=== PATIENT | male | born 1955 | race Caucasian/White ===

== ENCOUNTER 2017-08-10 07:54 | Day surgery (SDC) | payer OTHER, SELFPAY ==
[~2017-08-10] VITALS: Ht 193 cm; Wt 109.8 kg
[~2017-08-10 07:54] MED LIST: ASPI81EC PO; Aspirin EC81 MG PO; CITA20 PO; DIPH50 PO; DOCU100 PO; FLUO10 PO; Fluoxetine HCl10 M1; GLIP10 PO; HYDR1TAB94 PO; INSUASPI SC; INSULANPEN SC; LOSA25; LOSA25 PO; METF500 PO; NAPR220 PO; Norco 5-325 Ta1 EACH; ONE DAILY COMP1 EACH; Omeprazole20 M1 PO; PREG75; PREG75 PO; RANI150 PO; SIMV40 PO; SULTRIDS; TRAM50 PO; WARF10 PO; WARF3 PO
== END 2017-08-10 09:56 | disposition home or self-care (01) ==
LOC: ORSCMMR 07:54
PROVIDERS: Internal Medicine Gastroenterology
PROC: 0DJD8ZZ Inspection of Lower Intestinal Tract, Via Natural or Artificial Opening Endoscopic (ICD-10-PCS; principal; 2017-08-10 09:00)
DX: Z12.11 Encounter for screening for malignant neoplasm of colon (principal); K57.30 Diverticulosis of large intestine without perforation or abscess without bleeding; E11.40 Type 2 diabetes mellitus with diabetic neuropathy, unspecified; I10 Essential (primary) hypertension; Z79.4 Long term (current) use of insulin; Z79.899 Other long term (current) drug therapy; Z87.891 Personal history of nicotine dependence
CPT/HCPCS: 82947; J7120

== ENCOUNTER 2017-09-11 15:46 | Emergency (ER) | payer OTHER, SELFPAY ==
[~2017-09-11] VITALS: Ht 193 cm; Wt 108.9 kg
[2017-09-11 16:21] LABS: BASOPHILS ABSOLUTE AUTO 0.01 K/mm3 (0.00-0.23); BASOPHILS PERCENT AUTO 0 % (0-2); EOSINOPHILS ABSOLUTE AUTO 0.13 K/mm3 (0.00-0.68); EOSINOPHILS PERCENT AUTO 3 % (0-6); Hematocrit 38.4 % (37.0-53.0); Hemoglobin 12.7 g/dL (13.5-17.5); IMMATURE GRAN ABSOLUTE AUTO 0.01 K/mm3 (0.00-0.10); IMMATURE GRAN PERCENT AUTO 0 % (0-1); LYMPHOCYTES ABSOLUTE AUTO 1.41 K/mm3 (0.84-5.20); LYMPHOCYTES PERCENT AUTO 29 % (21-46); MONOCYTES ABSOLUTE AUTO 0.46 K/mm3 (0.16-1.47); MONOCYTES PERCENT AUTO 10 % (4-13); Mean Corpuscular HGB 31.4 pg (26.0-34.0); Mean Corpuscular HGB Conc 33.1 g/dL (31.5-36.5); Mean Corpuscular Volume 95 fL (80-100); Mean Platelet Volume 10.9 fL (9.1-12.4); NEUTROPHILS ABSOLUTE AUTO 2.83 K/mm3 (1.96-9.15); NEUTROPHILS PERCENT AUTO 58 % (41-73); Platelet Count 112 K/mm3 (150-400); RDW Coefficient Variation 13.2 % (11.7-14.2); RDW Standard Deviation 46.5 fL (35.1-46.3); Red Blood Cell Count 4.05 M/mm3 (4.30-5.90); White Blood Cell Count 4.85 K/mm3 (4.00-11.30)
[2017-09-11 16:38] LABS: Anion Gap 5 mmol/L (6-16); Blood Urea Nitrogen 15 mg/dL (8-24); Bun/Creatinine Ratio 19.6 (12.0-20.0); CO2, Blood 27 mmol/L (21-32); Calcium, Blood 8.6 mg/dL (8.5-10.1); Chloride, Blood 107 mmol/L (98-108); Creatinine, Blood 0.77 mg/dL (0.60-1.20); Glomerular Filtration Rate >60 (60-); Glucose, Blood 113 mg/dL (70-99); Potassium, Blood 3.9 mmol/L (3.5-5.5); Sodium, Blood 139 mmol/L (136-145); Troponin I <0.015 ng/mL (0.000-0.040)
[2017-09-11] MEDS ORDERED: Norco 5-325 Ta1 EACH PO (16:54)
[2017-09-11] MEDS ORDERED: Kristalose20 GM PO (16:54)
== END 2017-09-11 17:05 | disposition home or self-care (01) ==
LOC: ER 15:46
PROVIDERS: Emergency Medicine
DX: S29.9XXA Unspecified injury of thorax, initial encounter (principal); E11.9 Type 2 diabetes mellitus without complications; E66.01 Morbid (severe) obesity due to excess calories; J44.9 Chronic obstructive pulmonary disease, unspecified; Z87.891 Personal history of nicotine dependence; Z86.718 Personal history of other venous thrombosis and embolism; Z68.29 Body mass index [BMI] 29.0-29.9, adult; X58.XXXA Exposure to other specified factors, initial encounter
CPT/HCPCS: 36415; 71111; 80048; 84484; 85025; 93005; 93010; 96374; 96376; 99284; J3010

== ENCOUNTER → 2018-08-22 | Outpatient (CLI) | payer OTHER ==
[~2018-08-22] MED LIST changes: +Kristalose20 GM PO; +Norco 5-325 Ta1 EACH PO
== END | disposition home or self-care (01) ==
LOC: PLD 08:39 → LAB SHORT 08:39
DX: M77.40 Metatarsalgia, unspecified foot (principal); M89.9 Disorder of bone, unspecified; M21.6X9 Other acquired deformities of unspecified foot
CPT/HCPCS: 88300

== ENCOUNTER 2019-03-30 07:09 | Day surgery (SDC) | payer OTHER ==
[~2019-03-30] VITALS: Ht 190.5 cm; Wt 115.0 kg
--- NOTE | 2019-03-30 09:43 | NUR ---
PT ARRIVED BACK TO RECOVERY ROOM IN BED. LEFT GROIN SITE SOFT NON-TENDER WITH NO HEMATOMA NO PULSATILE BLEEDING. PT DENIES CP. PT C/O "15" CHRONIC RIGHT SHOULDER PAIN. CALL LIGHT IN REACH.
--- NOTE | 2019-03-30 12:26 | NUR ---
PT AMBULATED TO TO VOID. LEFT GROIN SITE STILL SOFT NON-TENDER WITH INTACT DRESSING AND NO HEMATOMA AND NO PULSATILE BLEEDING. 20 G IV DISCONTINUED FROM LEFT FA WITH INTACT CANNULA. PT ESCORTED OUT VIA WHEELCHAIR ESCORT.
== END 2019-03-30 12:30 | disposition home or self-care (01) ==
LOC: MHTC 07:09
DX: E11.51 Type 2 diabetes mellitus with diabetic peripheral angiopathy without gangrene (principal); E11.622 Type 2 diabetes mellitus with other skin ulcer; L97.519 Non-pressure chronic ulcer of other part of right foot with unspecified severity; I10 Essential (primary) hypertension; E78.00 Pure hypercholesterolemia, unspecified; M79.7 Fibromyalgia; Z88.0 Allergy status to penicillin; Z88.8 Allergy status to other drugs, medicaments and biological substances; Z79.82 Long term (current) use of aspirin; Z79.899 Other long term (current) drug therapy; Z79.4 Long term (current) use of insulin; Z87.891 Personal history of nicotine dependence
CPT/HCPCS: 36247; 75716; 75774; 99152; 99153; A9270-GY; C1760; C1769; C1887; C1894; J0360; J1644; J2250; J3010; J7030; Q9967

== ENCOUNTER 2019-04-13 08:00 | Day surgery (SDC) | payer OTHER | END 2019-04-13 23:19 | disposition home or self-care (01) | LOC: WOUND 08:00 | DX: E11.621 Type 2 diabetes mellitus with foot ulcer (principal); L97.515 Non-pressure chronic ulcer of other part of right foot with muscle involvement without evidence of necrosis; J44.9 Chronic obstructive pulmonary disease, unspecified; F32.9 Major depressive disorder, single episode, unspecified; E11.21 Type 2 diabetes mellitus with diabetic nephropathy; Z87.891 Personal history of nicotine dependence; Z79.4 Long term (current) use of insulin; Z79.899 Other long term (current) drug therapy; Z79.82 Long term (current) use of aspirin; Z88.0 Allergy status to penicillin | CPT/HCPCS: 87071; 87075; 87077; 87147; 87186; 87205 ==

== ENCOUNTER 2019-04-17 16:43 | Day surgery (SDC) | payer OTHER | END 2019-04-17 23:15 | disposition home or self-care (01) | LOC: WOUND 16:43 | DX: E11.621 Type 2 diabetes mellitus with foot ulcer (principal); L97.515 Non-pressure chronic ulcer of other part of right foot with muscle involvement without evidence of necrosis; J44.9 Chronic obstructive pulmonary disease, unspecified; F32.9 Major depressive disorder, single episode, unspecified; E11.21 Type 2 diabetes mellitus with diabetic nephropathy; Z79.4 Long term (current) use of insulin; Z79.899 Other long term (current) drug therapy ==

== ENCOUNTER 2019-04-27 13:50 | Day surgery (SDC) | payer OTHER | END 2019-04-27 23:09 | disposition home or self-care (01) | LOC: WOUND 13:50 | DX: E11.621 Type 2 diabetes mellitus with foot ulcer (principal); L97.412 Non-pressure chronic ulcer of right heel and midfoot with fat layer exposed; E11.21 Type 2 diabetes mellitus with diabetic nephropathy; J44.9 Chronic obstructive pulmonary disease, unspecified; F32.9 Major depressive disorder, single episode, unspecified; Z79.4 Long term (current) use of insulin; Z79.899 Other long term (current) drug therapy; Z79.82 Long term (current) use of aspirin ==

== ENCOUNTER 2019-05-02 14:54 | Day surgery (SDC) | payer OTHER | END 2019-05-02 23:04 | disposition home or self-care (01) | LOC: WOUND 14:54 | DX: E11.621 Type 2 diabetes mellitus with foot ulcer (principal); L97.513 Non-pressure chronic ulcer of other part of right foot with necrosis of muscle; E11.52 Type 2 diabetes mellitus with diabetic peripheral angiopathy with gangrene; I96 Gangrene, not elsewhere classified; M06.9 Rheumatoid arthritis, unspecified; M79.7 Fibromyalgia; J44.9 Chronic obstructive pulmonary disease, unspecified; F32.9 Major depressive disorder, single episode, unspecified; C94.80 Other specified leukemias not having achieved remission; E11.21 Type 2 diabetes mellitus with diabetic nephropathy; Z86.718 Personal history of other venous thrombosis and embolism; Z88.0 Allergy status to penicillin; Z88.8 Allergy status to other drugs, medicaments and biological substances; Z79.4 Long term (current) use of insulin; Z79.82 Long term (current) use of aspirin; Z79.899 Other long term (current) drug therapy ==

== ENCOUNTER 2019-05-09 15:15 | Day surgery (SDC) | payer OTHER | END 2019-05-09 23:33 | disposition home or self-care (01) | LOC: WOUND 15:15 | DX: E11.621 Type 2 diabetes mellitus with foot ulcer (principal); L97.515 Non-pressure chronic ulcer of other part of right foot with muscle involvement without evidence of necrosis; E11.21 Type 2 diabetes mellitus with diabetic nephropathy; J44.9 Chronic obstructive pulmonary disease, unspecified; F32.9 Major depressive disorder, single episode, unspecified; Z79.4 Long term (current) use of insulin; Z79.899 Other long term (current) drug therapy ==

== ENCOUNTER 2019-05-16 16:13 | Day surgery (SDC) | payer OTHER | END 2019-05-16 17:13 | disposition home or self-care (01) | LOC: WOUND | DX: E11.621 Type 2 diabetes mellitus with foot ulcer (principal); L97.515 Non-pressure chronic ulcer of other part of right foot with muscle involvement without evidence of necrosis; E11.21 Type 2 diabetes mellitus with diabetic nephropathy; E11.40 Type 2 diabetes mellitus with diabetic neuropathy, unspecified; Q66.12 Congenital talipes calcaneovarus, left foot; Q66.11 Congenital talipes calcaneovarus, right foot; C95.90 Leukemia, unspecified not having achieved remission; M06.9 Rheumatoid arthritis, unspecified; M79.7 Fibromyalgia; J44.9 Chronic obstructive pulmonary disease, unspecified; F32.9 Major depressive disorder, single episode, unspecified; Z86.718 Personal history of other venous thrombosis and embolism; Z88.0 Allergy status to penicillin; Z88.8 Allergy status to other drugs, medicaments and biological substances; Z79.82 Long term (current) use of aspirin; Z79.84 Long term (current) use of oral hypoglycemic drugs; Z79.899 Other long term (current) drug therapy ==

== ENCOUNTER 2019-05-23 15:12 | Day surgery (SDC) | payer OTHER | END 2019-05-23 22:35 | disposition home or self-care (01) | LOC: WOUND 15:12 | DX: E11.621 Type 2 diabetes mellitus with foot ulcer (principal); L97.512 Non-pressure chronic ulcer of other part of right foot with fat layer exposed; E11.40 Type 2 diabetes mellitus with diabetic neuropathy, unspecified; E11.21 Type 2 diabetes mellitus with diabetic nephropathy; C94.80 Other specified leukemias not having achieved remission; M06.9 Rheumatoid arthritis, unspecified; M79.7 Fibromyalgia; J44.9 Chronic obstructive pulmonary disease, unspecified; F32.9 Major depressive disorder, single episode, unspecified; Q66.12 Congenital talipes calcaneovarus, left foot; Q66.11 Congenital talipes calcaneovarus, right foot; Z88.0 Allergy status to penicillin; Z88.8 Allergy status to other drugs, medicaments and biological substances; Z86.718 Personal history of other venous thrombosis and embolism; Z79.01 Long term (current) use of anticoagulants; Z79.4 Long term (current) use of insulin; Z79.82 Long term (current) use of aspirin; Z79.899 Other long term (current) drug therapy ==

== ENCOUNTER 2019-05-30 09:07 | Day surgery (SDC) | payer OTHER | END 2019-05-30 22:44 | disposition home or self-care (01) | LOC: WOUND | DX: E11.621 Type 2 diabetes mellitus with foot ulcer (principal); E11.21 Type 2 diabetes mellitus with diabetic nephropathy; L97.415 Non-pressure chronic ulcer of right heel and midfoot with muscle involvement without evidence of necrosis; J44.9 Chronic obstructive pulmonary disease, unspecified; F32.9 Major depressive disorder, single episode, unspecified; G25.81 Restless legs syndrome; Z79.4 Long term (current) use of insulin; Z79.899 Other long term (current) drug therapy ==

== ENCOUNTER 2019-06-06 00:11 | Day surgery (SDC) | payer OTHER | END 2019-06-06 23:02 | disposition home or self-care (01) | LOC: WOUND 00:11 | DX: E11.621 Type 2 diabetes mellitus with foot ulcer (principal); E11.21 Type 2 diabetes mellitus with diabetic nephropathy; J44.9 Chronic obstructive pulmonary disease, unspecified; F32.9 Major depressive disorder, single episode, unspecified; L97.415 Non-pressure chronic ulcer of right heel and midfoot with muscle involvement without evidence of necrosis; Z79.4 Long term (current) use of insulin; Z79.899 Other long term (current) drug therapy | CPT/HCPCS: 87081 ==

== ENCOUNTER 2019-06-13 00:15 | Day surgery (SDC) | payer OTHER | END 2019-06-13 22:47 | disposition home or self-care (01) | LOC: WOUND 00:15 | DX: E11.621 Type 2 diabetes mellitus with foot ulcer (principal); E11.21 Type 2 diabetes mellitus with diabetic nephropathy; L97.412 Non-pressure chronic ulcer of right heel and midfoot with fat layer exposed; J44.9 Chronic obstructive pulmonary disease, unspecified; F32.9 Major depressive disorder, single episode, unspecified; Z79.4 Long term (current) use of insulin; Z79.899 Other long term (current) drug therapy ==

== ENCOUNTER 2019-06-20 00:11 | Day surgery (SDC) | payer OTHER | END 2019-06-20 22:57 | disposition home or self-care (01) | LOC: WOUND 00:11 | DX: E11.621 Type 2 diabetes mellitus with foot ulcer (principal); E11.21 Type 2 diabetes mellitus with diabetic nephropathy; L97.415 Non-pressure chronic ulcer of right heel and midfoot with muscle involvement without evidence of necrosis; J44.9 Chronic obstructive pulmonary disease, unspecified; F32.9 Major depressive disorder, single episode, unspecified; Z79.899 Other long term (current) drug therapy; Z79.4 Long term (current) use of insulin ==

== ENCOUNTER 2019-07-04 00:13 | Day surgery (SDC) | payer OTHER | END 2019-07-04 23:01 | disposition home or self-care (01) | LOC: WOUND 00:13 | DX: E11.621 Type 2 diabetes mellitus with foot ulcer (principal); L97.415 Non-pressure chronic ulcer of right heel and midfoot with muscle involvement without evidence of necrosis; J44.9 Chronic obstructive pulmonary disease, unspecified; E11.21 Type 2 diabetes mellitus with diabetic nephropathy; Z79.899 Other long term (current) drug therapy; Z79.84 Long term (current) use of oral hypoglycemic drugs; Z79.82 Long term (current) use of aspirin ==

== ENCOUNTER → 2019-07-11 | Day surgery (SDC) | payer OTHER | LOC: WOUND 00:12 | DX: E11.621 Type 2 diabetes mellitus with foot ulcer (principal); L97.515 Non-pressure chronic ulcer of other part of right foot with muscle involvement without evidence of necrosis; J44.9 Chronic obstructive pulmonary disease, unspecified; M06.9 Rheumatoid arthritis, unspecified; M79.7 Fibromyalgia; F32.9 Major depressive disorder, single episode, unspecified; E11.40 Type 2 diabetes mellitus with diabetic neuropathy, unspecified; Z86.718 Personal history of other venous thrombosis and embolism; Z79.899 Other long term (current) drug therapy | CPT/HCPCS: Q4196 ==

== ENCOUNTER 2019-07-14 08:19 | Day surgery (SDC) | payer OTHER | END 2019-07-14 22:47 | disposition home or self-care (01) | LOC: ATC 08:19 | DX: E11.621 Type 2 diabetes mellitus with foot ulcer (principal); E11.40 Type 2 diabetes mellitus with diabetic neuropathy, unspecified; E11.21 Type 2 diabetes mellitus with diabetic nephropathy; L97.419 Non-pressure chronic ulcer of right heel and midfoot with unspecified severity; J44.9 Chronic obstructive pulmonary disease, unspecified; F32.9 Major depressive disorder, single episode, unspecified; Z79.4 Long term (current) use of insulin; Z79.899 Other long term (current) drug therapy; Z79.82 Long term (current) use of aspirin ==

== ENCOUNTER 2019-07-18 02:11 | Day surgery (SDC) | payer OTHER | END 2019-07-18 23:00 | disposition home or self-care (01) | LOC: WOUND 02:11 | DX: E11.621 Type 2 diabetes mellitus with foot ulcer (principal); E11.21 Type 2 diabetes mellitus with diabetic nephropathy; L97.415 Non-pressure chronic ulcer of right heel and midfoot with muscle involvement without evidence of necrosis; J44.9 Chronic obstructive pulmonary disease, unspecified; F32.9 Major depressive disorder, single episode, unspecified; Z79.899 Other long term (current) drug therapy; Z79.4 Long term (current) use of insulin | CPT/HCPCS: Q4196 ==

== ENCOUNTER 2019-07-25 00:54 | Day surgery (SDC) | payer OTHER | END 2019-07-25 12:00 | disposition home or self-care (01) | LOC: WOUND 00:54 | DX: E11.621 Type 2 diabetes mellitus with foot ulcer (principal); E11.21 Type 2 diabetes mellitus with diabetic nephropathy; J44.9 Chronic obstructive pulmonary disease, unspecified; F32.9 Major depressive disorder, single episode, unspecified; L97.415 Non-pressure chronic ulcer of right heel and midfoot with muscle involvement without evidence of necrosis; Z79.899 Other long term (current) drug therapy; Z79.4 Long term (current) use of insulin | CPT/HCPCS: Q4196 ==

== ENCOUNTER 2019-08-01 00:15 | Day surgery (SDC) | payer OTHER | END 2019-08-01 22:53 | disposition home or self-care (01) | LOC: WOUND 00:15 | DX: E11.621 Type 2 diabetes mellitus with foot ulcer (principal); E11.21 Type 2 diabetes mellitus with diabetic nephropathy; J44.9 Chronic obstructive pulmonary disease, unspecified; F32.9 Major depressive disorder, single episode, unspecified; L97.415 Non-pressure chronic ulcer of right heel and midfoot with muscle involvement without evidence of necrosis; Z79.899 Other long term (current) drug therapy; Z79.4 Long term (current) use of insulin; Z79.82 Long term (current) use of aspirin | CPT/HCPCS: Q4196 ==

== ENCOUNTER 2019-08-08 00:24 | Day surgery (SDC) | payer OTHER | END 2019-08-08 22:51 | disposition home or self-care (01) | LOC: WOUND 00:24 | DX: E11.621 Type 2 diabetes mellitus with foot ulcer (principal); L97.513 Non-pressure chronic ulcer of other part of right foot with necrosis of muscle; E11.21 Type 2 diabetes mellitus with diabetic nephropathy | CPT/HCPCS: Q4133 ==

== ENCOUNTER 2019-08-15 00:19 | Day surgery (SDC) | payer OTHER | END 2019-08-15 22:49 | disposition home or self-care (01) | LOC: WOUND 00:19 | DX: E11.621 Type 2 diabetes mellitus with foot ulcer (principal); E11.40 Type 2 diabetes mellitus with diabetic neuropathy, unspecified; E11.21 Type 2 diabetes mellitus with diabetic nephropathy; J44.9 Chronic obstructive pulmonary disease, unspecified; L97.412 Non-pressure chronic ulcer of right heel and midfoot with fat layer exposed; Z79.899 Other long term (current) drug therapy; Z79.4 Long term (current) use of insulin | CPT/HCPCS: Q4133 ==

== ENCOUNTER 2019-08-22 00:09 | Day surgery (SDC) | payer OTHER | END 2019-08-22 22:50 | disposition home or self-care (01) | LOC: WOUND 00:09 | DX: E11.621 Type 2 diabetes mellitus with foot ulcer (principal); J44.9 Chronic obstructive pulmonary disease, unspecified; E11.21 Type 2 diabetes mellitus with diabetic nephropathy; L97.412 Non-pressure chronic ulcer of right heel and midfoot with fat layer exposed; Z79.4 Long term (current) use of insulin | CPT/HCPCS: Q4133 ==

== ENCOUNTER 2019-09-05 00:06 | Day surgery (SDC) | payer OTHER | END 2019-09-05 22:56 | disposition home or self-care (01) | LOC: WOUND 00:06 | DX: E11.621 Type 2 diabetes mellitus with foot ulcer (principal); E11.21 Type 2 diabetes mellitus with diabetic nephropathy; J44.9 Chronic obstructive pulmonary disease, unspecified; L97.412 Non-pressure chronic ulcer of right heel and midfoot with fat layer exposed; Z79.899 Other long term (current) drug therapy; Z79.4 Long term (current) use of insulin | CPT/HCPCS: Q4133 ==

== ENCOUNTER 2019-09-12 00:24 | Day surgery (SDC) | payer OTHER | END 2019-09-12 22:53 | disposition home or self-care (01) | LOC: WOUND 00:24 | DX: E11.621 Type 2 diabetes mellitus with foot ulcer (principal); L97.412 Non-pressure chronic ulcer of right heel and midfoot with fat layer exposed; E11.21 Type 2 diabetes mellitus with diabetic nephropathy; J44.9 Chronic obstructive pulmonary disease, unspecified ==

== ENCOUNTER 2019-09-19 00:34 | Day surgery (SDC) | payer OTHER | END 2019-09-19 22:38 | disposition home or self-care (01) | LOC: WOUND 00:34 | DX: E11.621 Type 2 diabetes mellitus with foot ulcer (principal); L97.512 Non-pressure chronic ulcer of other part of right foot with fat layer exposed; E11.21 Type 2 diabetes mellitus with diabetic nephropathy; E11.40 Type 2 diabetes mellitus with diabetic neuropathy, unspecified ==

== ENCOUNTER 2019-09-26 00:07 | Day surgery (SDC) | payer OTHER | END 2019-09-26 22:37 | disposition home or self-care (01) | LOC: WOUND 00:07 | DX: E11.621 Type 2 diabetes mellitus with foot ulcer (principal); E11.21 Type 2 diabetes mellitus with diabetic nephropathy; J44.9 Chronic obstructive pulmonary disease, unspecified; F32.9 Major depressive disorder, single episode, unspecified; L97.412 Non-pressure chronic ulcer of right heel and midfoot with fat layer exposed; Z79.4 Long term (current) use of insulin; Z79.899 Other long term (current) drug therapy ==

== ENCOUNTER 2019-10-03 00:11 | Day surgery (SDC) | payer OTHER | END 2019-10-03 22:47 | disposition home or self-care (01) | LOC: WOUND 00:11 | DX: E11.621 Type 2 diabetes mellitus with foot ulcer (principal); L97.412 Non-pressure chronic ulcer of right heel and midfoot with fat layer exposed; E11.21 Type 2 diabetes mellitus with diabetic nephropathy; Z79.4 Long term (current) use of insulin; Z79.82 Long term (current) use of aspirin; Z79.899 Other long term (current) drug therapy | CPT/HCPCS: G0463 ==

== ENCOUNTER 2019-10-10 00:26 | Day surgery (SDC) | payer OTHER | END 2019-10-10 23:13 | disposition home or self-care (01) | LOC: WOUND 00:26 | DX: E11.621 Type 2 diabetes mellitus with foot ulcer (principal); E11.21 Type 2 diabetes mellitus with diabetic nephropathy; L97.509 Non-pressure chronic ulcer of other part of unspecified foot with unspecified severity; Z79.4 Long term (current) use of insulin | CPT/HCPCS: G0463 ==

== ENCOUNTER 2019-10-17 00:10 | Day surgery (SDC) | payer OTHER | END 2019-10-17 22:54 | disposition home or self-care (01) | LOC: WOUND 00:10 | DX: E11.621 Type 2 diabetes mellitus with foot ulcer (principal); E11.21 Type 2 diabetes mellitus with diabetic nephropathy; J44.9 Chronic obstructive pulmonary disease, unspecified; F32.9 Major depressive disorder, single episode, unspecified; L97.412 Non-pressure chronic ulcer of right heel and midfoot with fat layer exposed; Z79.4 Long term (current) use of insulin; Z79.899 Other long term (current) drug therapy ==

== ENCOUNTER 2019-10-24 00:16 | Day surgery (SDC) | payer OTHER | END 2019-10-24 23:34 | disposition home or self-care (01) | LOC: WOUND 00:16 | DX: E11.621 Type 2 diabetes mellitus with foot ulcer (principal); L97.512 Non-pressure chronic ulcer of other part of right foot with fat layer exposed; E11.21 Type 2 diabetes mellitus with diabetic nephropathy ==

== ENCOUNTER 2019-10-31 00:06 | Day surgery (SDC) | payer OTHER | END 2019-10-31 23:07 | disposition home or self-care (01) | LOC: WOUND 00:06 | DX: E11.621 Type 2 diabetes mellitus with foot ulcer (principal); E11.21 Type 2 diabetes mellitus with diabetic nephropathy; J44.9 Chronic obstructive pulmonary disease, unspecified; F32.9 Major depressive disorder, single episode, unspecified; L97.412 Non-pressure chronic ulcer of right heel and midfoot with fat layer exposed; Z79.4 Long term (current) use of insulin; Z79.899 Other long term (current) drug therapy; Z79.82 Long term (current) use of aspirin ==

== ENCOUNTER 2019-11-14 00:17 | Day surgery (SDC) | payer OTHER | END 2019-11-14 23:15 | disposition home or self-care (01) | LOC: WOUND 00:17 | DX: E11.621 Type 2 diabetes mellitus with foot ulcer (principal); E11.21 Type 2 diabetes mellitus with diabetic nephropathy; L97.412 Non-pressure chronic ulcer of right heel and midfoot with fat layer exposed; J44.9 Chronic obstructive pulmonary disease, unspecified; F32.9 Major depressive disorder, single episode, unspecified; Z79.899 Other long term (current) drug therapy; Z79.4 Long term (current) use of insulin ==

== ENCOUNTER 2019-11-28 00:13 | Day surgery (SDC) | payer OTHER | END 2019-11-28 22:41 | disposition home or self-care (01) | LOC: WOUND 00:13 | DX: E11.621 Type 2 diabetes mellitus with foot ulcer (principal); E11.21 Type 2 diabetes mellitus with diabetic nephropathy; L97.419 Non-pressure chronic ulcer of right heel and midfoot with unspecified severity ==

== ENCOUNTER 2020-01-16 00:10 | Day surgery (SDC) | payer OTHER | END 2020-01-16 23:13 | disposition home or self-care (01) | LOC: WOUND 00:10 | DX: E11.621 Type 2 diabetes mellitus with foot ulcer (principal); L97.512 Non-pressure chronic ulcer of other part of right foot with fat layer exposed; E11.21 Type 2 diabetes mellitus with diabetic nephropathy; J44.9 Chronic obstructive pulmonary disease, unspecified; Z79.4 Long term (current) use of insulin; Z79.899 Other long term (current) drug therapy | CPT/HCPCS: G0463 ==

== ENCOUNTER 2020-01-30 00:35 | Day surgery (SDC) | payer OTHER | END 2020-01-30 22:39 | disposition home or self-care (01) | LOC: WOUND 00:35 | DX: E11.621 Type 2 diabetes mellitus with foot ulcer (principal); L97.512 Non-pressure chronic ulcer of other part of right foot with fat layer exposed; E11.21 Type 2 diabetes mellitus with diabetic nephropathy; J44.9 Chronic obstructive pulmonary disease, unspecified; Z79.4 Long term (current) use of insulin ==

== ENCOUNTER 2020-02-13 00:34 | Day surgery (SDC) | payer OTHER | END 2020-02-13 22:46 | disposition home or self-care (01) | LOC: WOUND 00:34 | DX: E11.621 Type 2 diabetes mellitus with foot ulcer (principal); E11.21 Type 2 diabetes mellitus with diabetic nephropathy; L97.512 Non-pressure chronic ulcer of other part of right foot with fat layer exposed; Z79.4 Long term (current) use of insulin | CPT/HCPCS: G0463 ==

== ENCOUNTER 2020-02-27 05:28 | Day surgery (SDC) | payer OTHER | END 2020-02-27 23:04 | disposition home or self-care (01) | LOC: WOUND 05:28 | DX: E11.621 Type 2 diabetes mellitus with foot ulcer (principal); L97.412 Non-pressure chronic ulcer of right heel and midfoot with fat layer exposed; E11.52 Type 2 diabetes mellitus with diabetic peripheral angiopathy with gangrene; I96 Gangrene, not elsewhere classified; E11.40 Type 2 diabetes mellitus with diabetic neuropathy, unspecified; Z79.4 Long term (current) use of insulin; Z79.82 Long term (current) use of aspirin; Z79.899 Other long term (current) drug therapy; Z88.0 Allergy status to penicillin; Z88.8 Allergy status to other drugs, medicaments and biological substances | CPT/HCPCS: G0463 ==

== ENCOUNTER 2020-03-12 00:39 | Day surgery (SDC) | payer OTHER | END 2020-03-12 22:52 | disposition home or self-care (01) | LOC: WOUND 00:39 | DX: E11.621 Type 2 diabetes mellitus with foot ulcer (principal); L97.412 Non-pressure chronic ulcer of right heel and midfoot with fat layer exposed; E11.52 Type 2 diabetes mellitus with diabetic peripheral angiopathy with gangrene; I96 Gangrene, not elsewhere classified; E11.40 Type 2 diabetes mellitus with diabetic neuropathy, unspecified; E11.21 Type 2 diabetes mellitus with diabetic nephropathy; M06.9 Rheumatoid arthritis, unspecified; M79.7 Fibromyalgia; J44.9 Chronic obstructive pulmonary disease, unspecified; F32.9 Major depressive disorder, single episode, unspecified; Z79.4 Long term (current) use of insulin; Z79.82 Long term (current) use of aspirin; Z79.899 Other long term (current) drug therapy; Z86.718 Personal history of other venous thrombosis and embolism; Z88.0 Allergy status to penicillin; Z88.8 Allergy status to other drugs, medicaments and biological substances ==

== ENCOUNTER 2020-03-26 02:03 | Day surgery (SDC) | payer OTHER | END 2020-03-26 23:11 | disposition home or self-care (01) | LOC: WOUND 02:03 | DX: E11.621 Type 2 diabetes mellitus with foot ulcer (principal); L97.412 Non-pressure chronic ulcer of right heel and midfoot with fat layer exposed; E11.52 Type 2 diabetes mellitus with diabetic peripheral angiopathy with gangrene; I96 Gangrene, not elsewhere classified; E11.21 Type 2 diabetes mellitus with diabetic nephropathy; E11.40 Type 2 diabetes mellitus with diabetic neuropathy, unspecified; C95.90 Leukemia, unspecified not having achieved remission; M06.9 Rheumatoid arthritis, unspecified; M79.7 Fibromyalgia; J44.9 Chronic obstructive pulmonary disease, unspecified; F32.9 Major depressive disorder, single episode, unspecified; Z79.4 Long term (current) use of insulin; Z79.82 Long term (current) use of aspirin; Z79.899 Other long term (current) drug therapy; Z86.718 Personal history of other venous thrombosis and embolism; Z88.0 Allergy status to penicillin; Z88.8 Allergy status to other drugs, medicaments and biological substances ==

== ENCOUNTER 2020-04-02 00:53 | Day surgery (SDC) | payer OTHER | END 2020-04-02 23:01 | disposition home or self-care (01) | LOC: WOUND 00:53 | DX: E11.621 Type 2 diabetes mellitus with foot ulcer (principal); L97.512 Non-pressure chronic ulcer of other part of right foot with fat layer exposed; E11.21 Type 2 diabetes mellitus with diabetic nephropathy; J44.9 Chronic obstructive pulmonary disease, unspecified; F32.9 Major depressive disorder, single episode, unspecified; Z79.4 Long term (current) use of insulin; Z79.899 Other long term (current) drug therapy ==

== ENCOUNTER 2020-04-10 00:58 | Day surgery (SDC) | payer OTHER | END 2020-04-10 22:45 | disposition home or self-care (01) | LOC: WOUND 00:58 | DX: E11.621 Type 2 diabetes mellitus with foot ulcer (principal); L97.412 Non-pressure chronic ulcer of right heel and midfoot with fat layer exposed; E11.52 Type 2 diabetes mellitus with diabetic peripheral angiopathy with gangrene; I96 Gangrene, not elsewhere classified; E11.40 Type 2 diabetes mellitus with diabetic neuropathy, unspecified; E11.21 Type 2 diabetes mellitus with diabetic nephropathy; C94.80 Other specified leukemias not having achieved remission; M06.9 Rheumatoid arthritis, unspecified; M79.7 Fibromyalgia; J44.9 Chronic obstructive pulmonary disease, unspecified; F32.9 Major depressive disorder, single episode, unspecified; Z86.718 Personal history of other venous thrombosis and embolism; Z79.4 Long term (current) use of insulin; Z79.82 Long term (current) use of aspirin; Z79.899 Other long term (current) drug therapy; Z88.0 Allergy status to penicillin; Z88.8 Allergy status to other drugs, medicaments and biological substances | CPT/HCPCS: Q4133 ==

== ENCOUNTER 2020-04-16 00:56 | Day surgery (SDC) | payer OTHER | END 2020-04-16 23:36 | disposition home or self-care (01) | LOC: WOUND 00:56 | DX: E11.621 Type 2 diabetes mellitus with foot ulcer (principal); L97.412 Non-pressure chronic ulcer of right heel and midfoot with fat layer exposed; E11.52 Type 2 diabetes mellitus with diabetic peripheral angiopathy with gangrene; I96 Gangrene, not elsewhere classified; E11.40 Type 2 diabetes mellitus with diabetic neuropathy, unspecified; E11.21 Type 2 diabetes mellitus with diabetic nephropathy; C94.80 Other specified leukemias not having achieved remission; M06.9 Rheumatoid arthritis, unspecified; M79.7 Fibromyalgia; J44.9 Chronic obstructive pulmonary disease, unspecified; F32.9 Major depressive disorder, single episode, unspecified; Z86.718 Personal history of other venous thrombosis and embolism; Z79.4 Long term (current) use of insulin; Z79.82 Long term (current) use of aspirin; Z79.899 Other long term (current) drug therapy; Z88.0 Allergy status to penicillin; Z88.8 Allergy status to other drugs, medicaments and biological substances | CPT/HCPCS: Q4133 ==

== ENCOUNTER 2020-04-22 00:39 | Day surgery (SDC) | payer OTHER | END 2020-04-22 22:52 | disposition home or self-care (01) | LOC: WOUND 00:39 | DX: E11.621 Type 2 diabetes mellitus with foot ulcer (principal); E11.21 Type 2 diabetes mellitus with diabetic nephropathy; L97.512 Non-pressure chronic ulcer of other part of right foot with fat layer exposed; J44.9 Chronic obstructive pulmonary disease, unspecified; Z79.84 Long term (current) use of oral hypoglycemic drugs | CPT/HCPCS: Q4133 ==

== ENCOUNTER 2020-04-30 00:27 | Day surgery (SDC) | payer OTHER | END 2020-04-30 22:39 | disposition home or self-care (01) | LOC: WOUND 00:27 | DX: E11.621 Type 2 diabetes mellitus with foot ulcer (principal); L97.412 Non-pressure chronic ulcer of right heel and midfoot with fat layer exposed; E11.40 Type 2 diabetes mellitus with diabetic neuropathy, unspecified; E11.21 Type 2 diabetes mellitus with diabetic nephropathy; M06.9 Rheumatoid arthritis, unspecified; M79.7 Fibromyalgia; J44.9 Chronic obstructive pulmonary disease, unspecified; F32.9 Major depressive disorder, single episode, unspecified; Z79.4 Long term (current) use of insulin; Z79.82 Long term (current) use of aspirin; Z79.899 Other long term (current) drug therapy; Z86.718 Personal history of other venous thrombosis and embolism | CPT/HCPCS: Q4133 ==

== ENCOUNTER 2020-05-06 00:14 | Day surgery (SDC) | payer OTHER | END 2020-05-06 22:54 | disposition home or self-care (01) | LOC: WOUND 00:14 | DX: E11.621 Type 2 diabetes mellitus with foot ulcer (principal); L97.412 Non-pressure chronic ulcer of right heel and midfoot with fat layer exposed; E11.52 Type 2 diabetes mellitus with diabetic peripheral angiopathy with gangrene; I96 Gangrene, not elsewhere classified; E11.40 Type 2 diabetes mellitus with diabetic neuropathy, unspecified; M06.9 Rheumatoid arthritis, unspecified; M79.7 Fibromyalgia; J44.9 Chronic obstructive pulmonary disease, unspecified; F32.9 Major depressive disorder, single episode, unspecified; Z86.718 Personal history of other venous thrombosis and embolism; Z79.4 Long term (current) use of insulin; Z79.82 Long term (current) use of aspirin; Z79.899 Other long term (current) drug therapy ==

== ENCOUNTER 2020-05-13 00:22 | Day surgery (SDC) | payer OTHER | END 2020-05-13 23:47 | disposition home or self-care (01) | LOC: WOUND 00:22 | DX: E11.621 Type 2 diabetes mellitus with foot ulcer (principal); L97.512 Non-pressure chronic ulcer of other part of right foot with fat layer exposed; E11.21 Type 2 diabetes mellitus with diabetic nephropathy; J44.9 Chronic obstructive pulmonary disease, unspecified; Z79.4 Long term (current) use of insulin; Z79.899 Other long term (current) drug therapy | CPT/HCPCS: Q4133 ==

== ENCOUNTER 2020-05-20 00:22 | Day surgery (SDC) | payer OTHER | END 2020-05-20 23:04 | disposition home or self-care (01) | LOC: WOUND 00:22 | DX: E11.621 Type 2 diabetes mellitus with foot ulcer (principal); L97.412 Non-pressure chronic ulcer of right heel and midfoot with fat layer exposed; E11.40 Type 2 diabetes mellitus with diabetic neuropathy, unspecified; E11.21 Type 2 diabetes mellitus with diabetic nephropathy; M06.9 Rheumatoid arthritis, unspecified; J44.9 Chronic obstructive pulmonary disease, unspecified; M79.7 Fibromyalgia; F32.9 Major depressive disorder, single episode, unspecified; Z79.4 Long term (current) use of insulin; Z79.82 Long term (current) use of aspirin; Z79.899 Other long term (current) drug therapy; Z86.718 Personal history of other venous thrombosis and embolism; Z88.0 Allergy status to penicillin; Z88.8 Allergy status to other drugs, medicaments and biological substances | CPT/HCPCS: Q4133 ==

== ENCOUNTER 2020-05-27 00:44 | Day surgery (SDC) | payer OTHER | END 2020-05-27 22:53 | disposition home or self-care (01) | LOC: WOUND 00:44 | DX: E11.621 Type 2 diabetes mellitus with foot ulcer (principal); L97.512 Non-pressure chronic ulcer of other part of right foot with fat layer exposed; E11.21 Type 2 diabetes mellitus with diabetic nephropathy; Z79.4 Long term (current) use of insulin; J44.9 Chronic obstructive pulmonary disease, unspecified; M79.7 Fibromyalgia; M06.9 Rheumatoid arthritis, unspecified; Z86.718 Personal history of other venous thrombosis and embolism ==

== ENCOUNTER 2020-06-03 00:34 | Day surgery (SDC) | payer OTHER, SELFPAY ==
[~2020-06-03 00:34] MED LIST changes: -LOSA25 PO
== END 2020-06-03 23:13 | disposition home or self-care (01) ==
LOC: WOUND 00:34
DX: E11.621 Type 2 diabetes mellitus with foot ulcer (principal); L97.412 Non-pressure chronic ulcer of right heel and midfoot with fat layer exposed; E11.40 Type 2 diabetes mellitus with diabetic neuropathy, unspecified; E11.21 Type 2 diabetes mellitus with diabetic nephropathy; M06.9 Rheumatoid arthritis, unspecified; M79.7 Fibromyalgia; J44.9 Chronic obstructive pulmonary disease, unspecified; F32.9 Major depressive disorder, single episode, unspecified; Z79.4 Long term (current) use of insulin; Z79.82 Long term (current) use of aspirin; Z79.899 Other long term (current) drug therapy; Z88.0 Allergy status to penicillin; Z88.8 Allergy status to other drugs, medicaments and biological substances; Z86.718 Personal history of other venous thrombosis and embolism

== ENCOUNTER 2020-06-10 00:25 | Day surgery (SDC) | payer OTHER | END 2020-06-10 22:46 | disposition home or self-care (01) | LOC: WOUND 00:25 | DX: E11.621 Type 2 diabetes mellitus with foot ulcer (principal); L97.512 Non-pressure chronic ulcer of other part of right foot with fat layer exposed; M06.9 Rheumatoid arthritis, unspecified; M79.7 Fibromyalgia; F32.9 Major depressive disorder, single episode, unspecified; J44.9 Chronic obstructive pulmonary disease, unspecified; Z85.6 Personal history of leukemia; Z86.718 Personal history of other venous thrombosis and embolism; Z88.0 Allergy status to penicillin; Z88.8 Allergy status to other drugs, medicaments and biological substances; Z79.82 Long term (current) use of aspirin; Z79.4 Long term (current) use of insulin; Z79.899 Other long term (current) drug therapy | CPT/HCPCS: G0463 ==

== ENCOUNTER 2020-06-17 00:20 | Day surgery (SDC) | payer OTHER, SELFPAY | END 2020-06-17 22:44 | disposition home or self-care (01) | LOC: WOUND 00:20 | DX: E11.621 Type 2 diabetes mellitus with foot ulcer (principal); L97.512 Non-pressure chronic ulcer of other part of right foot with fat layer exposed; E11.21 Type 2 diabetes mellitus with diabetic nephropathy ==

== ENCOUNTER 2020-06-24 00:39 | Day surgery (SDC) | payer OTHER, SELFPAY | END 2020-06-24 23:45 | LOC: WOUND 00:39 | DX: E11.621 Type 2 diabetes mellitus with foot ulcer (principal); L97.512 Non-pressure chronic ulcer of other part of right foot with fat layer exposed; E11.21 Type 2 diabetes mellitus with diabetic nephropathy; M79.7 Fibromyalgia; F32.9 Major depressive disorder, single episode, unspecified; Z79.4 Long term (current) use of insulin ==

== ENCOUNTER 2020-07-01 00:33 | Day surgery (SDC) | payer OTHER, SELFPAY | END 2020-07-01 23:30 | disposition home or self-care (01) | LOC: WOUND 00:33 | DX: E11.621 Type 2 diabetes mellitus with foot ulcer (principal); L97.412 Non-pressure chronic ulcer of right heel and midfoot with fat layer exposed; E11.21 Type 2 diabetes mellitus with diabetic nephropathy; J44.9 Chronic obstructive pulmonary disease, unspecified | CPT/HCPCS: A9270 ==

== ENCOUNTER 2020-07-08 00:29 | Day surgery (SDC) | payer OTHER, SELFPAY | END 2020-07-08 23:58 | disposition home or self-care (01) | LOC: WOUND 00:29 | DX: E11.621 Type 2 diabetes mellitus with foot ulcer (principal); L97.412 Non-pressure chronic ulcer of right heel and midfoot with fat layer exposed; E11.21 Type 2 diabetes mellitus with diabetic nephropathy; M06.9 Rheumatoid arthritis, unspecified; J44.9 Chronic obstructive pulmonary disease, unspecified; F32.9 Major depressive disorder, single episode, unspecified; Q66.71 Congenital pes cavus, right foot; Z85.6 Personal history of leukemia; Z86.718 Personal history of other venous thrombosis and embolism ==

== ENCOUNTER 2020-07-15 00:41 | Day surgery (SDC) | payer OTHER, SELFPAY | END 2020-07-15 22:56 | disposition home or self-care (01) | LOC: WOUND 00:41 | DX: E11.621 Type 2 diabetes mellitus with foot ulcer (principal); L97.512 Non-pressure chronic ulcer of other part of right foot with fat layer exposed; E11.21 Type 2 diabetes mellitus with diabetic nephropathy; M06.9 Rheumatoid arthritis, unspecified; M79.7 Fibromyalgia; J44.9 Chronic obstructive pulmonary disease, unspecified; F32.9 Major depressive disorder, single episode, unspecified; Z85.6 Personal history of leukemia; Z86.718 Personal history of other venous thrombosis and embolism ==

== ENCOUNTER 2020-07-22 00:47 | Day surgery (SDC) | payer OTHER | END 2020-07-22 22:54 | disposition home or self-care (01) | LOC: WOUND 00:47 | DX: E11.621 Type 2 diabetes mellitus with foot ulcer (principal); L97.412 Non-pressure chronic ulcer of right heel and midfoot with fat layer exposed; E11.21 Type 2 diabetes mellitus with diabetic nephropathy; M06.9 Rheumatoid arthritis, unspecified; J44.9 Chronic obstructive pulmonary disease, unspecified; M79.7 Fibromyalgia; Q66.71 Congenital pes cavus, right foot; F32.9 Major depressive disorder, single episode, unspecified; Z85.6 Personal history of leukemia; Z86.718 Personal history of other venous thrombosis and embolism | CPT/HCPCS: G0463 ==

== ENCOUNTER 2020-07-29 01:20 | Day surgery (SDC) | payer OTHER | END 2020-07-29 23:08 | disposition home or self-care (01) | LOC: WOUND 01:20 | DX: E11.621 Type 2 diabetes mellitus with foot ulcer (principal); L97.415 Non-pressure chronic ulcer of right heel and midfoot with muscle involvement without evidence of necrosis; E11.21 Type 2 diabetes mellitus with diabetic nephropathy; J44.9 Chronic obstructive pulmonary disease, unspecified; M79.7 Fibromyalgia; M06.9 Rheumatoid arthritis, unspecified; Q66.12 Congenital talipes calcaneovarus, left foot; Q66.11 Congenital talipes calcaneovarus, right foot; Z86.718 Personal history of other venous thrombosis and embolism; Z85.6 Personal history of leukemia | CPT/HCPCS: A9270; G0463 ==

== ENCOUNTER 2020-08-05 00:07 | Day surgery (SDC) | payer OTHER | END 2020-08-05 23:03 | disposition home or self-care (01) | LOC: WOUND 00:07 | DX: E11.621 Type 2 diabetes mellitus with foot ulcer (principal); L97.415 Non-pressure chronic ulcer of right heel and midfoot with muscle involvement without evidence of necrosis; J44.9 Chronic obstructive pulmonary disease, unspecified; M79.7 Fibromyalgia; E11.21 Type 2 diabetes mellitus with diabetic nephropathy; Z86.718 Personal history of other venous thrombosis and embolism | CPT/HCPCS: Q4196 ==

== ENCOUNTER 2020-08-12 00:39 | Day surgery (SDC) | payer OTHER | END 2020-08-12 23:01 | disposition home or self-care (01) | LOC: WOUND 00:39 | DX: E11.621 Type 2 diabetes mellitus with foot ulcer (principal); L97.512 Non-pressure chronic ulcer of other part of right foot with fat layer exposed; E11.21 Type 2 diabetes mellitus with diabetic nephropathy; J44.9 Chronic obstructive pulmonary disease, unspecified | CPT/HCPCS: Q4196 ==

== ENCOUNTER 2020-08-19 04:43 | Inpatient (IN) | payer OTHER, MEDICARE ==
[~2020-08-19] VITALS: Ht 190.5 cm; Wt 113.8 kg
[2020-08-19 05:13] LABS: BASOPHILS ABSOLUTE AUTO 0.02 K/mm3 (0.00-0.23); BASOPHILS PERCENT AUTO 0 % (0-2); EOSINOPHILS ABSOLUTE AUTO 0.07 K/mm3 (0.00-0.68); EOSINOPHILS PERCENT AUTO 1 % (0-6); Hematocrit 36.6 % (37.0-53.0); Hemoglobin 11.6 g/dL (13.5-17.5); IMMATURE GRAN ABSOLUTE AUTO 0.01 K/mm3 (0.00-0.10); IMMATURE GRAN PERCENT AUTO 0 % (0-1); LYMPHOCYTES ABSOLUTE AUTO 0.82 K/mm3 (0.84-5.20); LYMPHOCYTES PERCENT AUTO 13 % (21-46); MONOCYTES ABSOLUTE AUTO 0.48 K/mm3 (0.16-1.47); MONOCYTES PERCENT AUTO 8 % (4-13); Mean Corpuscular HGB Conc 31.7 g/dL (31.5-36.5); Mean Corpuscular Volume 88 fL (80-100); Mean Platelet Volume 10.3 fL (9.1-12.4); NEUTROPHILS ABSOLUTE AUTO 4.91 K/mm3 (1.96-9.15); NEUTROPHILS PERCENT AUTO 78 % (41-73); Platelet Count 138 K/mm3 (150-400); RDW Coefficient Variation 15.7 % (11.7-14.2); RDW Standard Deviation 50.8 fL (35.1-46.3); Red Blood Cell Count 4.14 M/mm3 (4.30-5.90); White Blood Cell Count 6.31 K/mm3 (4.00-11.30)
[2020-08-19 05:33] LABS: Alanine Aminotransfer (ALT/SGP 29 U/L (12-78); Albumin, Blood 3.5 g/dL (3.4-5.0); Albumin/Globulin Ratio 0.7 (0.8-1.8); Alk Phos 95 U/L (50-136); Anion Gap 5 mmol/L (6-16); Aspartate Aminotrans (AST/SGOT 20 U/L (12-37); Bilirubin, Total 1.1 mg/dL (0.1-1.0); Blood Urea Nitrogen 16 mg/dL (8-24); Bun/Creatinine Ratio 24.2 (12.0-20.0); CO2, Blood 27 mmol/L (21-32); Calcium, Blood 9.2 mg/dL (8.5-10.1); Chloride, Blood 106 mmol/L (98-108); Creatinine, Blood 0.66 mg/dL (0.60-1.20); Globulin, Blood 4.8 g/dL (2.2-4.0); Glomerular Filtration Rate >60 (60-); Glucose, Blood 157 mg/dL (70-99); Potassium, Blood 3.7 mmol/L (3.5-5.5); Sodium, Blood 138 mmol/L (136-145); Total Protein, Blood 8.3 g/dL (6.4-8.2); Troponin I <0.015 ng/mL (0.000-0.040)
[2020-08-19 08:32] LABS: CPK Creatine Kinase 92 U/L (39-308)
--- NOTE | 2020-08-19 10:10 | NUR ---
PT ARRIVES FROM [facility], ESCORTED BY HEART CENTER STAFF. UPON PT ARRIVAL AND ASSESSMENT OF RT RADIAL SITE, PT IS FOUND TO HAVE LARGE HEMATOMA MEDIAL TO TR BAND, HEART CENTER STAFF APPLY PRESSURE AND APPLY SECOND TR BAND, AND INFLATE TO 12 CC. 1ST TR BAND WNL, HEART CENTER STAFF ADDS 2 CC AIR, MAKING THE TOTAL IN 1ST BAND 12 CC. PT IS A&O, RESP EVEN AND UNLABORED ON ROOM AIR, HRR, DENIES CHEST PAIN/PRESSURE AT THIS TIME, NG TUBE CONTINUES IN PLACE AND SET UP TO INTERMITTENT SUCTION.
[2020-08-19 13:20] LABS: CPK Creatine Kinase 98 U/L (39-308)
--- NOTE | 2020-08-19 16:04 | NUR ---
SHIFT SUMMARY: PT CONTINUES A&OX4, RESP EVEN AND UNLABORED, HRR. BOTH TR BANDS HAVE BEEN REMOVED, TRANSPARENT DRESSING OVER INSERTION SITE AND FOREARM/WRIST WRAPPED IN [place]. PT TOLERATING WELL. NG TUBE CONTINUES IN PLACED, SET TO LOW INTERMITTENT SUCTION, LOW AMOUNT OF GREEN/BROWN OUTPUT. DR GORDON TO ROOM, HAS PLACED ORDERS FOR POSSIBLE DC OF NG TUBE THIS EVENING IF PT CONTINUES TO DO WELL. PT C/O DISCOMFORT TO THROAT, PRN MEDICATIONS IN PLACE. WILL CONTINUE TO MONITOR AND TREAT ACCORDINGLY UNTIL CHANGE OF SHIFT.
--- NOTE | 2020-08-19 19:00 | NUR ---
UPDATE NG TUBE PULLED BY THIS RN DUE TO LITTLE OUTPUT THROUGHOUT SHIFT AND ORDERS FROM DR. GORDON. PT DENIES ANY NAUSEA OR ABD PAIN. PT REPORTS HE HAD MEDIUM BM.
[2020-08-19 19:03] LABS: CPK Creatine Kinase 82 U/L (39-308)
[2020-08-20 00:17] LABS: BASOPHILS ABSOLUTE AUTO 0.01 K/mm3 (0.00-0.23); BASOPHILS PERCENT AUTO 0 % (0-2); EOSINOPHILS ABSOLUTE AUTO 0.11 K/mm3 (0.00-0.68); EOSINOPHILS PERCENT AUTO 3 % (0-6); Hematocrit 29.3 % (37.0-53.0); Hemoglobin 9.2 g/dL (13.5-17.5); IMMATURE GRAN ABSOLUTE AUTO 0.01 K/mm3 (0.00-0.10); IMMATURE GRAN PERCENT AUTO 0 % (0-1); LYMPHOCYTES ABSOLUTE AUTO 0.69 K/mm3 (0.84-5.20); LYMPHOCYTES PERCENT AUTO 19 % (21-46); MONOCYTES ABSOLUTE AUTO 0.41 K/mm3 (0.16-1.47); MONOCYTES PERCENT AUTO 11 % (4-13); Mean Corpuscular HGB 27.9 pg (26.0-34.0); Mean Corpuscular HGB Conc 31.4 g/dL (31.5-36.5); Mean Corpuscular Volume 89 fL (80-100); Mean Platelet Volume 10.1 fL (9.1-12.4); NEUTROPHILS ABSOLUTE AUTO 2.37 K/mm3 (1.96-9.15); NEUTROPHILS PERCENT AUTO 66 % (41-73); Platelet Count 99 K/mm3 (150-400); RDW Coefficient Variation 15.8 % (11.7-14.2); RDW Standard Deviation 51.1 fL (35.1-46.3)
[2020-08-20 00:36] LABS: Alanine Aminotransfer (ALT/SGP 20 U/L (12-78); Albumin, Blood 2.7 g/dL (3.4-5.0); Alk Phos 74 U/L (50-136); Anion Gap 5 mmol/L (6-16); Aspartate Aminotrans (AST/SGOT 15 U/L (12-37); Bilirubin, Total 0.8 mg/dL (0.1-1.0); Blood Urea Nitrogen 12 mg/dL (8-24); Bun/Creatinine Ratio 18.6 (12.0-20.0); CO2, Blood 27 mmol/L (21-32); Calcium, Blood 8.1 mg/dL (8.5-10.1); Chloride, Blood 110 mmol/L (98-108); Creatinine, Blood 0.64 mg/dL (0.60-1.20); Glomerular Filtration Rate >60 (60-); Glucose, Blood 97 mg/dL (70-99); Magnesium, Blood 1.8 mg/dL (1.6-2.4); Phosphorus, Blood 2.6 mg/dL (2.5-4.9); Potassium, Blood 3.6 mmol/L (3.5-5.5); Sodium, Blood 142 mmol/L (136-145)
[2020-08-20 00:51] LABS: Albumin/Globulin Ratio 0.8 (0.8-1.8); Globulin, Blood 3.5 g/dL (2.2-4.0); Total Protein, Blood 6.2 g/dL (6.4-8.2)
--- NOTE | 2020-08-20 04:43 | NUR ---
SHIFT SUMMARY NO ACUTE CHANGES THIS SHIFT. VSS. AXO. ON RA. IN SR, SLIGHT HOTN. TR BAND TO RIGHT WRIST STABLE WITH ARMBOARD ON. PT VOIDING. R FOOT DRESSING REMAINS CDI. PT DENYING CP T/O SHIFT. HAD BM AT BEGINNING OF SHIFT WITH PASSING OF FLATUS LTER IN SHIFT. PT REMIANS NPO. PT STATES PAIN TO ABD, EVEN WITH PALP, HAS RECEDED. LR INFUSING PER EMAR. WILL CONTINUE TO MONITOR UNTIL SHIFT CHANGE.
--- NOTE | 2020-08-20 09:28 | NUR ---
PT ALERT AND ORIENTED X4. ON ROOM AIR SATING ABOVE 93%. TELE SHOWING SINUS WITH HR 70-80'S. DENIES CHEST PAIN/PRESSURE THIS AM. NITRO PATCH TAKEN OFF AND SKIN WIPED CLEAN DUE TO BP 96/60. VITAL SIGNS STABLE WITH SOFT BP. SKIN C/D/I. RIGHT RADIAL SIGHT SCANT DRAINAGE UNDER DRESSING. NO SIGNS OF ACTIVE BLEEDING OR HEMATOMA, ARM BOARD IN PLACE AND EDUCATION PROVIDED ON POST ANGIO CARE. RIGHT DIABETIC FOOT WOUND DRESSING INTACT. LR INFUSING AT 125 ML/HR. PT UP TO BATHROOM FEELING "STEADY" ON HIS FEET. WILL CONTINUE TO MONITOR.
[2020-08-20] MEDS ORDERED: ASPI325 PO (10:48)
[2020-08-20] MEDS ORDERED: BENMENLOZ MT (10:50)
[2020-08-20] MEDS ORDERED: AZO CRANBERRY PO (10:53)
[2020-08-20] MEDS ORDERED: ONDA4ODT MM (10:54)
[2020-08-20] MEDS ORDERED: NITR.4SL SL (10:54)
[2020-08-20] MEDS ORDERED: DILT180 PO (10:56)
--- NOTE | 2020-08-20 11:52 | NUR ---
DISCHARGE: NO ACUTE CHANGES FROM THIS AM. RIGHT DIABETIC ULCER WOUND DRESSING CHANGED PER WOUND CARE ORDERS. PT ABLE TO HAVE BM. DR. ESPINOSATRATE IN TO SEE PT. DISCHARGE ORDERS. DISCHARGE INSTRUCTIONS REVIEWED, QUESTIONS ANSWERED. POST ANGIO CARE EDUCATION PROVIDED. IV REMOVED PER PROTOCOL. PT TAKEN OUT TO CAR VIA WHEELCHAIR.
== END 2020-08-20 11:53 | disposition home or self-care (01) | DRG 287 ==
LOC: ER 04:43 → ICUW 06:14 → PCU 06:14
PROVIDERS: Emergency Medicine; ADMIT Family Medicine
PROC: B2111ZZ Fluoroscopy of Multiple Coronary Arteries using Low Osmolar Contrast (ICD-10-PCS; principal; 2020-08-19)
PROC: 4A023N7 Measurement of Cardiac Sampling and Pressure, Left Heart, Percutaneous Approach (ICD-10-PCS; 2020-08-19)
DX: I25.111 Atherosclerotic heart disease of native coronary artery with angina pectoris with documented spasm (principal); K56.609 Unspecified intestinal obstruction, unspecified as to partial versus complete obstruction; E11.621 Type 2 diabetes mellitus with foot ulcer; L97.519 Non-pressure chronic ulcer of other part of right foot with unspecified severity; D53.9 Nutritional anemia, unspecified; D69.6 Thrombocytopenia, unspecified; Z68.31 Body mass index [BMI] 31.0-31.9, adult; E66.9 Obesity, unspecified; J44.9 Chronic obstructive pulmonary disease, unspecified; M54.9 Dorsalgia, unspecified; G89.29 Other chronic pain; M79.7 Fibromyalgia; Z79.4 Long term (current) use of insulin; Z79.82 Long term (current) use of aspirin; Z79.899 Other long term (current) drug therapy; Z86.718 Personal history of other venous thrombosis and embolism; Z88.0 Allergy status to penicillin; Z88.8 Allergy status to other drugs, medicaments and biological substances; Z87.891 Personal history of nicotine dependence; Z98.890 Other specified postprocedural states
CPT/HCPCS: 36415; 74176; 76937; 80053; 82550; 82947; 83690; 83735; 84100; 84484; 85025; 86850; 86900; 86901; 93005; 93010; 93458; 96374; 96375; 99285-25; A9270; C1769; C1894; G0480; J1170; J1644; J1815; J2250; J2405; J3010; J7030; J7050; J7120; Q9967

== ENCOUNTER 2020-08-26 00:27 | Day surgery (SDC) | payer OTHER ==
[~2020-08-26 00:27] MED LIST changes: +ASPI325 PO; +AZO CRANBERRY PO; +BENMENLOZ MT; +DILT180 PO; +NITR.4SL SL; +ONDA4ODT MM
== END 2020-08-26 22:57 | disposition home or self-care (01) ==
LOC: WOUND 00:27
DX: E11.621 Type 2 diabetes mellitus with foot ulcer (principal); L97.512 Non-pressure chronic ulcer of other part of right foot with fat layer exposed; E11.21 Type 2 diabetes mellitus with diabetic nephropathy
CPT/HCPCS: G0463

== ENCOUNTER 2020-09-02 00:46 | Day surgery (SDC) | payer OTHER ==
[~2020-09-02 00:46] MED LIST changes: +CLOP75 PO; +LIPITOR80 MG PO; +LOSA25 PO
== END 2020-09-02 22:53 | disposition home or self-care (01) ==
LOC: WOUND 00:46
DX: E11.621 Type 2 diabetes mellitus with foot ulcer (principal); L97.415 Non-pressure chronic ulcer of right heel and midfoot with muscle involvement without evidence of necrosis; E11.21 Type 2 diabetes mellitus with diabetic nephropathy; J44.9 Chronic obstructive pulmonary disease, unspecified; M79.7 Fibromyalgia; Z85.6 Personal history of leukemia; Z86.718 Personal history of other venous thrombosis and embolism

== ENCOUNTER 2020-09-09 00:24 | Day surgery (SDC) | payer OTHER | END 2020-09-09 22:57 | disposition home or self-care (01) | LOC: WOUND 00:24 | DX: E11.621 Type 2 diabetes mellitus with foot ulcer (principal); L97.415 Non-pressure chronic ulcer of right heel and midfoot with muscle involvement without evidence of necrosis; E11.21 Type 2 diabetes mellitus with diabetic nephropathy; M06.9 Rheumatoid arthritis, unspecified; M79.7 Fibromyalgia; J44.9 Chronic obstructive pulmonary disease, unspecified; F32.9 Major depressive disorder, single episode, unspecified; Z85.6 Personal history of leukemia; Z86.718 Personal history of other venous thrombosis and embolism ==

== ENCOUNTER 2020-09-11 09:09 | Emergency (ER) | payer OTHER ==
[~2020-09-11] VITALS: Ht 190.5 cm; Wt 108.9 kg
[2020-09-11 09:22] LABS: BASOPHILS ABSOLUTE AUTO 0.02 K/mm3 (0.00-0.23); BASOPHILS PERCENT AUTO 1 % (0-2); EOSINOPHILS ABSOLUTE AUTO 0.12 K/mm3 (0.00-0.68); EOSINOPHILS PERCENT AUTO 3 % (0-6); Hematocrit 31.9 % (37.0-53.0); Hemoglobin 10.3 g/dL (13.5-17.5); IMMATURE GRAN ABSOLUTE AUTO 0.01 K/mm3 (0.00-0.10); IMMATURE GRAN PERCENT AUTO 0 % (0-1); LYMPHOCYTES ABSOLUTE AUTO 0.74 K/mm3 (0.84-5.20); LYMPHOCYTES PERCENT AUTO 20 % (21-46); MONOCYTES PERCENT AUTO 11 % (4-13); Mean Corpuscular HGB 28.4 pg (26.0-34.0); Mean Corpuscular HGB Conc 32.3 g/dL (31.5-36.5); Mean Corpuscular Volume 88 fL (80-100); Mean Platelet Volume 10.8 fL (9.1-12.4); NEUTROPHILS ABSOLUTE AUTO 2.43 K/mm3 (1.96-9.15); NEUTROPHILS PERCENT AUTO 65 % (41-73); Platelet Count 102 K/mm3 (150-400); RDW Coefficient Variation 15.9 % (11.7-14.2); RDW Standard Deviation 50.8 fL (35.1-46.3); Red Blood Cell Count 3.63 M/mm3 (4.30-5.90); White Blood Cell Count 3.72 K/mm3 (4.00-11.30)
[2020-09-11 09:47] LABS: Alanine Aminotransfer (ALT/SGP 27 U/L (12-78); Albumin, Blood 3.3 g/dL (3.4-5.0); Albumin/Globulin Ratio 0.8 (0.8-1.8); Alk Phos 95 U/L (50-136); Anion Gap 6 mmol/L (6-16); Aspartate Aminotrans (AST/SGOT 21 U/L (12-37); Bilirubin, Total 0.9 mg/dL (0.1-1.0); Blood Urea Nitrogen 11 mg/dL (8-24); Bun/Creatinine Ratio 16.2 (12.0-20.0); CO2, Blood 27 mmol/L (21-32); Calcium, Blood 8.6 mg/dL (8.5-10.1); Chloride, Blood 106 mmol/L (98-108); Creatinine, Blood 0.68 mg/dL (0.60-1.20); Globulin, Blood 4.4 g/dL (2.2-4.0); Glomerular Filtration Rate >60 (60-); Glucose, Blood 212 mg/dL (70-99); Potassium, Blood 3.7 mmol/L (3.5-5.5); Sodium, Blood 139 mmol/L (136-145); Total Protein, Blood 7.7 g/dL (6.4-8.2); Troponin I <0.015 ng/mL (0.000-0.040)
== END 2020-09-11 14:12 | disposition home or self-care (01) ==
LOC: ER 09:09
PROVIDERS: Emergency Medicine
DX: R07.9 Chest pain, unspecified (principal); E11.9 Type 2 diabetes mellitus without complications; J44.9 Chronic obstructive pulmonary disease, unspecified; Z79.4 Long term (current) use of insulin; Z79.899 Other long term (current) drug therapy; Z88.0 Allergy status to penicillin
CPT/HCPCS: 71045; 71275; 74175; 80053; 84484; 85025; 93005; 93010; 99285-25; A9270; Q9967

== ENCOUNTER 2020-09-16 00:12 | Day surgery (SDC) | payer OTHER | END 2020-09-16 23:11 | disposition home or self-care (01) | LOC: WOUND 00:12 | DX: E11.621 Type 2 diabetes mellitus with foot ulcer (principal); L97.415 Non-pressure chronic ulcer of right heel and midfoot with muscle involvement without evidence of necrosis; L97.512 Non-pressure chronic ulcer of other part of right foot with fat layer exposed; E11.21 Type 2 diabetes mellitus with diabetic nephropathy; J44.9 Chronic obstructive pulmonary disease, unspecified; Z86.718 Personal history of other venous thrombosis and embolism; M06.9 Rheumatoid arthritis, unspecified; M79.7 Fibromyalgia | CPT/HCPCS: G0463 ==

== ENCOUNTER 2020-09-30 00:04 | Day surgery (SDC) | payer OTHER ==
[~2020-09-30 00:04] MED LIST changes: -CLOP75 PO; -LIPITOR80 MG PO; -LOSA25 PO
== END 2020-09-30 23:03 | disposition home or self-care (01) ==
LOC: WOUND 00:04
DX: E11.621 Type 2 diabetes mellitus with foot ulcer (principal); L97.515 Non-pressure chronic ulcer of other part of right foot with muscle involvement without evidence of necrosis; E11.21 Type 2 diabetes mellitus with diabetic nephropathy; J44.9 Chronic obstructive pulmonary disease, unspecified; Z86.718 Personal history of other venous thrombosis and embolism; M06.9 Rheumatoid arthritis, unspecified
CPT/HCPCS: 87071; 87075; 87077; 87147; 87186; 87205; A9270

== ENCOUNTER → 2020-10-06 | Outpatient (CLI) | payer OTHER ==
[~2020-10-06] MED LIST changes: +Aspir 8181 MG PO; +CEPH500 PO; +CLOP75 PO; +CYAN500 PO; +DILTIAZEM 24HR180 M3 PO; +FEROSUL325 M1 PO; +FURO20 PO; +INSULANI SC; +LIPITOR80 MG PO; +LOSA25 PO; +MAGNESIUM PO; +Nadolol40 MG PO; +PROBIOTIC1 EA13 PO; +SPIR25 PO; +TRAZ100 PO
[2020-10-06 17:39] LABS: Hematocrit 33.1 % (37.0-53.0); Hemoglobin 10.3 g/dL (13.5-17.5); Mean Corpuscular HGB 27.4 pg (26.0-34.0); Mean Corpuscular HGB Conc 31.1 g/dL (31.5-36.5); Mean Corpuscular Volume 88 fL (80-100); Mean Platelet Volume 11.3 fL (9.1-12.4); Platelet Count 99 K/mm3 (150-400); RDW Coefficient Variation 16.2 % (11.7-14.2); RDW Standard Deviation 52.4 fL (35.1-46.3); Red Blood Cell Count 3.76 M/mm3 (4.30-5.90); White Blood Cell Count 2.63 K/mm3 (4.00-11.30)
[2020-10-06 17:52] LABS: Alanine Aminotransfer (ALT/SGP 41 U/L (12-78); Albumin, Blood 3.4 g/dL (3.4-5.0); Albumin/Globulin Ratio 0.7 (0.8-1.8); Alk Phos 116 U/L (50-136); Anion Gap 5 mmol/L (6-16); Aspartate Aminotrans (AST/SGOT 32 U/L (12-37); Bilirubin, Total 0.5 mg/dL (0.1-1.0); Blood Urea Nitrogen 13 mg/dL (8-24); Bun/Creatinine Ratio 18.5 (12.0-20.0); CO2, Blood 27 mmol/L (21-32); Calcium, Blood 9.1 mg/dL (8.5-10.1); Chloride, Blood 107 mmol/L (98-108); Ferritin, Serum 8 ng/mL (26-388); Globulin, Blood 4.7 g/dL (2.2-4.0); Glomerular Filtration Rate >60 (60-); Glucose, Blood 202 mg/dL (70-99); Iron Serum 33 ug/dL (65-175); Percent Saturation 8.9 % (20.0-50.0); Phosphorus, Blood 2.5 mg/dL (2.5-4.9); Potassium, Blood 3.7 mmol/L (3.5-5.5); Sodium, Blood 139 mmol/L (136-145); Thyroxine (T4) 10.6 ug/dL (4.5-12.1); Total Iron Binding Capacity 371 ug/dL (250-450); Total Protein, Blood 8.1 g/dL (6.4-8.2)
[2020-10-06 18:06] LABS: BASOPHILS ABSOLUTE MAN 0.02 K/mm3 (0.00-0.23); BASOPHILS PERCENT MAN 1 % (0-2); EOSINOPHILS ABSOLUTE MAN 0.05 K/mm3 (0.00-0.68); EOSINOPHILS PERCENT MAN 2 % (0-6); LYMPHOCYTES ABSOLUTE MAN 0.73 K/mm3 (0.84-5.20); LYMPHOCYTES PERCENT MAN 28 % (21-46); MONOCYTES ABSOLUTE MAN 0.26 K/mm3 (0.16-1.47); MONOCYTES PERCENT MAN 10 % (4-13); NEUTROPHILS ABSOLUTE MAN 1.55 K/mm3 (1.96-9.15); SEG NEUTROPHILS PERCENT MAN 59 % (41-73); TOTAL CELLS COUNTED 100
== END | disposition home or self-care (01) ==
LOC: LAB SHORT 16:20 → LAB 16:20
PROVIDERS: Nurse Practitioner
DX: D64.9 Anemia, unspecified (principal)
CPT/HCPCS: 80053; 82728; 83540; 83550; 83880; 84100; 84436; 84443; 85007; 85027

== ENCOUNTER 2020-10-07 00:10 | Day surgery (SDC) | payer OTHER, SELFPAY ==
[~2020-10-07 00:10] MED LIST changes: -Aspir 8181 MG PO; -CEPH500 PO; -CLOP75 PO; -CYAN500 PO; -DILTIAZEM 24HR180 M3 PO; -FEROSUL325 M1 PO; -FURO20 PO; -INSULANI SC; -LIPITOR80 MG PO; -LOSA25 PO; -MAGNESIUM PO; -Nadolol40 MG PO; -PROBIOTIC1 EA13 PO; -SPIR25 PO; -TRAZ100 PO
== END 2020-10-07 22:54 | disposition home or self-care (01) ==
LOC: WOUND 00:10
DX: E11.621 Type 2 diabetes mellitus with foot ulcer (principal); L97.415 Non-pressure chronic ulcer of right heel and midfoot with muscle involvement without evidence of necrosis; L97.512 Non-pressure chronic ulcer of other part of right foot with fat layer exposed; E11.21 Type 2 diabetes mellitus with diabetic nephropathy; J44.9 Chronic obstructive pulmonary disease, unspecified; M06.9 Rheumatoid arthritis, unspecified; M79.7 Fibromyalgia; Z86.718 Personal history of other venous thrombosis and embolism
CPT/HCPCS: 73630

== ENCOUNTER 2020-10-14 00:10 | Day surgery (SDC) | payer OTHER, SELFPAY | END 2020-10-14 23:02 | disposition home or self-care (01) | LOC: WOUND 00:10 | DX: E11.621 Type 2 diabetes mellitus with foot ulcer (principal); L97.415 Non-pressure chronic ulcer of right heel and midfoot with muscle involvement without evidence of necrosis; E11.21 Type 2 diabetes mellitus with diabetic nephropathy; R93.89 Abnormal findings on diagnostic imaging of other specified body structures; M06.9 Rheumatoid arthritis, unspecified; M79.7 Fibromyalgia; J44.9 Chronic obstructive pulmonary disease, unspecified; F32.9 Major depressive disorder, single episode, unspecified; Z86.718 Personal history of other venous thrombosis and embolism | CPT/HCPCS: A9270 ==

== ENCOUNTER 2020-10-22 04:46 | Day surgery (SDC) | payer OTHER, SELFPAY | END 2020-10-22 23:44 | disposition home or self-care (01) | LOC: WOUND 04:46 | DX: E11.621 Type 2 diabetes mellitus with foot ulcer (principal); L97.415 Non-pressure chronic ulcer of right heel and midfoot with muscle involvement without evidence of necrosis; L97.512 Non-pressure chronic ulcer of other part of right foot with fat layer exposed; E11.21 Type 2 diabetes mellitus with diabetic nephropathy; R93.89 Abnormal findings on diagnostic imaging of other specified body structures; J44.9 Chronic obstructive pulmonary disease, unspecified; M06.9 Rheumatoid arthritis, unspecified; M79.7 Fibromyalgia; Z86.718 Personal history of other venous thrombosis and embolism; Z88.0 Allergy status to penicillin; Z79.82 Long term (current) use of aspirin; Z79.02 Long term (current) use of antithrombotics/antiplatelets; Z79.4 Long term (current) use of insulin; Z79.899 Other long term (current) drug therapy ==

== ENCOUNTER 2020-10-28 00:34 | Day surgery (SDC) | payer OTHER, SELFPAY ==
[2020-10-28] MEDS ORDERED: FURO20 PO (11:22)
[2020-10-28] MEDS ORDERED: CYAN500 PO (11:23)
[2020-10-28] MEDS ORDERED: SPIR25 PO (11:23)
[2020-10-28] MEDS ORDERED: MAGNESIUM PO (11:24)
[2020-10-28] MEDS ORDERED: PROBIOTIC1 EA13 PO (11:24)
== END 2020-10-28 23:02 | disposition home or self-care (01) ==
LOC: WOUND 00:34
DX: E11.621 Type 2 diabetes mellitus with foot ulcer (principal); L97.512 Non-pressure chronic ulcer of other part of right foot with fat layer exposed; E11.21 Type 2 diabetes mellitus with diabetic nephropathy; R93.89 Abnormal findings on diagnostic imaging of other specified body structures; M06.9 Rheumatoid arthritis, unspecified; J44.9 Chronic obstructive pulmonary disease, unspecified; Z86.718 Personal history of other venous thrombosis and embolism

== ENCOUNTER 2020-11-04 00:23 | Day surgery (SDC) | payer OTHER ==
[~2020-11-04 00:23] MED LIST changes: +CYAN500 PO; +FURO20 PO; +MAGNESIUM PO; +PROBIOTIC1 EA13 PO; +SPIR25 PO
== END 2020-11-04 23:19 | disposition home or self-care (01) ==
LOC: WOUND 00:23
DX: E11.621 Type 2 diabetes mellitus with foot ulcer (principal); L97.415 Non-pressure chronic ulcer of right heel and midfoot with muscle involvement without evidence of necrosis; E11.21 Type 2 diabetes mellitus with diabetic nephropathy; J44.9 Chronic obstructive pulmonary disease, unspecified; Z86.718 Personal history of other venous thrombosis and embolism; R93.89 Abnormal findings on diagnostic imaging of other specified body structures

== ENCOUNTER 2020-11-05 06:49 | Day surgery (SDC) | payer OTHER, SELFPAY ==
[~2020-11-05] VITALS: Ht 190.5 cm; Wt 109.3 kg
--- NOTE | 2020-11-05 08:29 | NUR ---
11/05/20 0829 Rick Hall History, Chart, Medications and Allergies reviewed before start of procedure.MONITOR INTACT WITH CONTINUOUS PULSE OXIMETRY AND INTERMITTENT BP.3-LEAD EKG REVIEWED WITH PHYSICIAN PRIOR TO START OF PROCEDURE.O2 VIA N/C INTACT THROUGHOUT SEDATION/PROCEDURE. See Anesthesia record.
--- NOTE | 2020-11-05 10:26 | NUR ---
Patient up to Ambulate independently. Gait steady. Discharge instructions reviewed with patient. Patient verbalizes understanding. Copy given to patient to take home. Discharged via wheelchair to private car for ride home.
== END 2020-11-06 22:57 | disposition home or self-care (01) ==
LOC: ORSCMMR 06:49 → ORD 10:30 → ORSCMMR 10:30
PROVIDERS: Internal Medicine Gastroenterology
PROC: 0DB78ZX Excision of Stomach, Pylorus, Via Natural or Artificial Opening Endoscopic, Diagnostic (ICD-10-PCS; principal; 2020-11-05 07:30)
PROC: 0DBH8ZX Excision of Cecum, Via Natural or Artificial Opening Endoscopic, Diagnostic (ICD-10-PCS; principal; 2020-11-05 07:30)
PROC: 0DB98ZX Excision of Duodenum, Via Natural or Artificial Opening Endoscopic, Diagnostic (ICD-10-PCS; principal; 2020-11-05 07:30)
DX: K62.5 Hemorrhage of anus and rectum (principal); D46.4 Refractory anemia, unspecified; K74.60 Unspecified cirrhosis of liver; K76.6 Portal hypertension; K29.70 Gastritis, unspecified, without bleeding; K31.89 Other diseases of stomach and duodenum; I85.00 Esophageal varices without bleeding; D12.0 Benign neoplasm of cecum; K57.30 Diverticulosis of large intestine without perforation or abscess without bleeding; I10 Essential (primary) hypertension; I25.10 Atherosclerotic heart disease of native coronary artery without angina pectoris; E11.9 Type 2 diabetes mellitus without complications; M79.7 Fibromyalgia; I25.2 Old myocardial infarction; Z79.899 Other long term (current) drug therapy; Z79.82 Long term (current) use of aspirin; Z79.84 Long term (current) use of oral hypoglycemic drugs
CPT/HCPCS: 82947; 88305; J2370; J2704; J3010; J7120

== ENCOUNTER 2020-11-11 00:36 | Day surgery (SDC) | payer OTHER | END 2020-11-12 02:58 | disposition home or self-care (01) | LOC: WOUND 00:36 | DX: E11.621 Type 2 diabetes mellitus with foot ulcer (principal); L97.512 Non-pressure chronic ulcer of other part of right foot with fat layer exposed; E11.21 Type 2 diabetes mellitus with diabetic nephropathy; R93.89 Abnormal findings on diagnostic imaging of other specified body structures ==

== ENCOUNTER 2020-11-18 00:31 | Day surgery (SDC) | payer OTHER | END 2020-11-18 23:39 | disposition home or self-care (01) | LOC: WOUND 00:31 | DX: E11.621 Type 2 diabetes mellitus with foot ulcer (principal); L97.512 Non-pressure chronic ulcer of other part of right foot with fat layer exposed; E11.21 Type 2 diabetes mellitus with diabetic nephropathy; R93.89 Abnormal findings on diagnostic imaging of other specified body structures; Z88.0 Allergy status to penicillin; Z91.048 Other nonmedicinal substance allergy status; J44.9 Chronic obstructive pulmonary disease, unspecified | CPT/HCPCS: 87071; 87075; 87077; 87147; 87186; 87205; A9270 ==

== ENCOUNTER 2020-11-26 04:15 | Day surgery (SDC) | payer OTHER | END 2020-11-26 22:57 | disposition home or self-care (01) | LOC: WOUND 04:15 | DX: E11.621 Type 2 diabetes mellitus with foot ulcer (principal); L97.415 Non-pressure chronic ulcer of right heel and midfoot with muscle involvement without evidence of necrosis; L97.512 Non-pressure chronic ulcer of other part of right foot with fat layer exposed; E11.21 Type 2 diabetes mellitus with diabetic nephropathy; R93.89 Abnormal findings on diagnostic imaging of other specified body structures ==

== ENCOUNTER 2020-12-09 01:00 | Day surgery (SDC) | payer OTHER | END 2020-12-09 23:02 | disposition home or self-care (01) | LOC: WOUND 01:00 | DX: E11.621 Type 2 diabetes mellitus with foot ulcer (principal); L97.415 Non-pressure chronic ulcer of right heel and midfoot with muscle involvement without evidence of necrosis; E11.21 Type 2 diabetes mellitus with diabetic nephropathy; R93.89 Abnormal findings on diagnostic imaging of other specified body structures; M06.9 Rheumatoid arthritis, unspecified; M79.7 Fibromyalgia; J44.9 Chronic obstructive pulmonary disease, unspecified; Z86.718 Personal history of other venous thrombosis and embolism; Z88.0 Allergy status to penicillin; Z91.048 Other nonmedicinal substance allergy status ==

== ENCOUNTER 2020-12-11 08:23 | Inpatient (IN) | payer OTHER, MEDICARE ==
[~2020-12-11] VITALS: Ht 190.5 cm; Wt 105.7 kg
--- NOTE | 2020-12-11 11:00 | NUR ---
PT REQUESTING TO GET UP AND MOVE AROUND, UNCOMFORTABLE LAYING IN BED. UP TO BATHROOM WITH SBA; TOLERATED WELL. PUNCTURE SIDE D&I.
--- NOTE | 2020-12-11 11:08 | NUR ---
CALLED TO DR PERES REGARDING PT'S STATUS. DR. PERES WILL COME TO SEE PT. PT DANGLING AT BEDSIDE. CONTINUE TO MONITOR AND TX PER ORDERS.
--- NOTE | 2020-12-11 11:12 | NUR ---
PT'S LUNGS CLEAR, SATS 100% RA.
--- NOTE | 2020-12-11 11:20 | NUR ---
NEW ORDERS PER DR PERES TO GIVEN TYLENOL 1,000MG PO NOW. THEN RE-EVALUATE IN 30 MINS.
--- NOTE | 2020-12-11 11:49 | NUR ---
PT BECAME UNRESPONSIVE DANGLING AT BEDSIDE STARRING OUT INTO SPACE. NO RESPONSE WITH VERBAL OR TACTILE STIMULI. LAID PT DOWN AND CALLED FOR HELP. NOT ABLE TO OBTAIN BP, HR 60'S, DECREASE SATS NOTED. PALE/SCOTT COLOR SKIN. APPLIED. PT'S CONDITION CONTINUED TO DECLINE, HR 40'S AND DECREASE SATS. CODE BLUE CALLED. SEE CODE BLUE SHEET. PT TRANSFER 1CU 10.
[2020-12-11] MEDS ORDERED: CEPH500 PO (12:45)
[2020-12-11] MEDS ORDERED: TRAZ100 PO (12:46)
[2020-12-11] MEDS ORDERED: CLOP75 PO (12:47)
[2020-12-11] MEDS ORDERED: LIPITOR80 MG PO (12:47)
[2020-12-11] MEDS ORDERED: FEROSUL325 M1 PO (12:48)
[2020-12-11] MEDS ORDERED: Nadolol40 MG PO (12:49)
[2020-12-11] MEDS ORDERED: LOSA25 PO (12:49)
[2020-12-11] MEDS ORDERED: INSULANI SC (12:50)
[2020-12-11] MEDS ORDERED: METF500 PO (12:50)
[2020-12-11] MEDS ORDERED: DILTIAZEM 24HR180 M3 PO (12:51)
[2020-12-11] MEDS ORDERED: PREG75 PO (12:51)
[2020-12-11] MEDS ORDERED: Aspir 8181 MG PO (12:52)
[2020-12-11 12:54] LABS: International Normalized Ratio 1.19; Prothrombin Time Results 12.7 Sec (9.7-11.5)
[2020-12-11 12:56] LABS: Alanine Aminotransfer (ALT/SGP 32 U/L (12-78); Albumin, Blood 2.7 g/dL (3.4-5.0); Albumin/Globulin Ratio 0.7 (0.8-1.8); Alk Phos 80 U/L (50-136); Anion Gap 4 mmol/L (6-16); Aspartate Aminotrans (AST/SGOT 22 U/L (12-37); Bilirubin, Total 0.6 mg/dL (0.1-1.0); Blood Urea Nitrogen 19 mg/dL (8-24); CO2, Blood 27 mmol/L (21-32); Calcium, Blood 8.4 mg/dL (8.5-10.1); Chloride, Blood 111 mmol/L (98-108); Creatinine, Blood 0.76 mg/dL (0.60-1.20); Globulin, Blood 3.7 g/dL (2.2-4.0); Glomerular Filtration Rate >60 (60-); Glucose, Blood 197 mg/dL (70-99); Potassium, Blood 4.1 mmol/L (3.5-5.5); Sodium, Blood 142 mmol/L (136-145); Total Protein, Blood 6.4 g/dL (6.4-8.2); Troponin I <0.015 ng/mL (0.000-0.040)
[2020-12-11 12:59] LABS: Magnesium, Blood 1.8 mg/dL (1.6-2.4)
[2020-12-11 13:02] LABS: BASOPHILS ABSOLUTE AUTO 0.03 K/mm3 (0.00-0.23); BASOPHILS PERCENT AUTO 1 % (0-2); EOSINOPHILS ABSOLUTE AUTO 0.25 K/mm3 (0.00-0.68); EOSINOPHILS PERCENT AUTO 4 % (0-6); Hematocrit 28.9 % (37.0-53.0); Hemoglobin 9.1 g/dL (13.5-17.5); IMMATURE GRAN ABSOLUTE AUTO 0.02 K/mm3 (0.00-0.10); IMMATURE GRAN PERCENT AUTO 0 % (0-1); LYMPHOCYTES ABSOLUTE AUTO 1.41 K/mm3 (0.84-5.20); LYMPHOCYTES PERCENT AUTO 25 % (21-46); MONOCYTES ABSOLUTE AUTO 0.49 K/mm3 (0.16-1.47); MONOCYTES PERCENT AUTO 9 % (4-13); Mean Corpuscular HGB 29.4 pg (26.0-34.0); Mean Corpuscular HGB Conc 31.5 g/dL (31.5-36.5); Mean Corpuscular Volume 93 fL (80-100); Mean Platelet Volume 12.4 fL (9.1-12.4); NEUTROPHILS ABSOLUTE AUTO 3.49 K/mm3 (1.96-9.15); NEUTROPHILS PERCENT AUTO 61 % (41-73); Platelet Count 124 K/mm3 (150-400); RDW Coefficient Variation 17.5 % (11.7-14.2); RDW Standard Deviation 59.6 fL (35.1-46.3); White Blood Cell Count 5.69 K/mm3 (4.00-11.30)
[2020-12-11 13:23] LABS: Creatine Kinase MB 2.1 ng/mL (0.0-3.6)
[2020-12-11 15:31] LABS: Hematocrit 27.2 % (37.0-53.0); Hemoglobin 8.7 g/dL (13.5-17.5)
--- NOTE | 2020-12-11 15:49 | NUR ---
PT ARRIVED TO ICU 10 FROM DAY SURGERY AT 1225. PT WAS HERE FOR OUTPT LIVER BIOPSY. PT HAD ZORAN'D DOWN AFTER PROCEDURE AND WAS UNRESPONSIVE IN DAY SURGERY AND A CODE BLUE WAS CALLED. PT IS NOW A/O X4, PT IS PLEASANT, COOPERATIVE AND JOKING WITH STAFF. DENIES CP, PRESSURE, N/V AND SOB. PT HAD EPI GTT RUNNING PERIPHERALLY BUT WAS STOPPED ON ARRIVAL TO ICU. PICC LINE WAS PLACED IN CASE NEEDED FOR PRESSORS. PT STATES HE HAD GONE TO THE BATHROOM IN DAY SURGERY WHEN HE STARTED FEELING ILL. DID NOT HAVE A BM. PT STATES HE LAID BACK DOWN AND BEGAN PASSING OUT. PT STATES HE HAS EPISODES LIKE THIS AT HOME BUT DOES NOT PASS OUT. PT ALSO GETS VERY CHILLED AT THE SAME TIME. PT TAKEN TO CT THIS AFTERNOON. PUNCTURE SITE TO R SIDE FROM LIVER BIOPSY WITH BANDAID INTACT. Barbra BISHOP IS IN TO SEE PT AND HAS BEEN UPDATE ON EVENTS. PT HAS A CHRONIC WOUND TO R FOOT THAT HE GOES TO THE WOUND CLINIC FOR. PT HAS HAD BONES REMOVED FROM FOOT AND STATES HE HAD MRSA AT ONE POINT BUT HAS SINCE TESTED NEGATIVE. PT WEARS SPECIAL BOOT BILAT THAT ARE WITH HIM. PHOTOS TAKEN OF THE WOUND AND RE-DRESSED WOUND CARE CLINIC HAD DONE. NO SIGN OF DISTRESS NOW. CALL LIGHT IN REACH.
--- NOTE | 2020-12-11 18:58 | NUR ---
PT RESTING IN BED. A/O X4. ATE DINNER WITHOUT ISSUE. PT BECAME HYPOTENSIVE THIS EVENING. CALLED DR. BARRERA WHO ORDERED A 1L BOLUS. PT RESPONDED WELL TO BOLUS. DISCUSSED H&H RESULTS WELL. DR. BARRERA SAID TO WATCH NEXT SET AND TO NOTIFY MD IF THERE IS A DROP. PT C/O SHARP PAIN TO R SIDE WITH DEEP INSPIRATION. NO SWELLING AT THE PUNCTURE SITE, NO BRUISING TO BACK OR SIDE, NO DESATTING, PT IS ON RA. NO SIGN OF DISTRESS. CALL LIGHT IN REACH.
--- NOTE | 2020-12-11 19:42 | NUR ---
REPORT RECEIVED CARE ASSUMED. PT AWAKE, FINISHING UP DINNER. C/O SHARP PAIN ON DEEP BREATH RT RIB/CHEST AREA. POST OR SITE RUQ CDI, NO SIGNS OF BLEEDING. IVF INFUSING @ 100 ML/HR. CONTINUE ASSESSMENT AND CARE.
--- NOTE | 2020-12-11 20:00 | NUR ---
NOTIFIED DR. CARRILLO NOTIFIED. PT HAVING PAIN ON INSPIRATION RT CHEST & DECREASED BS RT LOWER LOBE.2003 MD ORDERED STAT CXR. 2019-DONE.
[2020-12-11 21:10] LABS: Hematocrit 24.8 % (37.0-53.0); Hemoglobin 8.1 g/dL (13.5-17.5)
--- NOTE | 2020-12-11 21:23 | NUR ---
MD NOTIFICATION DR. CARRILLO- LOW BP'S AND PVC'S. LABS SENT- 2124 MD AT BEDSIDE.
--- NOTE | 2020-12-11 22:26 | NUR ---
PT CONTINUES TO HAVE LOW PRESSURES POST BOLUS NS. LEVOFED ORDER- CALLED PHARM FOR MED TO BE SENT. TUBE TRAILER FILLER AWARE.
--- NOTE | 2020-12-12 00:44 | NUR ---
ASSESS PT SLEEPING, WAKES TO VOICE, ALEART/FOLLOWS. PT TURN SELF TO RT SIDE-PILLOW SUPPORT USED TO ASSIST COMFORT. OFFERED PM CARE-PT REFUSED. PT ON LEVO 10 MCG/MIN. IVF @ 100ML/HR FOR ONGOING LOW BP'S-SEE PRINTED VITAL FLOWSHHET IN CHART. CURRENTLY PAIN WELL CONTROLED AT A LEVEL OF 2 REPORTED BY P-RT UPPER QUAD. BIOPSY SITE RUQ WITH BANDAID-C/D/I. NO BRUISING, NO SWELLING NOTED. ABD REMAINS SOFT WITH NORMAL ACTIVE BT. BS REMAINS UNCHANGED: CLEAR BILAT UPPER, DECREASED RT LOWER LOBE. CONTINUE ASSESSMENT AND CARE.
[2020-12-12 04:20] LABS: Hematocrit 22.5 % (37.0-53.0); Hemoglobin 7.4 g/dL (13.5-17.5); Mean Corpuscular HGB 30.3 pg (26.0-34.0); Mean Corpuscular HGB Conc 32.9 g/dL (31.5-36.5); Mean Corpuscular Volume 92 fL (80-100); Platelet Count 112 K/mm3 (150-400); RDW Coefficient Variation 17.4 % (11.7-14.2); RDW Standard Deviation 58.2 fL (35.1-46.3); Red Blood Cell Count 2.44 M/mm3 (4.30-5.90); White Blood Cell Count 7.42 K/mm3 (4.00-11.30)
--- NOTE | 2020-12-12 04:30 | NUR ---
ASSESS LABS SENT PT ON 10 MCG/MIN LEVO, NS INFUSING @ 100 ML/HR. PT A&O, WATCHING TV. PAIN REPORTED 2 OUT OF 10, RUQ. RT FOOT WOUND BANDAGE CHANGED. POST BIOPSY SITE REMIANS C/D/I, NO S&S OF BLEEDING. CONTINUE ASSESSMENT AND CARE.
[2020-12-12 04:53] LABS: Alanine Aminotransfer (ALT/SGP 24 U/L (12-78); Albumin, Blood 2.5 g/dL (3.4-5.0); Albumin/Globulin Ratio 0.8 (0.8-1.8); Alk Phos 64 U/L (50-136); Anion Gap 6 mmol/L (6-16); Aspartate Aminotrans (AST/SGOT 18 U/L (12-37); Bilirubin, Total 0.7 mg/dL (0.1-1.0); Blood Urea Nitrogen 14 mg/dL (8-24); Bun/Creatinine Ratio 24.8 (12.0-20.0); CO2, Blood 23 mmol/L (21-32); Chloride, Blood 112 mmol/L (98-108); Creatinine, Blood 0.56 mg/dL (0.60-1.20); Globulin, Blood 3.1 g/dL (2.2-4.0); Glomerular Filtration Rate >60 (60-); Glucose, Blood 249 mg/dL (70-99); Potassium, Blood 3.2 mmol/L (3.5-5.5); Sodium, Blood 141 mmol/L (136-145); Total Protein, Blood 5.6 g/dL (6.4-8.2)
--- NOTE | 2020-12-12 06:14 | NUR ---
END OF SHIFT K 3.2-REPORTED TO MD-40 KCL IV STARTED. LEVO AT 10 MCG/MIN. NS @ TKO. PT REMAINS A&O, WATCHING TV, PAIN 2 OUT OF 10 RUQ. BS UNCHANGED. CONTINUE ASSESSMENT AND CARE.
--- NOTE | 2020-12-12 08:00 | NUR ---
INITIAL ASSESSMENT PATIENT ALERT AND ORIENTED X 4. PATIENT CALM, COOPERATIVE, AND PLEASANT. PATIENT HAS A TEMP OF 99.5 DEGREES FAHRENHEIT THIS AM. PATIENT STATES HE HAS 2/10 PAIN "ALL OVER". PATIENT STATES THAT PAIN STARTED AFTER LIVER BIOPSY PROCEDURE YESTERDAY. PATIENT STATES THAT THEY WARNED HIM HE WOULD BE IN PAIN AFTERWARD. PATIENT DENIES NEED FOR PRN TYLENOL AT THIS TIME. R FOOT DEFORMITY NOTED. PATIENT STATES HE USES BOOT FOR THE R FOOT AND AMBULATES WITHOUT DIFFICULTY OR NEED OF ASSISTANCE DEVICES. PATIENT SATTING 90% AND GREATER ON RA. LUNGS CLEAR IN UPPER LOBES AND DIMINISHED IN LOWER LOBES. PATIENT STATES THAT HE HAS OCCASIONAL, DRY COUGH. PATIENT IN SR, HR 70S TO 90S. SBP 1-TEENS TO 120S. LEVOPHED AT 6 MCG/ MINUTE. SCDS IN PLACE. PATIENT STATES HIS LAST BM WAS AROUND 4 DAYS AGO. PATIENT STATES HE TAKES STOOL SOFTENERS AT HOME. PATIENT ON CARDIAC DIET. PATIENT STATES WNL. BANDAID TO R UPPER QUADRANT FROM LIVER BIOPSY SITE. WOUND TO R PLANTAR AREA. DRESSING C/D/I. NS INFUSING TKO. PATIENT RECEIVING 40 MEQ KCL FOR POTASSIUM OF 3.2 THIS AM. BED LOW, CALL LIGHT IN REACH. WILL CONTINUE TO MONITOR PATIENT FREQUENTLY THROUGHOUT SHIFT.
--- NOTE | 2020-12-12 08:38 | NUR ---
DR. BARRERA UPDATED ON PATIENT. INFORMED THAT PATIENT HAS TEMP OF 99.5 DEGREES FAHRENHEIT. INFORMED OF AM AMMONIA OF 93, HEMOGLOBIN OF 7.4. INFORMED OF POTASSIUM OF 3.2 AND THAT PATIENT RECEIVING 40 MEQ KCL. INFORMED THAT LEVOPHED CURRENTLY AT 8 MCG/ MINUTE. INFORMED THAT PATIENT HAS BEEN KEPT BEDREST PER HYPOTENSION. DR. BARRERA OKAY'D FOR PATIENT TO GO TO [facility] WITH STAFF ASSISTANCE. INFORMED THAT RADIOLOGIST FROM YESTERDAY'S PROCEDURE STOPPED BY AND WAS ASKED ABOUT PLAVIX AND ASA ORDERED TO BE GIVEN THIS AM. RADIOLOGIST LARISA STATED THAT THE PATIENT HAD SOME BLEEDING DURING PROCEDURE YESTERDAY AND THAT HE RECOMMENDS NOT GIVING PLAVIX OR ASA FOR A FEW DAYS. INFORMED THAT PATIENT HAS NOT HAD BM FOR 4 DAYS PER PATIENT REPORT AND THAT HE TAKES STOOL SOFTENERS AT HOME. ORDERS RECEIVED.
--- NOTE | 2020-12-12 12:00 | NUR ---
PATIENT HAS TEMP 99.1 DEGREES FAHRENHEIT. PATIENT REMAINS SATTING 90% AND GREATER ON RA. HR 70S TO 80S. SBP 90S TO 120S. LEVOPHED INFUSING AT 4 MCG/ MINUTE. BLOOD SUGAR OF 227; COVERAGE GIVEN. NO OTHER ACUTE CHANGES TO NOTE ON AT THIS TIME. WILL CONTINUE TO MONITOR.
[2020-12-12 13:35] LABS: Hematocrit 24.2 % (37.0-53.0); Hemoglobin 7.8 g/dL (13.5-17.5)
--- NOTE | 2020-12-12 17:05 | NUR ---
PATIENT HAS TEMP OF 99.1 DEGREES FAHRENHEIT. HR IN THE 70S. SBP LOW 100S TO 120S. LEVOPHED ON SB. BLOOD SUGAR OF 156; COVERAGE GIVEN. NO OTHER ACUTE CHANGES TO NOTE ON AT THIS TIME. WILL CONTINUE TO MONITOR.
--- NOTE | 2020-12-12 18:17 | NUR ---
SHIFT SUMMARY PATIENT HAS REMAINED ALERT AND ORIENTED X 4, CAM, PLEASANT, AND COOPERATIVE. PATIENT HAD TMAX OF 99.5 DEGREES FAHRENHEIT. PATIENT GIVEN PRN TYLENOL OT THIS SHIFT FOR COMPLAINT OF HEADACHE. PATIENT REMAINED TRANSFERRING WELL TO [facility] WITH 1 PERSON ASSIST. PATIENT REMAINED SATTING 90% AND GREATER ON RA. PATIENT CONTINUED TO HAVE OCCASIONAL, DRY COUGH. PATIENT REMAINED IN SR, HR 70S TO 90S. SBP 90S TO 120S. LEVOPHED AT 10 MCG/ MINUTE AT BEGINNING OF SHIFT AND HAS NOW BEEN TITRATED DOWN TO SB. PATIENT HAD GOOD APPETITE THIS SHIFT. PATIENT HAD LARGE BM. PATIENT VOIDED 1400 MLS THIS SHIFT. NO CHANGE TO SKIN. PATIENT REMAINED REPOSITIONING SELF IN BED. NS TKO. 40 MEQ KCL GIVEN THIS SHIFT FOR AM POTASSIUM OF 3.2. PATIENT REFUSED BED BATH. PATIENT OOB TO CHAIR WITH ASSISTANCE. CT PERFORMED THIS SHIFT. BLOOD SUGARS RANGED FROM 156 TO 227; COVERAGE GIVEN EACH TIME. PATIENT APPEARS COMFORTABLE AT THIS TIME. BED LOW, CALL LIGHT IN REACH. REPORT WILL BE GIVEN TO ASSUMING SEARCH ENGINE OPTIMIZATION STRATEGIST NURSE SHORTLY.
[2020-12-12 18:23] LABS: Hematocrit 23.7 % (37.0-53.0); Hemoglobin 7.8 g/dL (13.5-17.5)
--- NOTE | 2020-12-12 20:41 | NUR ---
ASSUMED CARE: REPORT RECEIVED FROM WALE Ling RN. ASSUMED CARE OF THIS PT AT APPROX 1900. ON ASSESSMENT, THE PT IS A&O, PLEASANT & COOPERATIVE. HE DENIES PAIN AT THIS TIME. TEMP 100.0, TYLENOL ADMIN PER EMAR. LS ARE CLEAR, DIM IN BASES. PT ON RA W/ O2 SATS > 92%. MONITOR SHOWS SR W/ HR 90s, BP STABLE. LEVOPHED OFF SINCE APPROX 1700 PER REPORT. THE PT HAS NO GI COMPLAINTS & IS TOLERATING PO INTAKE W/O DIFFICULTY. PT VOIDS W/O DIFFICULTY. SKIN CONDITION OVERALL CDI, PT REPOSITIONS SELF OR REQUESTS ASSISTANCE REPOSITIONING SELF APPROPRIATELY. WILL CONTINUE TO MONITOR & UPDATE NEEDED.
--- NOTE | 2020-12-12 20:55 | NUR ---
DR WYATT: CALL TO PROVIDER REGARDING POSSIBLE DOWNGRADE IN PT's STATUS FROM ICU. LEVOPHED OFF SINCE APPROX 1700 & PT's AVG SBP 120-130s. PT IS OVERALL STABLE - SEE ASSUMED CARE NOTE. ORDERS PLACED FOR PCU STATUS.
--- NOTE | 2020-12-12 22:55 | NUR ---
TRANSFER OF CARE: REPORT HAS BEEN GIVEN TO WILFRIDO Oakes RN TO ASSUME CARE. PT HAS BEEN TRANSFERRED TO ROOM ICU-02 FOR STAFFING PURPOSES. ALL OF HIS BELONGINGS, CHART & MEDS HAVE BEEN TAKEN OVER W/ THE PT.
--- NOTE | 2020-12-12 23:15 | NUR ---
UPDATE: REPORT RECEIVED FROM SHARAD FRANKS. PT LAYING IN BED W/ EVEN & UNLABORED RR. APPROPRIATELY INTERACTIVE W/ STAFF. VS UPDATED & STABLE. LEVOPHED ON SB. WILL CONTINUE TO MONITOR & REPORT APPROPRIATE.
[2020-12-13 01:52] LABS: Hematocrit 21.2 % (37.0-53.0); Hemoglobin 6.9 g/dL (13.5-17.5)
[2020-12-13 03:35] LABS: Hematocrit 22.7 % (37.0-53.0); Hemoglobin 7.3 g/dL (13.5-17.5); Mean Corpuscular HGB 29.8 pg (26.0-34.0); Mean Corpuscular HGB Conc 32.2 g/dL (31.5-36.5); Mean Corpuscular Volume 93 fL (80-100); Mean Platelet Volume 11.8 fL (9.1-12.4); Platelet Count 65 K/mm3 (150-400); RDW Coefficient Variation 17.8 % (11.7-14.2); RDW Standard Deviation 60.8 fL (35.1-46.3); Red Blood Cell Count 2.45 M/mm3 (4.30-5.90); White Blood Cell Count 3.72 K/mm3 (4.00-11.30)
[2020-12-13 03:54] LABS: Albumin, Blood 2.8 g/dL (3.4-5.0); Anion Gap 5 mmol/L (6-16); Blood Urea Nitrogen 13 mg/dL (8-24); Bun/Creatinine Ratio 18.8 (12.0-20.0); CO2, Blood 25 mmol/L (21-32); Chloride, Blood 111 mmol/L (98-108); Creatinine, Blood 0.69 mg/dL (0.60-1.20); Glomerular Filtration Rate >60 (60-); Glucose, Blood 148 mg/dL (70-99); Phosphorus, Blood 2.7 mg/dL (2.5-4.9); Potassium, Blood 3.7 mmol/L (3.5-5.5); Sodium, Blood 141 mmol/L (136-145)
--- NOTE | 2020-12-13 06:00 | NUR ---
SHIFT SUMMARY: PT RESTED WELL T/O THE NIGHT. AWAKING FOR PT CARE & TO USE BSC. PT EXPRESSES HIS EXCITEMENT TO GO HOME TODAY, STS HE IS FEELING MUCH IMPROVED. LEVOPHED CONTINUES TO BE ON SB. VS STABLE & W/O ACUTE NEG CHANGES. PT NOW PCU STATUS; TODAY PLAN FOR CONSIDERATION FOR MEDICAL STATUS. WILL CONTINUE TO MONITOR & REPORT APPROPRIATE.
--- NOTE | 2020-12-13 11:48 | NUR ---
REASSESSMENT PT HAS BEEN SITTING UP IN THE CHAIR THIS MORNING. HE IS ALERT AND ORIENTED. HAD A SMALL HEADACHE THIS MORNING, TREATED WITH TYLENOL. LUNGS ARE CLEAR, RA. SR, BP STABLE. PT SAYS HIS ABDOMEN IS MARKETING PR INTERN. BANDAID OVER BIOPSY SITE IS C/D/I. EATING WELL. VOIDING WITHOUT DIFFICULTY. PT TRIED TO HAVE A BM, BUT ONLY PASSED GAS. PT GOT UP AND AMBULATED AROUND THE NURSES STATION AND TOLERATED IT WELL. CONTINUING TO MONITOR.
--- NOTE | 2020-12-13 16:17 | NUR ---
DISCHARGE PT DISCHARGING TO HOME VIA PRIVATE VEHICLE. DR. GARCIA GAVE OK FOR PT TO DRIVE HIMSELF BECAUSE PT STATES HE DOESN'T HAVE ANOTHER RIDE. PICC LINE REMOVED WITHOUT COMPLICATIONS. DC INSTRUCTIONS, MEDICATIONS AND FOLLOW UP APPOINTMENTS REVIEWED. PT STATES HE ALREADY HAS APPOINTMENT SCHEDULED WITH DR. KARIMI ON WEDNESDAY. PT ABLE TO DRESS HIMSELF. NO OTHER CONCERNS AT THIS TIME. CONTINUE TO MONITOR. PT DISCHARGED AT 1619.
[2020-12-18] MEDS ORDERED: CEFP200 PO (01:26)
[2020-12-18] MEDS ORDERED: AZIT250 PO (01:26)
== END 2020-12-13 16:27 | disposition home or self-care (01) | DRG 312 ==
LOC: US 08:23 → ICUW 12:30 → ICUE 12-12 09:36 → ICUW 12-12 09:36 → ICUE 12-12 22:52
PROVIDERS: Internal Medicine; ADMIT Nurse Practitioner Acute Care
PROC: 0FB03ZX Excision of Liver, Percutaneous Approach, Diagnostic (ICD-10-PCS; 2020-12-11)
PROC: 3E033XZ Introduction of Vasopressor into Peripheral Vein, Percutaneous Approach (ICD-10-PCS; principal; 2020-12-12)
DX: R55 Syncope and collapse (principal); R57.1 Hypovolemic shock; R94.5 Abnormal results of liver function studies; K74.60 Unspecified cirrhosis of liver; J44.9 Chronic obstructive pulmonary disease, unspecified; I95.9 Hypotension, unspecified; I25.10 Atherosclerotic heart disease of native coronary artery without angina pectoris; G89.4 Chronic pain syndrome; E11.42 Type 2 diabetes mellitus with diabetic polyneuropathy; D50.9 Iron deficiency anemia, unspecified; E78.5 Hyperlipidemia, unspecified; M54.9 Dorsalgia, unspecified; I25.2 Old myocardial infarction; Z86.718 Personal history of other venous thrombosis and embolism; Z88.0 Allergy status to penicillin; Z79.82 Long term (current) use of aspirin; Z79.02 Long term (current) use of antithrombotics/antiplatelets; Z79.4 Long term (current) use of insulin; Z79.899 Other long term (current) drug therapy; Z87.891 Personal history of nicotine dependence
CPT/HCPCS: 36569; 47000; 71045; 74177; 76942; 80053; 80069; 82140; 82550; 82553; 82947; 83735; 83880; 84484; 85014; 85018; 85025; 85027; 85610; 87081; 88305; 88313; 93005; 93010; 96374; 96376; A9270; C1751; C1769; G0378; J0171; J0461; J1815; J3480; J7030; J7050; J7060; Q9967

== ENCOUNTER 2020-12-17 16:28 | Emergency (ER) | payer OTHER ==
[~2020-12-17] VITALS: Ht 190.5 cm; Wt 108.9 kg
[~2020-12-17 16:28] MED LIST changes: +Aspir 8181 MG PO; +CEPH500 PO; +CLOP75 PO; +DILTIAZEM 24HR180 M3 PO; +FEROSUL325 M1 PO; +INSULANI SC; +LIPITOR80 MG PO; +LOSA25 PO; +Nadolol40 MG PO; +TRAZ100 PO
[2020-12-17 17:27] LABS: BASOPHILS ABSOLUTE AUTO 0.02 K/mm3 (0.00-0.23); BASOPHILS PERCENT AUTO 1 % (0-2); EOSINOPHILS PERCENT AUTO 5 % (0-6); Hematocrit 28.2 % (37.0-53.0); Hemoglobin 9.1 g/dL (13.5-17.5); IMMATURE GRAN ABSOLUTE AUTO 0.02 K/mm3 (0.00-0.10); IMMATURE GRAN PERCENT AUTO 1 % (0-1); LYMPHOCYTES ABSOLUTE AUTO 0.77 K/mm3 (0.84-5.20); LYMPHOCYTES PERCENT AUTO 18 % (21-46); MONOCYTES ABSOLUTE AUTO 0.41 K/mm3 (0.16-1.47); MONOCYTES PERCENT AUTO 10 % (4-13); Mean Corpuscular HGB 30.6 pg (26.0-34.0); Mean Corpuscular HGB Conc 32.3 g/dL (31.5-36.5); Mean Corpuscular Volume 95 fL (80-100); Mean Platelet Volume 11.4 fL (9.1-12.4); NEUTROPHILS ABSOLUTE AUTO 2.89 K/mm3 (1.96-9.15); NEUTROPHILS PERCENT AUTO 67 % (41-73); Platelet Count 108 K/mm3 (150-400); RDW Coefficient Variation 18.6 % (11.7-14.2); RDW Standard Deviation 61.3 fL (35.1-46.3); Red Blood Cell Count 2.97 M/mm3 (4.30-5.90); White Blood Cell Count 4.31 K/mm3 (4.00-11.30)
[2020-12-17 17:53] LABS: Alanine Aminotransfer (ALT/SGP 34 U/L (12-78); Albumin, Blood 3.1 g/dL (3.4-5.0); Albumin/Globulin Ratio 0.8 (0.8-1.8); Alk Phos 100 U/L (50-136); Anion Gap 4 mmol/L (6-16); Aspartate Aminotrans (AST/SGOT 50 U/L (12-37); Bilirubin, Total 1.4 mg/dL (0.1-1.0); Blood Urea Nitrogen 14 mg/dL (8-24); CO2, Blood 24 mmol/L (21-32); Calcium, Blood 8.5 mg/dL (8.5-10.1); Chloride, Blood 110 mmol/L (98-108); Globulin, Blood 4.1 g/dL (2.2-4.0); Glomerular Filtration Rate >60 (60-); Glucose, Blood 203 mg/dL (70-99); Potassium, Blood 3.8 mmol/L (3.5-5.5); Sodium, Blood 138 mmol/L (136-145); Total Protein, Blood 7.2 g/dL (6.4-8.2)
[2020-12-17 17:55] LABS: Troponin I <0.015 ng/mL (0.000-0.040)
[2020-12-17] MEDS ORDERED: LOSARTAN POTASS25 M2 PO (19:16)
[2020-12-18] MEDS ORDERED: CEFP200 PO (01:26)
[2020-12-18] MEDS ORDERED: AZIT250 PO (01:26)
== END 2020-12-17 23:00 | disposition home or self-care (01) ==
LOC: ER 16:28
PROVIDERS: Physician Assistant
DX: R06.02 Shortness of breath (principal); G89.18 Other acute postprocedural pain; R07.89 Other chest pain; E78.00 Pure hypercholesterolemia, unspecified; E11.40 Type 2 diabetes mellitus with diabetic neuropathy, unspecified; Z88.0 Allergy status to penicillin; Z79.02 Long term (current) use of antithrombotics/antiplatelets; Z79.899 Other long term (current) drug therapy; Z87.891 Personal history of nicotine dependence
CPT/HCPCS: 36415; 71046; 71260; 80053; 84484; 85025; 85379; 93005; 93010; 99284-25; A9270; Q9967

== ENCOUNTER 2020-12-23 01:47 | Day surgery (SDC) | payer OTHER ==
[~2020-12-23 01:47] MED LIST changes: +AZIT250 PO; +CEFP200 PO; +LOSARTAN POTASS25 M2 PO
== END 2020-12-23 23:06 | disposition home or self-care (01) ==
LOC: WOUND 01:47
DX: E11.621 Type 2 diabetes mellitus with foot ulcer (principal); L97.415 Non-pressure chronic ulcer of right heel and midfoot with muscle involvement without evidence of necrosis; E11.21 Type 2 diabetes mellitus with diabetic nephropathy; R93.89 Abnormal findings on diagnostic imaging of other specified body structures; J44.9 Chronic obstructive pulmonary disease, unspecified; M06.9 Rheumatoid arthritis, unspecified

== ENCOUNTER 2021-01-06 02:38 | Day surgery (SDC) | payer OTHER | END 2021-01-06 12:00 | disposition home or self-care (01) | LOC: WOUND 02:38 | DX: E11.621 Type 2 diabetes mellitus with foot ulcer (principal); L97.512 Non-pressure chronic ulcer of other part of right foot with fat layer exposed; E11.21 Type 2 diabetes mellitus with diabetic nephropathy; R93.89 Abnormal findings on diagnostic imaging of other specified body structures; M06.9 Rheumatoid arthritis, unspecified; J44.9 Chronic obstructive pulmonary disease, unspecified; Z86.718 Personal history of other venous thrombosis and embolism ==

== ENCOUNTER 2021-01-20 02:52 | Day surgery (SDC) | payer OTHER | END 2021-01-20 23:20 | disposition home or self-care (01) | LOC: WOUND 02:52 | DX: E11.621 Type 2 diabetes mellitus with foot ulcer (principal); L97.415 Non-pressure chronic ulcer of right heel and midfoot with muscle involvement without evidence of necrosis; E11.21 Type 2 diabetes mellitus with diabetic nephropathy; C94.80 Other specified leukemias not having achieved remission; M06.9 Rheumatoid arthritis, unspecified; J44.9 Chronic obstructive pulmonary disease, unspecified; M79.7 Fibromyalgia; Z86.718 Personal history of other venous thrombosis and embolism | CPT/HCPCS: A9270 ==

== ENCOUNTER 2021-02-03 00:41 | Day surgery (SDC) | payer OTHER | END 2021-02-03 23:43 | disposition home or self-care (01) | LOC: WOUND 00:41 | DX: E11.621 Type 2 diabetes mellitus with foot ulcer (principal); L97.415 Non-pressure chronic ulcer of right heel and midfoot with muscle involvement without evidence of necrosis; E11.21 Type 2 diabetes mellitus with diabetic nephropathy; R93.89 Abnormal findings on diagnostic imaging of other specified body structures; J44.9 Chronic obstructive pulmonary disease, unspecified; Z88.0 Allergy status to penicillin; Z91.048 Other nonmedicinal substance allergy status ==

== ENCOUNTER 2021-02-17 04:49 | Day surgery (SDC) | payer OTHER | END 2021-02-17 23:38 | disposition home or self-care (01) | LOC: WOUND 04:49 | DX: E11.621 Type 2 diabetes mellitus with foot ulcer (principal); L97.512 Non-pressure chronic ulcer of other part of right foot with fat layer exposed; E11.21 Type 2 diabetes mellitus with diabetic nephropathy; R93.89 Abnormal findings on diagnostic imaging of other specified body structures; J44.9 Chronic obstructive pulmonary disease, unspecified; Z86.718 Personal history of other venous thrombosis and embolism | CPT/HCPCS: G0463 ==

== ENCOUNTER 2021-03-03 03:02 | Day surgery (SDC) | payer OTHER | END 2021-03-03 22:55 | disposition home or self-care (01) | LOC: WOUND 03:02 | DX: E11.621 Type 2 diabetes mellitus with foot ulcer (principal); L97.512 Non-pressure chronic ulcer of other part of right foot with fat layer exposed; E11.21 Type 2 diabetes mellitus with diabetic nephropathy; R93.89 Abnormal findings on diagnostic imaging of other specified body structures; J44.9 Chronic obstructive pulmonary disease, unspecified; Z86.711 Personal history of pulmonary embolism | CPT/HCPCS: G0463 ==

== ENCOUNTER 2021-03-17 05:42 | Day surgery (SDC) | payer OTHER | END 2021-03-17 22:53 | disposition home or self-care (01) | LOC: WOUND 05:42 | DX: E11.621 Type 2 diabetes mellitus with foot ulcer (principal); L97.415 Non-pressure chronic ulcer of right heel and midfoot with muscle involvement without evidence of necrosis; L97.519 Non-pressure chronic ulcer of other part of right foot with unspecified severity; E11.21 Type 2 diabetes mellitus with diabetic nephropathy; R93.89 Abnormal findings on diagnostic imaging of other specified body structures; Z86.718 Personal history of other venous thrombosis and embolism; J44.9 Chronic obstructive pulmonary disease, unspecified | CPT/HCPCS: G0463 ==

== ENCOUNTER 2021-04-01 08:00 | Day surgery (SDC) | payer OTHER | END 2021-04-01 23:59 | disposition home or self-care (01) | LOC: WOUND 08:00 | DX: E11.621 Type 2 diabetes mellitus with foot ulcer (principal); L97.415 Non-pressure chronic ulcer of right heel and midfoot with muscle involvement without evidence of necrosis; L97.519 Non-pressure chronic ulcer of other part of right foot with unspecified severity | CPT/HCPCS: G0463 ==

== ENCOUNTER 2021-04-08 03:20 | Day surgery (SDC) | payer OTHER | END 2021-04-08 23:39 | disposition home or self-care (01) | LOC: WOUND 03:20 | DX: E11.621 Type 2 diabetes mellitus with foot ulcer (principal); L97.415 Non-pressure chronic ulcer of right heel and midfoot with muscle involvement without evidence of necrosis; L97.519 Non-pressure chronic ulcer of other part of right foot with unspecified severity; R93.89 Abnormal findings on diagnostic imaging of other specified body structures; E11.21 Type 2 diabetes mellitus with diabetic nephropathy; E11.40 Type 2 diabetes mellitus with diabetic neuropathy, unspecified ==

== ENCOUNTER 2021-04-22 02:59 | Day surgery (SDC) | payer OTHER | END 2021-04-22 22:58 | disposition home or self-care (01) | LOC: WOUND 02:59 | DX: E11.621 Type 2 diabetes mellitus with foot ulcer (principal); L97.515 Non-pressure chronic ulcer of other part of right foot with muscle involvement without evidence of necrosis; E11.21 Type 2 diabetes mellitus with diabetic nephropathy; R93.89 Abnormal findings on diagnostic imaging of other specified body structures; E11.51 Type 2 diabetes mellitus with diabetic peripheral angiopathy without gangrene | CPT/HCPCS: G0463 ==

== ENCOUNTER 2021-05-06 00:48 | Day surgery (SDC) | payer OTHER | END 2021-05-06 23:06 | disposition home or self-care (01) | LOC: WOUND 00:48 | DX: E11.621 Type 2 diabetes mellitus with foot ulcer (principal); L97.512 Non-pressure chronic ulcer of other part of right foot with fat layer exposed; E11.40 Type 2 diabetes mellitus with diabetic neuropathy, unspecified; E11.51 Type 2 diabetes mellitus with diabetic peripheral angiopathy without gangrene; E11.21 Type 2 diabetes mellitus with diabetic nephropathy | CPT/HCPCS: G0463 ==

== ENCOUNTER 2021-06-03 04:05 | Day surgery (SDC) | payer MEDICARE, OTHER | END 2021-06-03 23:07 | disposition home or self-care (01) | LOC: WOUND 04:05 | DX: E11.621 Type 2 diabetes mellitus with foot ulcer (principal); L97.415 Non-pressure chronic ulcer of right heel and midfoot with muscle involvement without evidence of necrosis; E11.21 Type 2 diabetes mellitus with diabetic nephropathy; R93.89 Abnormal findings on diagnostic imaging of other specified body structures; E11.51 Type 2 diabetes mellitus with diabetic peripheral angiopathy without gangrene ==

== ENCOUNTER → 2021-06-03 | Outpatient (CLI) | payer MEDICARE, OTHER | LOC: LAB SHORT 13:34 | DX: L82.1 Other seborrheic keratosis (principal); L30.8 Other specified dermatitis; L73.8 Other specified follicular disorders | CPT/HCPCS: 88312 ==

== ENCOUNTER 2021-06-17 04:02 | Day surgery (SDC) | payer MEDICARE, OTHER | END 2021-06-17 23:23 | disposition home or self-care (01) | LOC: WOUND 04:02 | DX: E11.621 Type 2 diabetes mellitus with foot ulcer (principal); L97.415 Non-pressure chronic ulcer of right heel and midfoot with muscle involvement without evidence of necrosis; E11.21 Type 2 diabetes mellitus with diabetic nephropathy; E11.51 Type 2 diabetes mellitus with diabetic peripheral angiopathy without gangrene; R93.89 Abnormal findings on diagnostic imaging of other specified body structures | CPT/HCPCS: A9270 ==

== ENCOUNTER 2021-07-01 05:13 | Day surgery (SDC) | payer MEDICARE, OTHER ==
[~2021-07-01 05:13] MED LIST changes: +LACT10SY PO; +MAGNESIUM OXID500 MG PO
== END 2021-07-01 22:54 | disposition home or self-care (01) ==
LOC: WOUND 05:13
DX: E11.621 Type 2 diabetes mellitus with foot ulcer (principal); L97.415 Non-pressure chronic ulcer of right heel and midfoot with muscle involvement without evidence of necrosis; E11.21 Type 2 diabetes mellitus with diabetic nephropathy; E11.51 Type 2 diabetes mellitus with diabetic peripheral angiopathy without gangrene

== ENCOUNTER 2021-07-15 03:55 | Day surgery (SDC) | payer MEDICARE, OTHER | END 2021-07-15 22:53 | disposition home or self-care (01) | LOC: WOUND 03:55 | DX: E11.621 Type 2 diabetes mellitus with foot ulcer (principal); L97.415 Non-pressure chronic ulcer of right heel and midfoot with muscle involvement without evidence of necrosis; E11.21 Type 2 diabetes mellitus with diabetic nephropathy; E11.51 Type 2 diabetes mellitus with diabetic peripheral angiopathy without gangrene; E11.40 Type 2 diabetes mellitus with diabetic neuropathy, unspecified; R91.8 Other nonspecific abnormal finding of lung field; L03.115 Cellulitis of right lower limb; B95.61 Methicillin susceptible Staphylococcus aureus infection as the cause of diseases classified elsewhere ==

== ENCOUNTER 2021-07-22 00:31 | Day surgery (SDC) | payer MEDICARE, OTHER | END 2021-07-22 23:00 | disposition home or self-care (01) | LOC: WOUND 00:31 | DX: E11.621 Type 2 diabetes mellitus with foot ulcer (principal); L97.415 Non-pressure chronic ulcer of right heel and midfoot with muscle involvement without evidence of necrosis; E11.21 Type 2 diabetes mellitus with diabetic nephropathy; E11.51 Type 2 diabetes mellitus with diabetic peripheral angiopathy without gangrene ==

== ENCOUNTER 2021-07-29 05:56 | Day surgery (SDC) | payer MEDICARE, OTHER | END 2021-07-29 23:58 | disposition home or self-care (01) | LOC: WOUND 05:56 | DX: E11.621 Type 2 diabetes mellitus with foot ulcer (principal); L97.415 Non-pressure chronic ulcer of right heel and midfoot with muscle involvement without evidence of necrosis; E11.21 Type 2 diabetes mellitus with diabetic nephropathy; R93.89 Abnormal findings on diagnostic imaging of other specified body structures; E11.51 Type 2 diabetes mellitus with diabetic peripheral angiopathy without gangrene ==

== ENCOUNTER 2021-08-05 04:55 | Day surgery (SDC) | payer MEDICARE, OTHER | END 2021-08-05 23:54 | disposition home or self-care (01) | LOC: WOUND 04:55 | DX: E11.621 Type 2 diabetes mellitus with foot ulcer (principal); L97.415 Non-pressure chronic ulcer of right heel and midfoot with muscle involvement without evidence of necrosis; E11.21 Type 2 diabetes mellitus with diabetic nephropathy; E11.51 Type 2 diabetes mellitus with diabetic peripheral angiopathy without gangrene; R93.89 Abnormal findings on diagnostic imaging of other specified body structures ==

== ENCOUNTER 2021-08-12 01:58 | Day surgery (SDC) | payer MEDICARE, OTHER | END 2021-08-12 23:41 | disposition home or self-care (01) | LOC: WOUND 01:58 | DX: E11.621 Type 2 diabetes mellitus with foot ulcer (principal); L97.415 Non-pressure chronic ulcer of right heel and midfoot with muscle involvement without evidence of necrosis; E11.21 Type 2 diabetes mellitus with diabetic nephropathy; E11.51 Type 2 diabetes mellitus with diabetic peripheral angiopathy without gangrene | CPT/HCPCS: G0463 ==

== ENCOUNTER 2021-08-26 08:00 | Day surgery (SDC) | payer MEDICARE, OTHER | END 2021-08-26 23:59 | disposition home or self-care (01) | LOC: WOUND 08:00 | DX: E11.621 Type 2 diabetes mellitus with foot ulcer (principal); L97.415 Non-pressure chronic ulcer of right heel and midfoot with muscle involvement without evidence of necrosis; E11.21 Type 2 diabetes mellitus with diabetic nephropathy; R93.89 Abnormal findings on diagnostic imaging of other specified body structures; E11.51 Type 2 diabetes mellitus with diabetic peripheral angiopathy without gangrene ==

== ENCOUNTER 2021-09-09 02:03 | Day surgery (SDC) | payer MEDICARE, OTHER | END 2021-09-09 23:31 | disposition home or self-care (01) | LOC: WOUND 02:03 | DX: E11.621 Type 2 diabetes mellitus with foot ulcer (principal); L97.515 Non-pressure chronic ulcer of other part of right foot with muscle involvement without evidence of necrosis; E11.21 Type 2 diabetes mellitus with diabetic nephropathy; I73.9 Peripheral vascular disease, unspecified; R93.89 Abnormal findings on diagnostic imaging of other specified body structures | CPT/HCPCS: G0463 ==

== ENCOUNTER 2021-09-23 01:25 | Day surgery (SDC) | payer MEDICARE, OTHER | END 2021-09-23 23:26 | disposition home or self-care (01) | LOC: WOUND 01:25 | DX: E11.621 Type 2 diabetes mellitus with foot ulcer (principal); L97.415 Non-pressure chronic ulcer of right heel and midfoot with muscle involvement without evidence of necrosis; E11.21 Type 2 diabetes mellitus with diabetic nephropathy; R93.89 Abnormal findings on diagnostic imaging of other specified body structures; E11.51 Type 2 diabetes mellitus with diabetic peripheral angiopathy without gangrene | CPT/HCPCS: A9270 ==

== ENCOUNTER 2021-10-07 01:56 | Day surgery (SDC) | payer MEDICARE, OTHER | END 2021-10-07 23:20 | disposition home or self-care (01) | LOC: WOUND 01:56 | DX: E11.621 Type 2 diabetes mellitus with foot ulcer (principal); L97.515 Non-pressure chronic ulcer of other part of right foot with muscle involvement without evidence of necrosis; E11.21 Type 2 diabetes mellitus with diabetic nephropathy; E11.51 Type 2 diabetes mellitus with diabetic peripheral angiopathy without gangrene; R93.89 Abnormal findings on diagnostic imaging of other specified body structures | CPT/HCPCS: A9270 ==

== ENCOUNTER 2021-10-21 02:04 | Day surgery (SDC) | payer MEDICARE, OTHER | END 2021-10-21 23:17 | disposition home or self-care (01) | LOC: WOUND 02:04 | DX: E11.621 Type 2 diabetes mellitus with foot ulcer (principal); L97.415 Non-pressure chronic ulcer of right heel and midfoot with muscle involvement without evidence of necrosis; E11.21 Type 2 diabetes mellitus with diabetic nephropathy; E11.51 Type 2 diabetes mellitus with diabetic peripheral angiopathy without gangrene | CPT/HCPCS: G0463 ==

== ENCOUNTER → 2021-10-23 | Outpatient (CLI) | payer MEDICARE, OTHER ==
[2021-10-23 17:54] LABS: Hematocrit 33.3 % (37.0-53.0); Hemoglobin 11.3 g/dL (13.5-17.5); Mean Corpuscular HGB 32.5 pg (26.0-34.0); Mean Corpuscular HGB Conc 33.9 g/dL (31.5-36.5); Mean Corpuscular Volume 96 fL (80-100); Mean Platelet Volume 10.4 fL (9.1-12.4); Platelet Count 84 K/mm3 (150-400); RDW Coefficient Variation 14.6 % (11.7-14.2); RDW Standard Deviation 50.5 fL (35.1-46.3); Red Blood Cell Count 3.48 M/mm3 (4.30-5.90)
[2021-10-23 17:57] LABS: Bun/Creatinine Ratio 16.7 (12.0-20.0); Calcium, Blood 8.8 mg/dL (8.5-10.1); Creatinine, Blood 0.9 mg/dL (0.60-1.20); Potassium, Blood 3.6 mmol/L (3.5-5.5)
[2021-10-23 19:24] LABS: BASOPHILS ABSOLUTE MAN 0.13 K/mm3 (0.00-0.23); BASOPHILS PERCENT MAN 3 % (0-2); EOSINOPHILS ABSOLUTE MAN 0.96 K/mm3 (0.00-0.68); EOSINOPHILS PERCENT MAN 22 % (0-6); LYMPHOCYTES ABSOLUTE MAN 1.05 K/mm3 (0.84-5.20); LYMPHOCYTES PERCENT MAN 24 % (21-46); MONOCYTES ABSOLUTE MAN 0.39 K/mm3 (0.16-1.47); MONOCYTES PERCENT MAN 9 % (4-13); NEUTROPHILS ABSOLUTE MAN 1.84 K/mm3 (1.96-9.15); SEG NEUTROPHILS PERCENT MAN 42 % (41-73); TOTAL CELLS COUNTED 100
== END | disposition home or self-care (01) ==
LOC: LAB SHORT 17:47
PROVIDERS: Physician Assistant
DX: R06.00 Dyspnea, unspecified (principal)
CPT/HCPCS: 80048; 85025

== ENCOUNTER 2021-11-04 01:56 | Day surgery (SDC) | payer MEDICARE, OTHER | END 2021-11-04 22:58 | disposition home or self-care (01) | LOC: WOUND 01:56 | DX: E11.621 Type 2 diabetes mellitus with foot ulcer (principal); L97.512 Non-pressure chronic ulcer of other part of right foot with fat layer exposed; E11.21 Type 2 diabetes mellitus with diabetic nephropathy; E11.51 Type 2 diabetes mellitus with diabetic peripheral angiopathy without gangrene; R93.89 Abnormal findings on diagnostic imaging of other specified body structures | CPT/HCPCS: G0463 ==

== ENCOUNTER 2021-11-18 05:19 | Day surgery (SDC) | payer MEDICARE, OTHER | END 2021-11-18 23:00 | disposition home or self-care (01) | LOC: WOUND 05:19 | DX: E11.621 Type 2 diabetes mellitus with foot ulcer (principal); L97.515 Non-pressure chronic ulcer of other part of right foot with muscle involvement without evidence of necrosis; E11.21 Type 2 diabetes mellitus with diabetic nephropathy; E11.51 Type 2 diabetes mellitus with diabetic peripheral angiopathy without gangrene; R93.89 Abnormal findings on diagnostic imaging of other specified body structures | CPT/HCPCS: A9270 ==

== ENCOUNTER → 2021-12-09 | Day surgery (SDC) | payer MEDICARE | LOC: WOUND 03:18 | DX: E11.621 Type 2 diabetes mellitus with foot ulcer (principal); L97.412 Non-pressure chronic ulcer of right heel and midfoot with fat layer exposed; E11.21 Type 2 diabetes mellitus with diabetic nephropathy; E11.51 Type 2 diabetes mellitus with diabetic peripheral angiopathy without gangrene; R93.89 Abnormal findings on diagnostic imaging of other specified body structures ==

== ENCOUNTER 2021-12-23 01:02 | Day surgery (SDC) | payer MEDICARE, OTHER ==
[2021-12-23] MEDS ORDERED: LOSA25 PO (15:59)
[2021-12-23] MEDS ORDERED: INSULANI SC (16:00)
[2021-12-23] MEDS ORDERED: SPIR25 PO (16:01)
[2021-12-23] MEDS ORDERED: MIRALAX17 GM PO (16:02)
== END 2021-12-24 00:10 | disposition home or self-care (01) ==
LOC: WOUND 01:02
DX: E11.621 Type 2 diabetes mellitus with foot ulcer (principal); L97.512 Non-pressure chronic ulcer of other part of right foot with fat layer exposed; E11.21 Type 2 diabetes mellitus with diabetic nephropathy; E11.51 Type 2 diabetes mellitus with diabetic peripheral angiopathy without gangrene; R93.89 Abnormal findings on diagnostic imaging of other specified body structures

== ENCOUNTER 2021-12-24 07:34 | Day surgery (SDC) | payer MEDICARE, OTHER ==
[~2021-12-24] VITALS: Ht 190.5 cm; Wt 95.4 kg
[~2021-12-24 07:34] MED LIST changes: +MIRALAX17 GM PO
--- NOTE | 2021-12-24 08:16 | NUR ---
Ambulatory in Day Surgery. History, Chart, Medications and Allergies reviewed before start of procedure. Patient States Post-Procedure ride home has been arranged WITH
--- NOTE | 2021-12-24 09:09 | NUR ---
12/24/21 0909 Libra Knight HISTORY,CHART, MEDICATIONS AND ALLERGIES REVIEWED BEFORE START OF PROCEDURE. PATIENT CONFIRMS NPO STATUS AND AGREES WITH SCHEDULED PROCEDURE. 3-LEAD EKG REVIEWED WITH PHYSICIAN PRIOR TO START OF PROCEDURE. MONITOR INTACT WITH CONTINUOUS PULSE OXIMETRY, 3-LEAD EKG, CAPNOGRAPHY AND INTERMITTENT BP. SUPPLEMENTAL O2 TO BE TITRATED THROUGHOUT PROCEDURE TO MAINTAIN O2 SATURATION ABOVE 90%. PATIENT DETERMINED TO BE ASA APPROPRIATE FOR MODERATE SEDATION PRIOR TO START OF PROCEDURE BY DR. KARIMI.
--- NOTE | 2021-12-24 10:20 | NUR ---
DISCHARGE INSTRUCTIONS REVIEWED WITH PT, PT VERBALIZES UNDERSTANDING. PT DISCHARGED VIA WHEELCHAIR TO A PRIVATE CAR RIDE HOME
== END 2021-12-24 10:25 | disposition home or self-care (01) ==
LOC: ORSCMMR 07:34 → ORD 08:30 → ORSCMMR 10:25
PROVIDERS: Internal Medicine Gastroenterology
PROC: 0DJ08ZZ Inspection of Upper Intestinal Tract, Via Natural or Artificial Opening Endoscopic (ICD-10-PCS; principal; 2021-12-24 08:30)
DX: K74.60 Unspecified cirrhosis of liver (principal); I85.10 Secondary esophageal varices without bleeding; K76.6 Portal hypertension; K31.89 Other diseases of stomach and duodenum; E11.621 Type 2 diabetes mellitus with foot ulcer; I25.10 Atherosclerotic heart disease of native coronary artery without angina pectoris; Z79.01 Long term (current) use of anticoagulants; Z79.82 Long term (current) use of aspirin; Z79.4 Long term (current) use of insulin; Z79.899 Other long term (current) drug therapy; Z87.891 Personal history of nicotine dependence
CPT/HCPCS: 82947; A9270; J2250; J3010; J7120

== ENCOUNTER 2022-01-15 18:41 | Emergency (ER) | payer MEDICARE, OTHER ==
[~2022-01-15] VITALS: Ht 190.5 cm; Wt 99.8 kg
[2022-01-15 20:25] LABS: BASOPHILS ABSOLUTE AUTO 0.03 K/mm3 (0.00-0.23); BASOPHILS PERCENT AUTO 1 % (0-2); EOSINOPHILS ABSOLUTE AUTO 0.15 K/mm3 (0.00-0.68); EOSINOPHILS PERCENT AUTO 3 % (0-6); Hematocrit 30.3 % (37.0-53.0); Hemoglobin 10.3 g/dL (13.5-17.5); IMMATURE GRAN ABSOLUTE AUTO 0.01 K/mm3 (0.00-0.10); IMMATURE GRAN PERCENT AUTO 0 % (0-1); LYMPHOCYTES PERCENT AUTO 16 % (21-46); MONOCYTES ABSOLUTE AUTO 0.62 K/mm3 (0.16-1.47); MONOCYTES PERCENT AUTO 14 % (4-13); Mean Corpuscular HGB 32.2 pg (26.0-34.0); Mean Corpuscular Volume 95 fL (80-100); Mean Platelet Volume 10.4 fL (9.1-12.4); NEUTROPHILS ABSOLUTE AUTO 2.97 K/mm3 (1.96-9.15); NEUTROPHILS PERCENT AUTO 66 % (41-73); Platelet Count 86 K/mm3 (150-400); RDW Coefficient Variation 14.6 % (11.7-14.2); White Blood Cell Count 4.48 K/mm3 (4.00-11.30)
[2022-01-15 20:43] LABS: Albumin, Blood 2.4 g/dL (3.4-5.0); Albumin/Globulin Ratio 0.5 (0.8-1.8); Bilirubin, Total 1.2 mg/dL (0.1-1.0); Bun/Creatinine Ratio 24.5 (12.0-20.0); Calcium, Blood 8.3 mg/dL (8.5-10.1); Creatinine, Blood 0.69 mg/dL (0.60-1.20); Globulin, Blood 5.3 g/dL (2.2-4.0); Potassium, Blood 3.5 mmol/L (3.5-5.5); Total Protein, Blood 7.7 g/dL (6.4-8.2)
[2022-01-15 21:02] LABS: Influenza A, PCR NEGATIVE (NEGATIVE); Influenza B, PCR NEGATIVE (NEGATIVE); Resp Syncytial Virus, PCR NEGATIVE (NEGATIVE)
[2022-01-15 21:05] LABS: SARS-Cov-2 (COVID-19) PCR, MMC POSITIVE (NEGATIVE)
[2022-01-15] MEDS ORDERED: ONDA4ODT MM (23:22)
== END 2022-01-15 23:28 | disposition home or self-care (01) ==
LOC: ER 18:41
PROVIDERS: Physician Assistant
DX: U07.1 COVID-19 (principal); E83.42 Hypomagnesemia; E11.9 Type 2 diabetes mellitus without complications; I25.10 Atherosclerotic heart disease of native coronary artery without angina pectoris; I10 Essential (primary) hypertension; J44.9 Chronic obstructive pulmonary disease, unspecified; I25.2 Old myocardial infarction; Z87.891 Personal history of nicotine dependence; Z79.899 Other long term (current) drug therapy; Z79.02 Long term (current) use of antithrombotics/antiplatelets; Z79.4 Long term (current) use of insulin
CPT/HCPCS: 0241U; 71045; 80053; 83735; 85025; 93005; 93010; 96361; 96374; 96375; 99284-25; A9270; J1885; J3475; J7030; M0222

== ENCOUNTER 2022-01-27 00:58 | Day surgery (SDC) | payer MEDICARE, OTHER | END 2022-01-27 23:57 | disposition home or self-care (01) | LOC: WOUND 00:58 | DX: E11.621 Type 2 diabetes mellitus with foot ulcer (principal); L97.512 Non-pressure chronic ulcer of other part of right foot with fat layer exposed; E11.21 Type 2 diabetes mellitus with diabetic nephropathy; R93.89 Abnormal findings on diagnostic imaging of other specified body structures; E11.51 Type 2 diabetes mellitus with diabetic peripheral angiopathy without gangrene | CPT/HCPCS: A9270 ==

== ENCOUNTER → 2022-01-29 | Outpatient (CLI) | payer MEDICARE, OTHER ==
[2022-01-29 13:51] LABS: Stool Occult Bld Immuno 1 Negative (NEGATIVE)
== END | disposition home or self-care (01) ==
LOC: LAB SHORT 09:45
PROVIDERS: Family Medicine
DX: D64.89 Other specified anemias (principal); R06.09 Other forms of dyspnea; R53.83 Other fatigue
CPT/HCPCS: 82274

== ENCOUNTER 2022-02-24 02:23 | Day surgery (SDC) | payer MEDICARE, OTHER | END 2022-02-24 22:54 | disposition home or self-care (01) | LOC: WOUND 02:23 | DX: E11.621 Type 2 diabetes mellitus with foot ulcer (principal); L97.415 Non-pressure chronic ulcer of right heel and midfoot with muscle involvement without evidence of necrosis; E11.40 Type 2 diabetes mellitus with diabetic neuropathy, unspecified; E11.51 Type 2 diabetes mellitus with diabetic peripheral angiopathy without gangrene; R77.0 Abnormality of albumin; R63.4 Abnormal weight loss | CPT/HCPCS: A9270 ==

== ENCOUNTER 2022-03-10 02:48 | Day surgery (SDC) | payer MEDICARE, OTHER | END 2022-03-10 23:11 | disposition home or self-care (01) | LOC: WOUND 02:48 | DX: E11.621 Type 2 diabetes mellitus with foot ulcer (principal); L97.415 Non-pressure chronic ulcer of right heel and midfoot with muscle involvement without evidence of necrosis; L89.892 Pressure ulcer of other site, stage 2; E11.40 Type 2 diabetes mellitus with diabetic neuropathy, unspecified; E11.51 Type 2 diabetes mellitus with diabetic peripheral angiopathy without gangrene; R77.0 Abnormality of albumin; R63.4 Abnormal weight loss | CPT/HCPCS: A9270 ==

== ENCOUNTER 2022-03-18 16:37 | Emergency (ER) | payer MEDICARE, OTHER ==
[~2022-03-18] VITALS: Ht 193 cm; Wt 94.3 kg
[~2022-03-18 16:37] MED LIST changes: -VISBIOME 112.51 EACH PO
[2022-03-18 17:07] LABS: BASOPHILS ABSOLUTE AUTO 0.05 K/mm3 (0.00-0.23); BASOPHILS PERCENT AUTO 1 % (0-2); EOSINOPHILS ABSOLUTE AUTO 0.95 K/mm3 (0.00-0.68); EOSINOPHILS PERCENT AUTO 19 % (0-6); Hematocrit 33.2 % (37.0-53.0); IMMATURE GRAN ABSOLUTE AUTO 0.01 K/mm3 (0.00-0.10); IMMATURE GRAN PERCENT AUTO 0 % (0-1); LYMPHOCYTES ABSOLUTE AUTO 0.95 K/mm3 (0.84-5.20); LYMPHOCYTES PERCENT AUTO 19 % (21-46); MONOCYTES ABSOLUTE AUTO 0.48 K/mm3 (0.16-1.47); MONOCYTES PERCENT AUTO 10 % (4-13); Mean Corpuscular HGB 32.4 pg (26.0-34.0); Mean Corpuscular HGB Conc 33.1 g/dL (31.5-36.5); Mean Corpuscular Volume 98 fL (80-100); Mean Platelet Volume 10.4 fL (9.1-12.4); NEUTROPHILS ABSOLUTE AUTO 2.46 K/mm3 (1.96-9.15); NEUTROPHILS PERCENT AUTO 50 % (41-73); Platelet Count 107 K/mm3 (150-400); RDW Coefficient Variation 16.2 % (11.7-14.2)
[2022-03-18 18:00] LABS: Influenza A, PCR NEGATIVE (NEGATIVE); Influenza B, PCR NEGATIVE (NEGATIVE); Resp Syncytial Virus, PCR NEGATIVE (NEGATIVE)
[2022-03-18 18:27] LABS: Albumin, Blood 2.6 g/dL (3.4-5.0); Albumin/Globulin Ratio 0.4 (0.8-1.8); Bilirubin, Total 1.1 mg/dL (0.1-1.0); Bun/Creatinine Ratio 20.8 (12.0-20.0); Calcium, Blood 9.1 mg/dL (8.5-10.1); Creatinine, Blood 0.58 mg/dL (0.60-1.20); Potassium, Blood 3.6 mmol/L (3.5-5.5); Total Protein, Blood 8.6 g/dL (6.4-8.2)
[2022-03-18 18:37] LABS: SARS-Cov-2 (COVID-19) PCR, MMC POSITIVE (NEGATIVE)
[2022-03-18 19:32] LABS: Source, Urine Clean Catch
[2022-03-18 19:35] LABS: Appearance, Urine Clear (Clear); Bilirubin, Urine Neg (Neg); Blood, Urine 1+ (Neg); Color, Urine Yellow (P-Yellow); Glucose Qualitative, Urine Neg (Neg); Ketones, Urine Neg (Neg); Leukocyte Esterase, Urine Neg (Neg); Nitrite, Urine Neg (Neg); Protein, Urine Neg (Neg); Specific Gravity, Urine 1.015 (1.003-1.022); Urobilinogen, Urine 2+ (Normal)
[2022-03-18 19:41] LABS: Bacteria Rare /hpf; Squamous Epithelial Cells Not Seen /hpf (Few); White Blood Cells, Urine 0-2 /hpf (0-5)
== END 2022-03-18 20:11 | disposition home or self-care (01) ==
LOC: ER 16:37
PROVIDERS: Physician Assistant; Student in an Organized Health Care Education/Training Program
DX: U07.1 COVID-19 (principal); E11.9 Type 2 diabetes mellitus without complications; Z88.0 Allergy status to penicillin; Z79.899 Other long term (current) drug therapy; Z79.4 Long term (current) use of insulin; Z87.891 Personal history of nicotine dependence
CPT/HCPCS: 0241U; 36415; 71046; 80053; 81001; 83880; 84484; 85025; 93005; 93010

== ENCOUNTER → 2022-03-18 | Outpatient (CLI) | payer MEDICARE, OTHER ==
[~2022-03-18] MED LIST changes: +VISBIOME 112.51 EACH PO
== END ==
LOC: LAB SHORT 15:50 → LAB 15:50 → LAB SHORT 03-19 10:42
DX: F44.89 Other dissociative and conversion disorders (principal); R31.9 Hematuria, unspecified
CPT/HCPCS: 87077; 87086; 87186

== ENCOUNTER 2022-03-31 03:57 | Day surgery (SDC) | payer MEDICARE, OTHER ==
[~2022-03-31 03:57] MED LIST changes: +VISBIOME 112.51 EACH PO
== END 2022-03-31 23:22 | disposition home or self-care (01) ==
LOC: WOUND 03:57
DX: E11.621 Type 2 diabetes mellitus with foot ulcer (principal); L97.512 Non-pressure chronic ulcer of other part of right foot with fat layer exposed; Z87.01 Personal history of pneumonia (recurrent); L89.899 Pressure ulcer of other site, unspecified stage; E11.40 Type 2 diabetes mellitus with diabetic neuropathy, unspecified; E11.51 Type 2 diabetes mellitus with diabetic peripheral angiopathy without gangrene

== ENCOUNTER 2022-04-14 03:21 | Day surgery (SDC) | payer MEDICARE, OTHER | END 2022-04-14 22:45 | disposition home or self-care (01) | LOC: WOUND 03:21 | DX: E11.621 Type 2 diabetes mellitus with foot ulcer (principal); L97.415 Non-pressure chronic ulcer of right heel and midfoot with muscle involvement without evidence of necrosis; E11.40 Type 2 diabetes mellitus with diabetic neuropathy, unspecified; E11.51 Type 2 diabetes mellitus with diabetic peripheral angiopathy without gangrene; R77.0 Abnormality of albumin; R63.4 Abnormal weight loss; Z68.30 Body mass index [BMI] 30.0-30.9, adult | CPT/HCPCS: G0463 ==

== ENCOUNTER 2022-04-28 01:59 | Day surgery (SDC) | payer MEDICARE, OTHER | END 2022-04-28 23:07 | disposition home or self-care (01) | LOC: WOUND 01:59 | DX: E11.621 Type 2 diabetes mellitus with foot ulcer (principal); L97.512 Non-pressure chronic ulcer of other part of right foot with fat layer exposed; E11.40 Type 2 diabetes mellitus with diabetic neuropathy, unspecified; E11.51 Type 2 diabetes mellitus with diabetic peripheral angiopathy without gangrene; R77.0 Abnormality of albumin; R63.4 Abnormal weight loss | CPT/HCPCS: A9270 ==

== ENCOUNTER 2022-06-01 19:15 | Inpatient (IN) | payer MEDICARE, OTHER ==
[~2022-06-01] VITALS: Ht 195.6 cm; Wt 98.5 kg
[2022-06-01 20:04] LABS: Hematocrit 31.1 % (37.0-53.0); Hemoglobin 10.5 g/dL (13.5-17.5); Mean Corpuscular HGB Conc 33.8 g/dL (31.5-36.5); Mean Corpuscular Volume 95 fL (80-100); Platelet Count 89 K/mm3 (150-400); RDW Coefficient Variation 16.6 % (11.7-14.2); RDW Standard Deviation 57.1 fL (35.1-46.3); Red Blood Cell Count 3.28 M/mm3 (4.30-5.90); White Blood Cell Count 3.73 K/mm3 (4.00-11.30)
[2022-06-01 20:23] LABS: Influenza A, PCR NEGATIVE (NEGATIVE); Influenza B, PCR NEGATIVE (NEGATIVE); Resp Syncytial Virus, PCR NEGATIVE (NEGATIVE); SARS-Cov-2 (COVID-19) PCR, MMC NEGATIVE (NEGATIVE)
[2022-06-01 20:26] LABS: Albumin, Blood 2.3 g/dL (3.4-5.0); Albumin/Globulin Ratio 0.4 (0.8-1.8); Bilirubin, Total 1.3 mg/dL (0.1-1.0); Bun/Creatinine Ratio 23.6 (12.0-20.0); Calcium, Blood 8.7 mg/dL (8.5-10.1); Creatinine, Blood 0.55 mg/dL (0.60-1.20); Globulin, Blood 6.5 g/dL (2.2-4.0); Potassium, Blood 4.4 mmol/L (3.5-5.5); Total Protein, Blood 8.8 g/dL (6.4-8.2)
[2022-06-01 20:36] LABS: Source, Urine Clean Catch
[2022-06-01 20:43] LABS: Appearance, Urine Cloudy (Clear); Bilirubin, Urine Neg (Neg); Blood, Urine 2+ (Neg); Color, Urine Yellow (P-Yellow); Glucose Qualitative, Urine Neg (Neg); Ketones, Urine Neg (Neg); Leukocyte Esterase, Urine Neg (Neg); Nitrite, Urine Neg (Neg); Protein, Urine Neg (Neg); Urobilinogen, Urine 2+ (Normal)
[2022-06-01 21:02] LABS: Amorphous Mod (0-Heavy); Bacteria Rare /hpf; Red Blood Cells, Urine 0-2 /hpf (0-2); Squamous Epithelial Cells Rare /hpf (Few); White Blood Cells, Urine 0-2 /hpf (0-5)
[2022-06-01 21:12] LABS: BASOPHILS ABSOLUTE MAN 0.14 K/mm3 (0.00-0.23); BASOPHILS PERCENT MAN 4 % (0-2); EOSINOPHILS ABSOLUTE MAN 0.89 K/mm3 (0.00-0.68); EOSINOPHILS PERCENT MAN 24 % (0-6); LYMPHOCYTES ABSOLUTE MAN 0.74 K/mm3 (0.84-5.20); LYMPHOCYTES PERCENT MAN 20 % (21-46); MONOCYTES ABSOLUTE MAN 0.26 K/mm3 (0.16-1.47); MONOCYTES PERCENT MAN 7 % (4-13); NEUTROPHILS ABSOLUTE MAN 1.67 K/mm3 (1.96-9.15); SEG NEUTROPHILS PERCENT MAN 45 % (41-73); TOTAL CELLS COUNTED 100
--- NOTE | 2022-06-01 23:40 | NUR ---
RECIEVED REPORT FROM ИРИНА OROURKE IN ER. PT TO BE ON WAY TO ICU.
--- NOTE | 2022-06-01 23:50 | NUR ---
ASSUMED CARE OF PT AT 2350 PT SLEEPY BUT AROUSABLE WHEN ADMITED TO ROOM. BP AND HR WNL. PT A/O X3-4. CALLED PT SPOUSE AND INFORMED HER OF THE PRESENT SITUATION. PT ABLE TO CONFIRM SOME MEDICATIONS THAT HE TAKES AT HOME, NOT RELIED UPON. SPOUSE UNABLE TO REMEMBER AND WAS NOT ABLE TO GET TO MEDS AT THIS TIME. PT ABLE TO MAKE NEEDS KNOWN WITH CALL LIGHT. SEE FULL ASSESSMENT FOR FURTHER INFORMATION.
[2022-06-02 04:44] LABS: BASOPHILS ABSOLUTE AUTO 0.07 K/mm3 (0.00-0.23); BASOPHILS PERCENT AUTO 2 % (0-2); EOSINOPHILS ABSOLUTE AUTO 1.04 K/mm3 (0.00-0.68); EOSINOPHILS PERCENT AUTO 22 % (0-6); Hematocrit 32.6 % (37.0-53.0); IMMATURE GRAN ABSOLUTE AUTO 0.02 K/mm3 (0.00-0.10); IMMATURE GRAN PERCENT AUTO 0 % (0-1); LYMPHOCYTES ABSOLUTE AUTO 1.17 K/mm3 (0.84-5.20); LYMPHOCYTES PERCENT AUTO 24 % (21-46); MONOCYTES ABSOLUTE AUTO 0.59 K/mm3 (0.16-1.47); MONOCYTES PERCENT AUTO 12 % (4-13); Mean Corpuscular HGB 32.1 pg (26.0-34.0); Mean Corpuscular HGB Conc 33.7 g/dL (31.5-36.5); Mean Corpuscular Volume 95 fL (80-100); Mean Platelet Volume 10.7 fL (9.1-12.4); NEUTROPHILS ABSOLUTE AUTO 1.93 K/mm3 (1.96-9.15); NEUTROPHILS PERCENT AUTO 40 % (41-73); Platelet Count 94 K/mm3 (150-400); RDW Coefficient Variation 16.6 % (11.7-14.2); RDW Standard Deviation 57.1 fL (35.1-46.3); Red Blood Cell Count 3.43 M/mm3 (4.30-5.90); White Blood Cell Count 4.82 K/mm3 (4.00-11.30)
--- NOTE | 2022-06-02 05:24 | NUR ---
END OF SHIFT SUMMARY PT A/O X3-4. USES CALL LIGHT APPROPRIATELY AND MAKES NEEDS KNOWN. SPOUSE INFORMATED OF ILLNESS AND ADMIT TO ICU MED STATUS. CARDIAC- SINUS RHYTHM. SBP 130'S-140'S. HR 80-90'S. RESP- NON-PRODUCTIVE COUGH. SPO2 >92% ON RA. GI, - LACTULOSE GIVEN 2 TIMES IN ICU SINCE ADMIT. FIRST STOOL CONSISTED OF BROWN HARD DRY STOOL FOLLOWED BY LOOSE STOOLS AFTER. SIGNIFICANT AMOUNT OF STOOL PASSED. PT INCONTINENT OF URINE IN ER AND ONCE UPON ARIVAL. NONE SINCE. URINE CLEAR/YELLOW. LACTULOSE Q2HRS DC'D AND ORDERED AT QID. WILL CONTINUE TO MONITOR UNTIL REPORT GIVEN TO AM RN.
--- NOTE | 2022-06-02 08:50 | NUR ---
AM NOTE... ASSUMED CARE OF PT AT 0700 THE PT IS A&Ox3, PLEASENT AND COOPERATIVE WITH CARE. THE PT IS ABLE TO STATE HIS NAME, AND PLACE BUT NOT THE DATE. HE IS IN NSR IN THE 70'S BP IS STABLE. NO EDEMA NOTED ON ASSESSMENT. HE IS ON RA WITH O2 SATS >95% L/S CLEAR T/O. RR IS 14-16. BT PRESENT AND NORMOACTIVE ABD IS SOFT AND NONTENDER TO PALPATION. THE PT HAS A WOUND ON THE BOTTOM OF HIS RIGHT FOOT, PER DR. LEONARD A WOUND CARE CONSULT HAS BEEN PLACED. WILL CONTINUE TO MONITOR.
[2022-06-02 08:53] LABS: Albumin, Blood 2.4 g/dL (3.4-5.0); Albumin/Globulin Ratio 0.4 (0.8-1.8); Bilirubin, Total 1.3 mg/dL (0.1-1.0); Calcium, Blood 9.1 mg/dL (8.5-10.1); Creatinine, Blood 0.55 mg/dL (0.60-1.20); Globulin, Blood 6.7 g/dL (2.2-4.0); Potassium, Blood 3.3 mmol/L (3.5-5.5); Total Protein, Blood 9.1 g/dL (6.4-8.2)
--- NOTE | 2022-06-02 17:01 | NUR ---
SHIFT SUMMARY.... NO ACUTE NEGATIVE CHANGES NOTED THIS SHIFT. THE PT'S VS HAVE BEEN STABLE. THE PT HAS HAD APROX 8 STOOLS THIS SHIFT PER IT RISK AND ASSURANCE SENIOR MANAGER REPORT. THE PT IS CURRENTLY A&Ox4. HE CONTINUES ON RA WITH O2 SATS >95% L/S ARE DIM AND SLIGHTLY COARSE IN THE BASES, HE HAS BREATHING TREATMENTS Q4 PRN ORDERED. HE HAS BEEN WALKING TO THE TOILET WITH SBA WITHOUT ISSUE. CALL LIGHT IN REACH WILL CONTINUE TO MONITOR UNTIL REPORT IS GIVEN.
--- NOTE | 2022-06-02 18:29 | NUR ---
TRANSFER: PT ARRIVED TO MEDICAL FLOOR FROM ICU1 AT 1810. PT ALERT AND ORIENTED X3-4. PT PLEASANT WITH ALL CARE. ORIENTED PT TO ROOM AND HW TO USE CALL LIGHT. PT HAS NOT C/O PAIN OR N/V. IV PATENT AND FUSHING W/O ISSUES. CALL REPORT TO NEXT SHIFT.
[2022-06-03 05:24] LABS: BASOPHILS ABSOLUTE AUTO 0.08 K/mm3 (0.00-0.23); BASOPHILS PERCENT AUTO 2 % (0-2); EOSINOPHILS PERCENT AUTO 20 % (0-6); Hematocrit 27.4 % (37.0-53.0); Hemoglobin 9.2 g/dL (13.5-17.5); Mean Corpuscular HGB 31.9 pg (26.0-34.0); Mean Corpuscular HGB Conc 33.6 g/dL (31.5-36.5); Mean Corpuscular Volume 95 fL (80-100); Mean Platelet Volume 10.3 fL (9.1-12.4); Platelet Count 79 K/mm3 (150-400); RDW Coefficient Variation 16.4 % (11.7-14.2); RDW Standard Deviation 57.4 fL (35.1-46.3); Red Blood Cell Count 2.88 M/mm3 (4.30-5.90); White Blood Cell Count 4.05 K/mm3 (4.00-11.30)
[2022-06-03 05:38] LABS: Magnesium, Blood 1.7 mg/dL (1.6-2.4); Phosphorus, Blood 2.7 mg/dL (2.5-4.9)
--- NOTE | 2022-06-03 05:48 | NUR ---
Shift Summary AOX4, 1 SBA w FWW to BR, pleasant and cooperative. Held PM lactulose dose, per day nurse report pt had 8 BMs after taking lactulose in the AM and the order is to titrate to 3 BM/day. This AM pt's ammonia lab was elevated to 109, called Dr. [place] who said to give the 9 AM dose of lactulose now. VSS, no acute events, pt states he didn't sleep hardly at all.
[2022-06-03 07:02] LABS: IMMATURE GRAN ABSOLUTE AUTO 0.01 K/mm3 (0.00-0.10); IMMATURE GRAN PERCENT AUTO 0 % (0-1); LYMPHOCYTES PERCENT AUTO 27 % (21-46); MONOCYTES ABSOLUTE AUTO 0.45 K/mm3 (0.16-1.47); MONOCYTES PERCENT AUTO 11 % (4-13); NEUTROPHILS ABSOLUTE AUTO 1.61 K/mm3 (1.96-9.15); NEUTROPHILS PERCENT AUTO 40 % (41-73)
[2022-06-03] MEDS ORDERED: JUVEN PACKET1 EAC3 PO (12:11)
[2022-06-03] MEDS ORDERED: LACT10SY PO (12:11)
[2022-06-03] MEDS ORDERED: FLUTICASONE-SA1 EAC1 INH (12:13)
[2022-06-03] MEDS ORDERED: Inderal60 MG PO (12:14)
[2022-06-03] MEDS ORDERED: TIOT18 (12:15)
--- NOTE | 2022-06-03 15:19 | NUR ---
PT RESTING QUIETLY AT START OF SHIFT. WOKE EASILY FOR CARE. CALLED FOR ASSIST TO BTHRM. PT IS 1P SBA USING FWW. GREG AND CO-OP WITH CARE. ADMITTED FOR HEPATIC ENCEPHALOPATHY; RESOLVING. AM LACTULOSE GIVEN EARLY THIS AM D/T INCREASE IN AMMONIA LEVEL FROM PREVIOUS DOSES BEING HELD. DR LEONARD IN TO SEE PT THIS AM AND DISCUSS PLAN OF CARE. MEDICATION ADJUSTMENTS MADE, D/C ORDERS PLACED. PT REPORTED PREVIOUS HOME DOSE LACTULOSE ONLY 5 GM'S; NEW HOME DOSE INCREASED TO 20 GM'S. MEDS FAXED TO [facility], PER PT REQUEST. D/C INSTRUCTIONS REVIEWED WITH PT; VERBALIZED UNDERSTANDING. PT CALLED FOR NEIGHBOR TO PICK HIM UP. PT ASSISTED OUT TO CAR VIA W/C. NEIGHBOR ASSISTED PT WITH ALL BELONGINGS.
== END 2022-06-03 13:06 | disposition home or self-care (01) | DRG 442 ==
LOC: ER 19:15 → ICUW 23:31 → ICUE 23:31 → MEDS 06-02 18:09
PROVIDERS: Family Medicine; Hospitalist; Student in an Organized Health Care Education/Training Program; ADMIT Internal Medicine
DX: K76.82 Hepatic encephalopathy (principal); D61.818 Other pancytopenia; K74.60 Unspecified cirrhosis of liver; Z20.822 Contact with and (suspected) exposure to COVID-19; I25.10 Atherosclerotic heart disease of native coronary artery without angina pectoris; I10 Essential (primary) hypertension; E78.00 Pure hypercholesterolemia, unspecified; J44.9 Chronic obstructive pulmonary disease, unspecified; E11.621 Type 2 diabetes mellitus with foot ulcer; L97.509 Non-pressure chronic ulcer of other part of unspecified foot with unspecified severity; D50.9 Iron deficiency anemia, unspecified; D72.10 Eosinophilia, unspecified; I45.81 Long QT syndrome; G89.29 Other chronic pain; M54.9 Dorsalgia, unspecified; I25.2 Old myocardial infarction; Z88.0 Allergy status to penicillin; Z79.02 Long term (current) use of antithrombotics/antiplatelets; Z79.4 Long term (current) use of insulin; Z79.899 Other long term (current) drug therapy; Z98.890 Other specified postprocedural states; Z87.891 Personal history of nicotine dependence; Z28.21 Immunization not carried out because of patient refusal
CPT/HCPCS: 0241U; 36415; 51701; 70450; 71045; 80053; 81001; 82140; 82947; 83735; 84100; 84145; 85025; 93005; 93010; 94640; 94664; 94760; 94762; 97116; 97162; 97165; 97530; 99285-25; A9270

== ENCOUNTER 2022-06-09 01:20 | Day surgery (SDC) | payer MEDICARE, OTHER ==
[~2022-06-09 01:20] MED LIST changes: +FLUTICASONE-SA1 EAC1 INH; +Inderal60 MG PO; +JUVEN PACKET1 EAC3 PO; +TIOT18
== END 2022-06-09 22:48 | disposition home or self-care (01) ==
LOC: WOUND 01:20
DX: E11.621 Type 2 diabetes mellitus with foot ulcer (principal); L97.512 Non-pressure chronic ulcer of other part of right foot with fat layer exposed; E11.40 Type 2 diabetes mellitus with diabetic neuropathy, unspecified; R77.0 Abnormality of albumin; R63.4 Abnormal weight loss
CPT/HCPCS: A9270

== ENCOUNTER 2022-06-12 10:50 | Inpatient (IN) | payer MEDICARE, OTHER ==
[~2022-06-12] VITALS: Ht 182.9 cm; Wt 83.7 kg
[2022-06-12 11:19] LABS: BASOPHILS ABSOLUTE AUTO 0.07 K/mm3 (0.00-0.23); BASOPHILS PERCENT AUTO 1 % (0-2); EOSINOPHILS ABSOLUTE AUTO 0.67 K/mm3 (0.00-0.68); EOSINOPHILS PERCENT AUTO 12 % (0-6); Hematocrit 31.2 % (37.0-53.0); Hemoglobin 10.5 g/dL (13.5-17.5); IMMATURE GRAN ABSOLUTE AUTO 0.03 K/mm3 (0.00-0.10); IMMATURE GRAN PERCENT AUTO 1 % (0-1); LYMPHOCYTES ABSOLUTE AUTO 0.88 K/mm3 (0.84-5.20); LYMPHOCYTES PERCENT AUTO 15 % (21-46); MONOCYTES ABSOLUTE AUTO 0.51 K/mm3 (0.16-1.47); MONOCYTES PERCENT AUTO 9 % (4-13); Mean Corpuscular HGB 32.6 pg (26.0-34.0); Mean Corpuscular HGB Conc 33.7 g/dL (31.5-36.5); Mean Corpuscular Volume 97 fL (80-100); NEUTROPHILS ABSOLUTE AUTO 3.66 K/mm3 (1.96-9.15); NEUTROPHILS PERCENT AUTO 63 % (41-73); Platelet Count 96 K/mm3 (150-400); RDW Coefficient Variation 16.9 % (11.7-14.2); RDW Standard Deviation 60.2 fL (35.1-46.3); Red Blood Cell Count 3.22 M/mm3 (4.30-5.90); White Blood Cell Count 5.82 K/mm3 (4.00-11.30)
[2022-06-12 11:20] LABS: Source, Urine Straight Cath
[2022-06-12 11:34] LABS: Appearance, Urine Cloudy (Clear); Bilirubin, Urine Neg (Neg); Blood, Urine 4+ (Neg); Color, Urine Yellow (P-Yellow); Glucose Qualitative, Urine Neg (Neg); Ketones, Urine Neg (Neg); Leukocyte Esterase, Urine 3+ (Neg); Nitrite, Urine Neg (Neg); Protein, Urine 1+ (Neg); Specific Gravity, Urine 1.015 (1.003-1.022); Urobilinogen, Urine 2+ (Normal)
[2022-06-12 11:38] LABS: Albumin, Blood 2.3 g/dL (3.4-5.0); Albumin/Globulin Ratio 0.4 (0.8-1.8); Bilirubin, Total 1.5 mg/dL (0.1-1.0); Bun/Creatinine Ratio 24.1 (12.0-20.0); Calcium, Blood 8.7 mg/dL (8.5-10.1); Creatinine, Blood 0.66 mg/dL (0.60-1.20); Globulin, Blood 6.4 g/dL (2.2-4.0); Potassium, Blood 3.8 mmol/L (3.5-5.5); Total Protein, Blood 8.7 g/dL (6.4-8.2)
[2022-06-12 11:56] LABS: White Blood Cells, Urine 25-50 /hpf (0-5)
[2022-06-12 11:58] LABS: Bacteria Many /hpf; Renal Epithelial Rare /hpf (0-Rare); Squamous Epithelial Cells Rare /hpf (Few)
[2022-06-12 12:22] LABS: Influenza A, PCR NEGATIVE (NEGATIVE); Influenza B, PCR NEGATIVE (NEGATIVE); Resp Syncytial Virus, PCR NEGATIVE (NEGATIVE); SARS-Cov-2 (COVID-19) PCR, MMC NEGATIVE (NEGATIVE)
--- NOTE | 2022-06-12 20:15 | NUR ---
PT ARRIVES TO THE FLOOR VIA ED ELIDIA AT 2002. UPON ARRIVAL THE PT IS SLEEPING. THE PT IS LETHARGIC, BUT AROUSES TO VERBAL STIMULI. THE PT WAS TRANSFERED VIA SLIDER SHEET. THE PT APPEARS TO BE IN NO ACUTE DISTRESS UPON ADMIT. THE PT DENIES ANY PAIN, CHEST PAIN/PRESSURE OR SOB UPON ARRIVAL. THE PT IS ORIENTATED TO SELF AND SITUATION.
[2022-06-13 04:21] LABS: Hematocrit 27.7 % (37.0-53.0); Hemoglobin 9.3 g/dL (13.5-17.5); Mean Corpuscular HGB Conc 33.6 g/dL (31.5-36.5); Mean Corpuscular Volume 95 fL (80-100); Mean Platelet Volume 10.1 fL (9.1-12.4); Platelet Count 88 K/mm3 (150-400); RDW Coefficient Variation 16.8 % (11.7-14.2); RDW Standard Deviation 58.4 fL (35.1-46.3); Red Blood Cell Count 2.91 M/mm3 (4.30-5.90); White Blood Cell Count 5.18 K/mm3 (4.00-11.30)
[2022-06-13 04:38] LABS: Bun/Creatinine Ratio 24.8 (12.0-20.0); Creatinine, Blood 0.61 mg/dL (0.60-1.20); Potassium, Blood 3.5 mmol/L (3.5-5.5)
--- NOTE | 2022-06-13 05:28 | NUR ---
SHIFT SUMMARY; NO ACUTE CHANGES OVERNIGHT. THE PT RESTED IN BED SINCE ADMIT. A PICTURE OF THE PTS DIABETIC ULCER ON THE R OUTER PLANTAR SURFACE OF THE FOOT IS IN THE CHART. THE PT DENIES ANY PAIN OR SOB THIS SHIFT. THE PT IS ORIENTATED TO SELF BUT THE PT HAS BECAME MORE ALERT THE SHIFT HAS PROGRESSED. THE PT USED HIS CALL LIGHT APPRPRIATELY TO USE THE URINAL THIS AM. THE PT HAS YET TO HAVE A BM SINCE ADMIT.CURRENTLY THE PT IS SLEEPING IN BED WITH THE BED IN THE LOWEST POSITION AND THE CALL LIGHT AT BEDSIDE.
--- NOTE | 2022-06-13 09:30 | NUR ---
RN GAVE REPORT TO ONCOMING NURSE GENARO
[2022-06-13] MEDS ORDERED: BREZTRI AEROS10.7 GM (11:55)
[2022-06-13] MEDS ORDERED: KLOR-CON 1010 ME1 PO (13:01)
[2022-06-13] MEDS ORDERED: TRAZ100 PO (13:02)
[2022-06-13] MEDS ORDERED: MIRALAX17 GM PO (13:02)
[2022-06-13] MEDS ORDERED: Docusate Sodiu250 MG PO (13:03)
[2022-06-13] MEDS ORDERED: Vitamin D1000 UNI1 PO (13:03)
[2022-06-13] MEDS ORDERED: MAGNESIUM OXID500 MG PO (13:06)
--- NOTE | 2022-06-13 18:27 | NUR ---
END OF SHIFT SUMMARY: PATIENT DENIED PAIN OR DISCOMFORT THROUGHOUT THE SHIFT. PATIENT HAD IMPROVED MENTATION AND ALERTNESS DURING THE SHIFT. PATIENT'S SIGNIFICANT OTHER REPORTS THAT HE IS STILL NOT AT BASELINE. RN NOTED THAT PATIENT HAD DIFFICULTY WITH WORD FINDING AT TIMES. PATIENT USED HIS CALL LIGHT APPROPRIATELY AND IS ABLE TO EASILY MAKE HIS NEEDS KNOWN. PATIENT HAD 3 LOOSE BMS THIS AFTERNOON. PATIENT WAS CONTINENT FOR ALL THREE. PATIENT CONTINENT OF BLADDER WELL. PATIENT WALKED WITH PT IN THE MAN[place]ANARES. PATIENT UP TO THE CHAIR FOR MEALS. PATIENT USES THE WALKER APPROPRIATELY.
--- NOTE | 2022-06-14 04:00 | NUR ---
SHIFT SUMMARY; NO ACUTE CHANGES OVERNIGHT. THE PT IS AXO X3 THIS EVENING. THE PT US[facility] THE CALL [facility]. I DID A DRESSING CHANGE ON THE PTS DIABETIC ULCER ON THE R FOOT THIS PM. THE PT RESTED IN BED FOR THE ENTIRETY OF THE NIGHT. POSSIBLE D/C TODAY. CURRENTLY THE PT IS SLEEPING IN BED WITH THE BED IN THE LOWEST POSITION AND THE CALL LIGHT AT BEDSIDE. THE PT DENIES ANY PAIN, SOB, CHEST PAIN OR PRESSURE.
[2022-06-14] MEDS ORDERED: LEVFLO500 PO (14:54)
--- NOTE | 2022-06-14 15:00 | NUR ---
SHIFT SUMMARY PT IS ROOM AIR. VSS. IV ACCESS TO RFA. CONTINENT WITH SBA TO BATHROOM FOR SAFETY. PT'S SKIN IS DRY AND FRAGILE. PLANNING FOR DISCHARGE LATER TODAY. RN VERBALLY DICUSSED POC WITH [place] QUICK TO DISCHARGE IF PT CAN INDEPENDENTLY SHOWER. 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 RN CHANGED DIABETIC WOUND TO RIGHT FOOT, FOLLOWING WOUND CARE ORDERS FROM CONSULT FROM WOUND NURSE. CLEANSED WITH DERMAL WOUND CLEANSER, FILLED WITH BLUE FOAM, AND COVERED WITH A MEPILEX. RN WILL UPDATE DR. PADGETT AND PROCEED WITH DISHARGE ORDERS.
--- NOTE | 2022-06-14 16:00 | NUR ---
DISCHARGE SUMMARY RN COMPLETED DISCHARGE EDUCATION WITH PT AND PT'S SIGNIFICANT OTHER/CAREGIVER EDNA, INCLUDING MEDICATIONS TO STOP AND NEW RX'S SENT TO [facility]. SHIP CEILER DENA FAXED RX'S NEEDED TO [facility]. RN REMOVED IV, WITHOUT DIFFICULTY. PT BELONGINGS RETURNED. PT WAS ESCORTED TO PRIVATE VEHICLE DRIVEN BY HIS GRANDSON , VIA WHEELCHAIR POWERED BY RN.
== END 2022-06-14 16:00 | disposition home health service (06) | DRG 871 ==
LOC: ER 10:50 → MEDS 19:37 → ENPENDDIS 06-14 14:44 → MEDS 06-14 16:00
PROVIDERS: Emergency Medicine; ADMIT Internal Medicine
DX: A41.81 Sepsis due to Enterococcus (principal); G92.8 Other toxic encephalopathy; K65.2 Spontaneous bacterial peritonitis; N39.0 Urinary tract infection, site not specified; K74.60 Unspecified cirrhosis of liver; J44.9 Chronic obstructive pulmonary disease, unspecified; E11.621 Type 2 diabetes mellitus with foot ulcer; I10 Essential (primary) hypertension; K76.82 Hepatic encephalopathy; D69.6 Thrombocytopenia, unspecified; I25.10 Atherosclerotic heart disease of native coronary artery without angina pectoris; M54.9 Dorsalgia, unspecified; G89.29 Other chronic pain; D50.9 Iron deficiency anemia, unspecified; E78.00 Pure hypercholesterolemia, unspecified; L97.519 Non-pressure chronic ulcer of other part of right foot with unspecified severity; E78.5 Hyperlipidemia, unspecified; G47.00 Insomnia, unspecified; B95.7 Other staphylococcus as the cause of diseases classified elsewhere; Z20.822 Contact with and (suspected) exposure to COVID-19; Z88.0 Allergy status to penicillin; Z79.899 Other long term (current) drug therapy; Z79.84 Long term (current) use of oral hypoglycemic drugs; Z79.02 Long term (current) use of antithrombotics/antiplatelets; Z79.4 Long term (current) use of insulin; Z79.52 Long term (current) use of systemic steroids; I25.2 Old myocardial infarction; Z87.19 Personal history of other diseases of the digestive system; Z98.890 Other specified postprocedural states; Z87.891 Personal history of nicotine dependence
CPT/HCPCS: 0241U; 36415; 71045; 80048; 80053; 81001; 82140; 82947; 83036; 85025; 85027; 87077; 87086; 87186; 93005; 93010; 94640; 94664; 94760; 96374; 97110; 97161; 99285-25; A9270; J0696; J1815

== ENCOUNTER 2022-06-23 00:25 | Day surgery (SDC) | payer MEDICARE, OTHER ==
[~2022-06-23 00:25] MED LIST changes: +BREZTRI AEROS10.7 GM; +Docusate Sodiu250 MG PO; +KLOR-CON 1010 ME1 PO; +LEVFLO500 PO; +Vitamin D1000 UNI1 PO
== END 2022-06-23 22:58 | disposition home or self-care (01) ==
LOC: WOUND 00:25
DX: E11.621 Type 2 diabetes mellitus with foot ulcer (principal); L97.412 Non-pressure chronic ulcer of right heel and midfoot with fat layer exposed; E11.40 Type 2 diabetes mellitus with diabetic neuropathy, unspecified; E11.51 Type 2 diabetes mellitus with diabetic peripheral angiopathy without gangrene; R63.4 Abnormal weight loss; R77.0 Abnormality of albumin

== ENCOUNTER 2022-07-01 15:20 | Emergency (ER) | payer MEDICARE, OTHER ==
[~2022-07-01] VITALS: Ht 188 cm; Wt 89.4 kg
[2022-07-01 15:48] LABS: BASOPHILS ABSOLUTE AUTO 0.06 K/mm3 (0.00-0.23); BASOPHILS PERCENT AUTO 1 % (0-2); EOSINOPHILS ABSOLUTE AUTO 0.84 K/mm3 (0.00-0.68); EOSINOPHILS PERCENT AUTO 20 % (0-6); Hematocrit 32.5 % (37.0-53.0); Hemoglobin 10.8 g/dL (13.5-17.5); IMMATURE GRAN ABSOLUTE AUTO 0.01 K/mm3 (0.00-0.10); IMMATURE GRAN PERCENT AUTO 0 % (0-1); LYMPHOCYTES ABSOLUTE AUTO 1.05 K/mm3 (0.84-5.20); LYMPHOCYTES PERCENT AUTO 25 % (21-46); MONOCYTES ABSOLUTE AUTO 0.55 K/mm3 (0.16-1.47); MONOCYTES PERCENT AUTO 13 % (4-13); Mean Corpuscular HGB Conc 33.2 g/dL (31.5-36.5); Mean Corpuscular Volume 96 fL (80-100); NEUTROPHILS ABSOLUTE AUTO 1.65 K/mm3 (1.96-9.15); NEUTROPHILS PERCENT AUTO 40 % (41-73); Platelet Count 90 K/mm3 (150-400); RDW Coefficient Variation 17.2 % (11.7-14.2); RDW Standard Deviation 59.6 fL (35.1-46.3); Red Blood Cell Count 3.38 M/mm3 (4.30-5.90); White Blood Cell Count 4.16 K/mm3 (4.00-11.30)
[2022-07-01 16:06] LABS: Albumin, Blood 2.2 g/dL (3.4-5.0); Albumin/Globulin Ratio 0.3 (0.8-1.8); Bilirubin, Total 1.5 mg/dL (0.1-1.0); Bun/Creatinine Ratio 14.6 (12.0-20.0); Calcium, Blood 8.3 mg/dL (8.5-10.1); Creatinine, Blood 0.68 mg/dL (0.60-1.20); Globulin, Blood 6.3 g/dL (2.2-4.0); Potassium, Blood 3.5 mmol/L (3.5-5.5); Total Protein, Blood 8.5 g/dL (6.4-8.2)
[2022-07-01 16:30] LABS: Source, Urine Clean Catch
[2022-07-01 16:51] LABS: Appearance, Urine Clear (Clear); Bilirubin, Urine Neg (Neg); Blood, Urine 2+ (Neg); Color, Urine Yellow (P-Yellow); Glucose Qualitative, Urine Neg (Neg); Ketones, Urine Neg (Neg); Leukocyte Esterase, Urine Neg (Neg); Nitrite, Urine Neg (Neg); Protein, Urine Neg (Neg); Urobilinogen, Urine NORM (Normal)
[2022-07-01 16:56] LABS: International Normalized Ratio 1.33; Prothrombin Time Results 13.7 Sec (9.7-11.5)
[2022-07-01 17:01] LABS: White Blood Cells, Urine 0-2 /hpf (0-5)
[2022-07-01 17:02] LABS: Bacteria Rare /hpf; Squamous Epithelial Cells Not Seen /hpf (Few)
== END 2022-07-01 19:18 | disposition home or self-care (01) ==
LOC: ER 15:20
PROVIDERS: Emergency Medicine
DX: K76.9 Liver disease, unspecified (principal); S51.812A Laceration without foreign body of left forearm, initial encounter; S51.811A Laceration without foreign body of right forearm, initial encounter; W01.0XXA Fall on same level from slipping, tripping and stumbling without subsequent striking against object, initial encounter; E11.621 Type 2 diabetes mellitus with foot ulcer; I10 Essential (primary) hypertension; I25.10 Atherosclerotic heart disease of native coronary artery without angina pectoris; J44.9 Chronic obstructive pulmonary disease, unspecified; E78.00 Pure hypercholesterolemia, unspecified; Z88.0 Allergy status to penicillin; Z87.891 Personal history of nicotine dependence; Z79.899 Other long term (current) drug therapy; Z79.4 Long term (current) use of insulin
CPT/HCPCS: 36415; 70450; 80053; 81001; 82140; 85025; 85610; A9270

== ENCOUNTER 2022-07-28 00:24 | Day surgery (SDC) | payer MEDICARE, OTHER | END 2022-07-28 23:11 | disposition home or self-care (01) | LOC: WOUND 00:24 | DX: E11.621 Type 2 diabetes mellitus with foot ulcer (principal); L97.512 Non-pressure chronic ulcer of other part of right foot with fat layer exposed; E11.40 Type 2 diabetes mellitus with diabetic neuropathy, unspecified; E11.51 Type 2 diabetes mellitus with diabetic peripheral angiopathy without gangrene | CPT/HCPCS: G0463 ==

== ENCOUNTER 2022-08-11 02:02 | Day surgery (SDC) | payer MEDICARE, OTHER | END 2022-08-11 22:51 | disposition home or self-care (01) | LOC: WOUND 02:02 | DX: E11.621 Type 2 diabetes mellitus with foot ulcer (principal); L97.415 Non-pressure chronic ulcer of right heel and midfoot with muscle involvement without evidence of necrosis; E11.51 Type 2 diabetes mellitus with diabetic peripheral angiopathy without gangrene; L03.116 Cellulitis of left lower limb; E11.40 Type 2 diabetes mellitus with diabetic neuropathy, unspecified; R77.0 Abnormality of albumin; R63.4 Abnormal weight loss; Z68.24 Body mass index [BMI] 24.0-24.9, adult | CPT/HCPCS: A9270 ==

== ENCOUNTER 2022-08-18 01:44 | Day surgery (SDC) | payer MEDICARE, OTHER ==
[2022-08-18] MEDS ORDERED: XIFAXAN550 MG PO (10:25)
[2022-08-18] MEDS ORDERED: DOXY100 PO (12:28)
[2022-08-18] MEDS ORDERED: CEPH500 PO (12:28)
== END 2022-08-18 22:38 | disposition home or self-care (01) ==
LOC: WOUND 01:44
DX: E11.621 Type 2 diabetes mellitus with foot ulcer (principal); L97.512 Non-pressure chronic ulcer of other part of right foot with fat layer exposed; E11.51 Type 2 diabetes mellitus with diabetic peripheral angiopathy without gangrene; E11.40 Type 2 diabetes mellitus with diabetic neuropathy, unspecified; R77.0 Abnormality of albumin; R63.4 Abnormal weight loss
CPT/HCPCS: G0463

== ENCOUNTER 2022-08-18 09:53 | Emergency (ER) | payer MEDICARE, OTHER ==
[~2022-08-18] VITALS: Ht 190.5 cm; Wt 90.7 kg
[2022-08-18] MEDS ORDERED: XIFAXAN550 MG PO (10:25)
[2022-08-18 10:32] LABS: BASOPHILS ABSOLUTE AUTO 0.06 K/mm3 (0.00-0.23); BASOPHILS PERCENT AUTO 2 % (0-2); EOSINOPHILS ABSOLUTE AUTO 0.86 K/mm3 (0.00-0.68); EOSINOPHILS PERCENT AUTO 21 % (0-6); Hematocrit 29.4 % (37.0-53.0); Hemoglobin 9.6 g/dL (13.5-17.5); IMMATURE GRAN ABSOLUTE AUTO 0.01 K/mm3 (0.00-0.10); IMMATURE GRAN PERCENT AUTO 0 % (0-1); LYMPHOCYTES PERCENT AUTO 20 % (21-46); MONOCYTES ABSOLUTE AUTO 0.39 K/mm3 (0.16-1.47); MONOCYTES PERCENT AUTO 10 % (4-13); Mean Corpuscular HGB Conc 32.7 g/dL (31.5-36.5); Mean Corpuscular Volume 95 fL (80-100); Mean Platelet Volume 10.2 fL (9.1-12.4); NEUTROPHILS ABSOLUTE AUTO 1.91 K/mm3 (1.96-9.15); NEUTROPHILS PERCENT AUTO 47 % (41-73); Platelet Count 103 K/mm3 (150-400); RDW Coefficient Variation 16.5 % (11.7-14.2); RDW Standard Deviation 57.9 fL (35.1-46.3); White Blood Cell Count 4.03 K/mm3 (4.00-11.30)
[2022-08-18 10:50] LABS: Albumin, Blood 2.1 g/dL (3.4-5.0); Albumin/Globulin Ratio 0.3 (0.8-1.8); Bilirubin, Total 0.9 mg/dL (0.1-1.0); Bun/Creatinine Ratio 21.5 (12.0-20.0); Calcium, Blood 7.9 mg/dL (8.5-10.1); Creatinine, Blood 0.65 mg/dL (0.60-1.20); Globulin, Blood 6.9 g/dL (2.2-4.0); Potassium, Blood 3.9 mmol/L (3.5-5.5)
[2022-08-18] MEDS ORDERED: DOXY100 PO (12:28)
[2022-08-18] MEDS ORDERED: CEPH500 PO (12:28)
== END 2022-08-18 12:57 | disposition home or self-care (01) ==
LOC: ER 09:53
PROVIDERS: Emergency Medicine
DX: L03.115 Cellulitis of right lower limb (principal); E72.20 Disorder of urea cycle metabolism, unspecified; G93.40 Encephalopathy, unspecified; E11.9 Type 2 diabetes mellitus without complications; I25.10 Atherosclerotic heart disease of native coronary artery without angina pectoris; I10 Essential (primary) hypertension; J44.9 Chronic obstructive pulmonary disease, unspecified; I25.2 Old myocardial infarction; Z88.0 Allergy status to penicillin; Z79.899 Other long term (current) drug therapy; Z79.4 Long term (current) use of insulin; Z87.891 Personal history of nicotine dependence
CPT/HCPCS: 36415; 80053; 82140; 85025; J0696

== ENCOUNTER 2022-09-02 07:51 | Observation (INO) | payer MEDICARE, OTHER ==
[~2022-09-02] VITALS: Ht 190.5 cm; Wt 88.4 kg
[~2022-09-02 07:51] MED LIST changes: +DOXY100 PO; +XIFAXAN550 MG PO
[2022-09-02 08:47] LABS: Base Excess Venous -1.9 mmol/L; Bicarbonate Venous 23.2 mmol/L (24.0-30.0); PCO2 Venous 34.3 mmHg (38-42); pH Blood Venous 7.43 (7.34-7.37)
[2022-09-02 08:55] LABS: BASOPHILS ABSOLUTE AUTO 0.04 K/mm3 (0.00-0.23); BASOPHILS PERCENT AUTO 1 % (0-2); EOSINOPHILS ABSOLUTE AUTO 0.73 K/mm3 (0.00-0.68); EOSINOPHILS PERCENT AUTO 17 % (0-6); Hematocrit 30.8 % (37.0-53.0); Hemoglobin 10.4 g/dL (13.5-17.5); IMMATURE GRAN ABSOLUTE AUTO 0.02 K/mm3 (0.00-0.10); IMMATURE GRAN PERCENT AUTO 1 % (0-1); LYMPHOCYTES ABSOLUTE AUTO 0.92 K/mm3 (0.84-5.20); LYMPHOCYTES PERCENT AUTO 21 % (21-46); MONOCYTES ABSOLUTE AUTO 0.42 K/mm3 (0.16-1.47); MONOCYTES PERCENT AUTO 10 % (4-13); Mean Corpuscular HGB 31.2 pg (26.0-34.0); Mean Corpuscular HGB Conc 33.8 g/dL (31.5-36.5); Mean Corpuscular Volume 93 fL (80-100); NEUTROPHILS ABSOLUTE AUTO 2.22 K/mm3 (1.96-9.15); NEUTROPHILS PERCENT AUTO 51 % (41-73); Platelet Count 94 K/mm3 (150-400); RDW Coefficient Variation 16.7 % (11.7-14.2); RDW Standard Deviation 55.5 fL (35.1-46.3); Red Blood Cell Count 3.33 M/mm3 (4.30-5.90); White Blood Cell Count 4.35 K/mm3 (4.00-11.30)
[2022-09-02 09:08] LABS: Albumin, Blood 2.2 g/dL (3.4-5.0); Albumin/Globulin Ratio 0.3 (0.8-1.8); Bilirubin, Direct 0.6 mg/dL (0.0-0.3); Bilirubin, Indirect 1.1 mg/dL (0.1-0.7); Bilirubin, Total 1.7 mg/dL (0.1-1.0); Bun/Creatinine Ratio 20.4 (12.0-20.0); Calcium, Blood 8.4 mg/dL (8.5-10.1); Creatinine, Blood 0.64 mg/dL (0.60-1.20); Globulin, Blood 6.7 g/dL (2.2-4.0); Magnesium, Blood 1.6 mg/dL (1.6-2.4); Potassium, Blood 3.3 mmol/L (3.5-5.5); Total Protein, Blood 8.9 g/dL (6.4-8.2)
[2022-09-02 09:17] LABS: Source, Urine Clean Catch
[2022-09-02 09:29] LABS: Appearance, Urine Clear (Clear); Bilirubin, Urine Neg (Neg); Blood, Urine 1+ (Neg); Color, Urine Yellow (P-Yellow); Glucose Qualitative, Urine 1+ (Neg); Ketones, Urine Neg (Neg); Leukocyte Esterase, Urine Neg (Neg); Nitrite, Urine Neg (Neg); Protein, Urine Neg (Neg); Specific Gravity, Urine 1.015 (1.003-1.022); Urobilinogen, Urine 1+ (Normal)
[2022-09-02 09:39] LABS: Bacteria Few /hpf; Red Blood Cells, Urine 0-2 /hpf (0-2); Squamous Epithelial Cells Few /hpf (Few); White Blood Cells, Urine Not Seen /hpf (0-5)
[2022-09-02] MEDS ORDERED: Insulin Glargine-Yfg SC (12:37)
[2022-09-02] MEDS ORDERED: ATORVASTATIN CA80 M1 PO (12:38)
[2022-09-02] MEDS ORDERED: CLOP75 PO (12:39)
[2022-09-02] MEDS ORDERED: FeroSul 325 mg (65 m PO (12:40)
[2022-09-02] MEDS ORDERED: Advair Diskus 250-50 INH (12:41)
[2022-09-02] MEDS ORDERED: LOSARTAN POTAS100 M1 PO (12:42)
[2022-09-02] MEDS ORDERED: INDERAL XL120 MG PO (12:43)
[2022-09-02] MEDS ORDERED: RIFA550T2 PO (12:44)
[2022-09-02 13:03] VITALS: BP 132/57
--- NOTE | 2022-09-02 14:54 | NUR ---
CALLED DR HERRING- SPOKE TO PATTERN MECHANIC JONATHAN AND REVIEWED FOOT XR READING. NO MENTION OF YES OR NO POSSIBLE OSTEOMYELITIS. SPOKE TO DR HERRING WHO VERBALLY CONFIRMED NO OSTEOMEYLITIS. CURRENTLY NO WEIGHT BEARING PRECAUTIONS ON THIS PT, PT AND OT DECLINED TO WORK WITH THE PT UNTIL WT BEARING PRECAUTUINS ARE IN. WILL CALL DR SALAZAR.
--- NOTE | 2022-09-02 15:01 | NUR ---
1300 ARRIVED TO ROOM, CALL LIGHT IN REACH OF PATIENT. PER PATIENT REQUEST PHONE CALL MADE TO HIS , NO ANSWER AT THIS TIME. PT DENIES PAIN, REPORTS NUMBNESS TO BLE,
--- NOTE | 2022-09-02 15:03 | NUR ---
REPORT GIVEN TO TERI SINHA RN. BOILING HOUSE HAND HERE TO SEE PATIENT
--- NOTE | 2022-09-02 15:09 | NUR ---
CALLED DR RIOS- PT BLOOD TRANSFUSION COMPLETED AT 1200 AND BLOOD DRAW WAS COMPLETED AT 1230. HGB READING NO LONGER CRITICAL BUT HGB IS 6.2. PLANNING TO PLACE THE ORDER FOR 1 MORE UNIT OF PRBC'S. CONSULT FOR GI WAS CALLED BY DR RIOS HERSELF SO DOES NOT NEED TO BE CALLED, AWAITING THE NEW ORDERS AT THIS TIME.
--- NOTE | 2022-09-02 16:16 | NUR ---
WOUND CARE PT IS KNOWN TO THIS RN FROM OUTPATIENT WC. WOUND CLEANSED WITH SKINTEGRITY AND 4X4. IODOFLEX TO WOUND BED COVERED WITH OPTILOCK AND SECURED WITH TAPE. PHOTO AND ASSESSMENT IN HARD CHART.
[2022-09-02 19:40] VITALS: BP 140/66
--- NOTE | 2022-09-02 20:21 | NUR ---
SHIFT SUMMARY- PT ALERT TO SELF AND FAMILY. HE WAS ADMITTED FOR HEPATIC ENCEPHELOPATHY, HAS A LARGE STAGE 2 DIABETIC ULCER ON HIS RIGHT FOOT (PIC IN CHART). WOUND CARE CONSULTED AND CAME TO DRESS THE WOUND. PT HAS DENIED THE NEED FOR PAIN MEDS SINCE ADMISSION AND DENIES N/T. SPOKE TO RADIOLOGY ABOUT THE IMAGING PER DR PATEL THERE IS NO SIGHN OF OSTEOMEYOLITIS. PASSED ALL ON IN REPORT TO NIGHT RN. PT ON THE BED JOHNSON, CALL LIGHT IN REACH NO S&S OF DISTRESS NOTED AT THE TIME OF REPORT. PT ISOLATION FOR MRSA.
[2022-09-03 04:54] VITALS: BP 125/58
[2022-09-03 05:35] LABS: BASOPHILS ABSOLUTE AUTO 0.05 K/mm3 (0.00-0.23); BASOPHILS PERCENT AUTO 1 % (0-2); EOSINOPHILS ABSOLUTE AUTO 0.66 K/mm3 (0.00-0.68); EOSINOPHILS PERCENT AUTO 15 % (0-6); Hematocrit 28.7 % (37.0-53.0); Hemoglobin 9.6 g/dL (13.5-17.5); IMMATURE GRAN ABSOLUTE AUTO 0.01 K/mm3 (0.00-0.10); IMMATURE GRAN PERCENT AUTO 0 % (0-1); LYMPHOCYTES ABSOLUTE AUTO 1.08 K/mm3 (0.84-5.20); LYMPHOCYTES PERCENT AUTO 25 % (21-46); MONOCYTES ABSOLUTE AUTO 0.49 K/mm3 (0.16-1.47); MONOCYTES PERCENT AUTO 11 % (4-13); Mean Corpuscular HGB 31.1 pg (26.0-34.0); Mean Corpuscular HGB Conc 33.4 g/dL (31.5-36.5); Mean Corpuscular Volume 93 fL (80-100); Mean Platelet Volume 10.3 fL (9.1-12.4); NEUTROPHILS PERCENT AUTO 47 % (41-73); Platelet Count 86 K/mm3 (150-400); RDW Coefficient Variation 16.9 % (11.7-14.2); RDW Standard Deviation 56.1 fL (35.1-46.3); Red Blood Cell Count 3.09 M/mm3 (4.30-5.90); White Blood Cell Count 4.29 K/mm3 (4.00-11.30)
[2022-09-03 05:58] LABS: Albumin, Blood 1.9 g/dL (3.4-5.0); Albumin/Globulin Ratio 0.3 (0.8-1.8); Bilirubin, Total 1.8 mg/dL (0.1-1.0); Bun/Creatinine Ratio 23.7 (12.0-20.0); Creatinine, Blood 0.59 mg/dL (0.60-1.20); Globulin, Blood 6.2 g/dL (2.2-4.0); Potassium, Blood 3.2 mmol/L (3.5-5.5); Total Protein, Blood 8.1 g/dL (6.4-8.2)
[2022-09-03 08:07] VITALS: BP 117/64
--- NOTE | 2022-09-03 08:07 | NUR ---
PT VSS T/O NIGHT. PT A/O X3 IS PLEASANT AND COOP W/CARE. RLE DRESSING FOUND OFF THIS AM, WOUND W/SS DRNG. PT DENIED PAIN. PT HAD 2 BM THIS SHIFT, GRIFFIN DRNG MIGUEL ANGEL URINE. PT REPOSITIONING SELF IN BED, IS USING CALL LIGHT FOR ASSISTANCE. BEDSIDE REPORT GIVEN TO SHARAD SOLIS.
[2022-09-03] MEDS ORDERED: Flomax0.4 MG PO (17:42)
--- NOTE | 2022-09-03 18:19 | NUR ---
DISCHARGE- PT BROUGHT DOWN IN FOR DC INTO [facility] CALLED BY HIS . PT LEFT WITH ALL BELONGINGS. PT IN STABLE CONDITION.
== END 2022-09-03 18:23 | disposition home or self-care (01) ==
LOC: ER 07:51 → MEDS 07:52
PROVIDERS: Student in an Organized Health Care Education/Training Program; ADMIT Internal Medicine
DX: K76.82 Hepatic encephalopathy (principal); K74.60 Unspecified cirrhosis of liver; I25.10 Atherosclerotic heart disease of native coronary artery without angina pectoris; E78.5 Hyperlipidemia, unspecified; J44.9 Chronic obstructive pulmonary disease, unspecified; E11.9 Type 2 diabetes mellitus without complications; I10 Essential (primary) hypertension
CPT/HCPCS: 36415; 51702; 70450; 71045; 73630; 80048; 80053; 80076; 81001; 82140; 82803; 82947; 83690; 83735; 83880; 84145; 85025; 93005; 93010; 94640; 94644; 94664; 94760; 96365; 96372; 97116; 97162; 97165; 97530; 97535; 99285-25; A9270; G0378; J1650; J1815; J3475; J7030

== ENCOUNTER 2022-09-08 01:55 | Day surgery (SDC) | payer MEDICARE, OTHER ==
[~2022-09-08 01:55] MED LIST changes: +ATORVASTATIN CA80 M1 PO; +Advair Diskus 250-50 INH; +FeroSul 325 mg (65 m PO; +Flomax0.4 MG PO; +INDERAL XL120 MG PO; +Insulin Glargine-Yfg SC; +LOSARTAN POTAS100 M1 PO; +RIFA550T2 PO
== END 2022-09-08 22:50 | disposition home or self-care (01) ==
LOC: WOUND 01:55
DX: E11.621 Type 2 diabetes mellitus with foot ulcer (principal); L97.422 Non-pressure chronic ulcer of left heel and midfoot with fat layer exposed; E11.40 Type 2 diabetes mellitus with diabetic neuropathy, unspecified; L03.116 Cellulitis of left lower limb; E11.51 Type 2 diabetes mellitus with diabetic peripheral angiopathy without gangrene; R77.0 Abnormality of albumin; R63.4 Abnormal weight loss